=== PATIENT | male | born 1945 | race Caucasian/White ===

== ENCOUNTER 2016-08-12 08:32 | Inpatient (IN) | payer OTHER ==
[~2016-08-12] VITALS: Ht 180.3 cm; Wt 82.1 kg
[~2016-08-12 08:32] MED LIST: ACETAMINOPHEN325 M1 PO; ADULT LOW DOSE81 M1 PO; ALBUTEROL2.5 MG/3 M IH; ASPIR-LOW81 MG PO; ATIVAN1 MG PO; ATORVASTATIN CA80 MG PO; Ativan PO; BENADRYL ALLERG25 MG PO; Bactrim,Septra DS 80 PO; CARVEDILOL3.125 MG PO; CEFDINIR300 MG PO; CELEXA20 MG PO; CILOSTAZOL50 MG PO; CLEOCIN150 MG PO; COLACE CLEAR50 MG PO; CONSTULOSE10 GM/15 M PO; COREG3.125 M1 PO; CORTISPORIN EY7.5 ML OP; COSOPT EYE DROPS5 ML; CUBICIN500 MG/10 IV; DICLOFENAC SODI75 MG PO; DIGOXIN125 MCG PO; ERYTHROMYC1 APPLICAT RIGHT EYE; FENOFIBRATE160 M1 PO; FERREX 150150 MG PO; FERROUS SULFAT325 MG PO; FLOMAX0.4 MG PO; FLUOXETINE HCL60 MG PO; FOLIC ACID1 MG PO; FOLTANX RF CAP1 EACH PO; FUROSEMIDE40 MG PO; Folvite PO; GLIPIZIDE10 MG PO; GLUCOPHAGE1000 MG PO; GLUCOTROL XL10 MG PO; GLUCOTROL10 MG PO; Glucotrol PO; HUMALOG100 UNIT/1 SC; HUMALOG100 UNIT/1 SQ; HUMALOG100 UNIT/2 SC; HYDROCODON-ACE1 EAC8 PO; HYDROCODONE-AP1 EAC1 PO; HYDROGESIC 5-51 EACH PO; IBUPROFEN600 MG PO; INDERIDE 40/1 TABLET PO; LEVEMIR FL100 UNITS/ SC; LEVEMIR100 UNIT/2 SC; LISINOPRIL2.5 MG PO; LISINOPRIL5 MG PO; LO-DOSE ASPIRIN81 M1 PO; LOFIBRA,TRIGLI160 MG PO; LOPERAMIDE2 M1 PO; LYRICA50 MG PO; LYRICA75 MG PO; MAGNESIUM OXID400 MG PO; METFORMIN HCL500 MG PO; MIRALAX255 GM PO; MIRTAZAPINE45 MG PO; MOTRIN800 MG PO; MULTI-DAY VITA1 EACH PO; MULTIVITAMIN1 EAC2 PO; NIFEREX-150,FE150 MG PO; NORCO 5/3251 TABLET PO; NOVOLOG PE100 UNITS/ SC; Niferex-150,Ferrex 1 PO; OXYCODONE-APAP1 EACH PO; PERCOCET 10/1 TABLET PO; PLAVIX75 MG PO; PLETAL50 MG PO; PRAVACHOL80 MG PO; PROAIR HFA8.5 GM IH; PROVENTIL,2.5 MG/3 M IH; Pletal PO; Pravachol PO; RIMACTANE,RIFA300 MG PO; SEROQUEL12.5 MG PO; SEROquel PO; SERTRALINE HCL50 MG PO; SONATA10 MG PO; SPIRIVA1 INHALATI IH; SYMBICORT60 INHALAT IH; THERAGRAN1 TABLET PO; TRESIBA FL100 UNIT/1 SC; TRESIBA FL200 UNIT/1 SC; Theragran PO; Tricor PO; VENLAFAXINE HCL75 M3 PO; VENTOLIN HFA18 GM IH; VITAMIN C500 M1 PO; Vicodin,Norco 5/325 PO; XALATAN2.5 ML LEFT EYE; ZESTRIL,PRINIVI10 MG PO; ZOCOR40 MG PO; Zestril,Prinivil PO; celeXA PO
[2016-08-12 09:33] LABS: CREATININE 0.7 mg/dL (0.6-1.3); POTASSIUM 4.1 mEq/L (3.7-5.4)
[2016-08-12 09:50] LABS: HEMATOCRIT 27.9 % (38.0-50.0); MCH 27.3 PG (29.0-34.0); MCHC 30.8 G/DL (30.0-36.0); MCV 88.6 FL (86-99); MEAN PLAT.VOLUME 11.2 uM^3 (9.0-12.4); PLATELET COUNT 129 K/uL (156-360); RBC DIS.WIDTH-SD 50.8 % (39-53); RED BLOOD COUNT 3.15 M/uL (4.00-5.50); WHITE BLOOD COUNT 8.1 K/uL (4.1-10.2)
[2016-08-12 09:55] LABS: CREATININE 1.5 mg/dL (0.6-1.3); POTASSIUM 4.2 mEq/L (3.7-5.4)
[2016-08-12 09:58] LABS: CHLORIDE 108 mEq/L (99-109)
[2016-08-12 09:59] LABS: POTASSIUM 4.2 mEq/L (3.7-5.4); SODIUM 137 mEq/L (136-147)
[2016-08-12 10:01] LABS: D-DIMER ELISA 1.43 mg/L FEU (< 0.57); GLUCOSE 180 mg/dL (70-99)
[2016-08-12 10:02] LABS: ANION GAP 8 MEQ/L (2-14)
[2016-08-12 10:03] LABS: TOTAL BILIRUBIN 0.8 mg/dL (0.0-1.0)
[2016-08-12 10:04] LABS: ALKALINE PHOSPHATASE 58 IU/L (3-129); GFR ESTIMATE (CALCULATED) 43 mL/min/
[2016-08-12 10:06] LABS: UREA NITROGEN (BUN) 40 mg/dL (9-23)
[2016-08-12] MEDS ORDERED: LANTUS 10100 UNITS/ SC ×2 (12:35→12:46)
[2016-08-12] MEDS ORDERED: LEVOFLOXACIN500 MG PO (12:36)
[2016-08-12] MEDS ORDERED: LISINOPRIL2.5 MG PO (12:40)
[2016-08-12] MEDS ORDERED: ATROVENT 00.5 MG/2.5 IH (12:41)
[2016-08-12] MEDS ORDERED: MIRTAZAPINE45 MG PO (12:46)
[2016-08-12] MEDS ORDERED: LYRICA75 MG PO (12:47)
[2016-08-12] MEDS ORDERED: MILK OF MAGN PO (13:21)
[2016-08-12] MEDS ORDERED: DULCOLAX10 MG PR (13:22)
[2016-08-12 20:05] VITALS: BP 123/59
[2016-08-12 22:35] LABS: POINT-OF-CARE METER ID UU13113781
[2016-08-12 23:19] LABS: METH RESISTANT S AUREUS PCR NEGATIVE (NEGATIVE)
[2016-08-12 23:24] LABS: PROBE CHECK PASS; SPECIMEN PROCESSING CONTROL PASS
[2016-08-13] VITALS (7 sets, daily range): BP systolic 100–122; BP diastolic 55–70
[2016-08-13 06:50] LABS: EOSINOPHIL (%) 0 % (0-5); HEMATOCRIT 26.9 % (38.0-50.0); IMMATURE GRANULOCYTE (%) 0.2 % (0.0-0.7); LYMPHOCYTE COUNT 0.5 K/uL (1.0-2.8); MCH 27.5 PG (29.0-34.0); MCHC 31.2 G/DL (30.0-36.0); MCV 87.9 FL (86-99); MEAN PLAT.VOLUME 11.4 uM^3 (9.0-12.4); MONOCYTE (%) 0.9 % (3-12); NEUTROPHIL (%) 87.2 % (45-76); NEUTROPHIL COUNT 3.9 K/uL (1.8-6.4); PLATELET COUNT 121 K/uL (156-360); RBC DIS.WIDTH-CV 16.2 % (11.8-14.6); RBC DIS.WIDTH-SD 52.4 % (39-53); RED BLOOD COUNT 3.06 M/uL (4.00-5.50)
[2016-08-13 06:52] LABS: WHITE BLOOD COUNT 4.5 K/uL (4.1-10.2)
[2016-08-13 07:03] LABS: ANION GAP 10 MEQ/L (2-14); CHLORIDE 107 MEQ/L (99-109); GFR ESTIMATE (CALCULATED) > 59 mL/min/; GLUCOSE 230 mg/dL (70-99); POTASSIUM 4.6 MEQ/L (3.7-5.4); SAMPLE HEMOLYSIS CHECK 0; SAMPLE ICTERIC CHECK 0; SAMPLE LIPEMIA CHECK 0; SODIUM 137 MEQ/L (136-147); UREA NITROGEN (BUN) 41 mg/dL (9-23)
[2016-08-13 07:16] LABS: VANCOMYCIN, TROUGH 7.4 MCG/ML (10-20)
[2016-08-13 07:47] LABS: POINT-OF-CARE METER ID UU14174216
[2016-08-13 08:52] LABS: BASE EXCESS -5.1 mEq/L (-3 to +3); BICARBONATE 20.6 mEq/L (22-26); CARBOXY HGB 1.9 % (0-5); COMMENTS - BLOOD GASES NAC+; DEVICE HHFLNC; FI02 50 %; METHEMOGLOBIN 1.5 % (0-1.5); O2 FLOW 20 L/MIN; PCO2 40 mm Hg (35-45); PO2 66 mm Hg (80-100); SITE RR; TOTAL RESP RATE 12 resp/min; pH 7.32 (7.35-7.45)
[2016-08-13 11:31] LABS: POINT-OF-CARE METER ID UU14174216
[2016-08-14 02:12] VITALS: BP 128/75
[2016-08-14 07:13] LABS: EOSINOPHIL (%) 0 % (0-5); HEMATOCRIT 27.7 % (38.0-50.0); IMMATURE GRANULOCYTE (%) 0.1 % (0.0-0.7); LYMPHOCYTE COUNT 0.6 K/uL (1.0-2.8); MCH 27.7 PG (29.0-34.0); MCHC 31.4 G/DL (30.0-36.0); MCV 88.2 FL (86-99); MEAN PLAT.VOLUME 11.5 uM^3 (9.0-12.4); MONOCYTE (%) 2.8 % (3-12); MONOCYTE COUNT 0.2 K/uL (0-0.8); NEUTROPHIL (%) 88.4 % (45-76); NEUTROPHIL COUNT 6.6 K/uL (1.8-6.4); PLATELET COUNT 106 K/uL (156-360); RBC DIS.WIDTH-CV 16.4 % (11.8-14.6); RED BLOOD COUNT 3.14 M/uL (4.00-5.50)
[2016-08-14 07:14] LABS: WHITE BLOOD COUNT 7.5 K/uL (4.1-10.2)
[2016-08-14 07:43] LABS: ANION GAP 12 MEQ/L (2-14); CHLORIDE 109 MEQ/L (99-109); GFR ESTIMATE (CALCULATED) > 59 mL/min/; GLUCOSE 435 mg/dL (70-99); POTASSIUM 4.9 MEQ/L (3.7-5.4); SAMPLE HEMOLYSIS CHECK 0; SAMPLE ICTERIC CHECK 0; SAMPLE LIPEMIA CHECK 0; SODIUM 139 MEQ/L (136-147); UREA NITROGEN (BUN) 42 mg/dL (9-23)
[2016-08-14 08:00] VITALS: BP 139/79
[2016-08-14 11:52] VITALS: BP 122/73
[2016-08-14 13:30] LABS: POINT-OF-CARE METER ID UU14174216
[2016-08-14 13:30] LABS: POINT-OF-CARE METER ID UU14174216
[2016-08-14 15:40] VITALS: BP 116/67
[2016-08-14 16:58] LABS: POINT-OF-CARE METER ID UU14174216; POINT-OF-CARE USER ID NUTSLF44
[2016-08-14 19:52] VITALS: BP 153/86
[2016-08-14 21:20] LABS: POINT-OF-CARE USER ID ENVMNS
[2016-08-14 22:16] VITALS: BP 146/79
[2016-08-15 03:16] VITALS: BP 125/67
[2016-08-15 06:13] LABS: HEMATOCRIT 26.5 % (38.0-50.0); MCH 27.7 PG (29.0-34.0); MCHC 31.3 G/DL (30.0-36.0); MCV 88.3 FL (86-99); MEAN PLAT.VOLUME 11.9 uM^3 (9.0-12.4); PLATELET COUNT 112 K/uL (156-360); RBC DIS.WIDTH-CV 16.4 % (11.8-14.6); RBC DIS.WIDTH-SD 53.2 % (39-53); WHITE BLOOD COUNT 6.9 K/uL (4.1-10.2)
[2016-08-15 06:29] LABS: EOSINOPHIL (%) 0 % (0-5); IMMATURE GRANULOCYTE (%) 0.4 % (0.0-0.7); LYMPHOCYTE COUNT 0.8 K/uL (1.0-2.8); MONOCYTE (%) 4.4 % (3-12); MONOCYTE COUNT 0.3 K/uL (0-0.8); NEUTROPHIL COUNT 5.7 K/uL (1.8-6.4)
[2016-08-15 06:42] LABS: ANION GAP 11 MEQ/L (2-14); CHLORIDE 106 MEQ/L (99-109); GFR ESTIMATE (CALCULATED) > 59 mL/min/; GLUCOSE 319 mg/dL (70-99); POTASSIUM 4.4 MEQ/L (3.7-5.4); SAMPLE HEMOLYSIS CHECK 0; SAMPLE ICTERIC CHECK 0; SAMPLE LIPEMIA CHECK 0; SODIUM 139 MEQ/L (136-147); UREA NITROGEN (BUN) 41 mg/dL (9-23)
[2016-08-15 07:50] LABS: POINT-OF-CARE METER ID UU13113698
[2016-08-15 08:24] VITALS: BP 113/69
[2016-08-15 11:16] VITALS: BP 131/80
[2016-08-15 16:11] VITALS: BP 125/78
[2016-08-15 18:50] VITALS: BP 140/87
[2016-08-15 21:05] LABS: POINT-OF-CARE METER ID UU13113698
[2016-08-15 22:26] VITALS: BP 147/84
[2016-08-16 04:10] VITALS: BP 126/73
[2016-08-16 05:33] LABS: HEMATOCRIT 27.1 % (38.0-50.0); MCH 27.4 PG (29.0-34.0); MCHC 30.6 G/DL (30.0-36.0); MCV 89.4 FL (86-99); MEAN PLAT.VOLUME 12.1 uM^3 (9.0-12.4); NRBC (%) 0.9 /100 WBC (0-0); PLATELET COUNT 116 K/uL (156-360); RBC DIS.WIDTH-CV 16.5 % (11.8-14.6); RBC DIS.WIDTH-SD 54.2 % (39-53); RED BLOOD COUNT 3.03 M/uL (4.00-5.50); WHITE BLOOD COUNT 8.2 K/uL (4.1-10.2)
[2016-08-16 06:02] LABS: ANION GAP 7 MEQ/L (2-14); CHLORIDE 111 MEQ/L (99-109); GFR ESTIMATE (CALCULATED) > 59 mL/min/; GLUCOSE 178 mg/dL (70-99); POTASSIUM 4.8 MEQ/L (3.7-5.4); SAMPLE HEMOLYSIS CHECK 0; SAMPLE ICTERIC CHECK 0; SAMPLE LIPEMIA CHECK 0; SODIUM 143 MEQ/L (136-147); UREA NITROGEN (BUN) 40 mg/dL (9-23)
[2016-08-16 06:15] LABS: EOSINOPHIL (%) 0 % (0-5); IMMATURE GRANULOCYTE COUNT 0.1 K/uL; LYMPHOCYTE COUNT 1.2 K/uL (1.0-2.8); MONOCYTE (%) 3.9 % (3-12); MONOCYTE COUNT 0.3 K/uL (0-0.8); NEUTROPHIL (%) 80.5 % (45-76); NEUTROPHIL COUNT 6.6 K/uL (1.8-6.4)
[2016-08-16 07:28] LABS: HEMATOLOGY COMMENT 1 SMEAR COMPATIBLE; USER ID CL
[2016-08-16 07:41] VITALS: BP 125/79
[2016-08-16 11:16] LABS: POINT-OF-CARE METER ID UU13113698
[2016-08-16 11:44] VITALS: BP 117/74
[2016-08-16 16:09] LABS: POINT-OF-CARE METER ID UU13113698
[2016-08-16 16:46] VITALS: BP 149/84
[2016-08-16 19:35] VITALS: BP 176/96
[2016-08-16 20:57] LABS: POINT-OF-CARE METER ID UU13113698
[2016-08-16 22:36] VITALS: BP 157/84
[2016-08-17 03:23] VITALS: BP 146/84
[2016-08-17 06:34] LABS: NRBC (%) 1.7 /100 WBC (0-0)
[2016-08-17 06:40] LABS: EOSINOPHIL (%) 0 % (0-5); HEMATOCRIT 28.4 % (38.0-50.0); IMMATURE GRANULOCYTE COUNT 0.3 K/uL; LYMPHOCYTE COUNT 1.3 K/uL (1.0-2.8); MCH 27.3 PG (29.0-34.0); MCV 88.2 FL (86-99); MONOCYTE (%) 3.2 % (3-12); MONOCYTE COUNT 0.4 K/uL (0-0.8); NEUTROPHIL (%) 82.2 % (45-76); PLATELET COUNT 146 K/uL (156-360); RBC DIS.WIDTH-CV 16.4 % (11.8-14.6); RBC DIS.WIDTH-SD 53.2 % (39-53); RED BLOOD COUNT 3.22 M/uL (4.00-5.50)
[2016-08-17 06:58] LABS: ANION GAP 12 MEQ/L (2-14); CHLORIDE 106 MEQ/L (99-109); GFR ESTIMATE (CALCULATED) > 59 mL/min/; GLUCOSE 182 mg/dL (70-99); POTASSIUM 4.3 MEQ/L (3.7-5.4); SAMPLE HEMOLYSIS CHECK 0; SAMPLE ICTERIC CHECK 0; SAMPLE LIPEMIA CHECK 0; SODIUM 146 MEQ/L (136-147); UREA NITROGEN (BUN) 41 mg/dL (9-23)
[2016-08-17 07:08] LABS: HEMATOLOGY COMMENT 1 SMEAR COMPATIBLE; USER ID CCL
[2016-08-17 08:03] LABS: POINT-OF-CARE USER ID ENVKC36
[2016-08-17 08:30] VITALS: BP 130/80
[2016-08-17 11:06] VITALS: BP 140/72
[2016-08-17 11:21] LABS: POINT-OF-CARE USER ID ENVKC36
[2016-08-17 16:20] VITALS: BP 151/75
[2016-08-17 16:48] LABS: POINT-OF-CARE USER ID ENVKC36
[2016-08-17 19:53] VITALS: BP 156/78
[2016-08-18 00:06] VITALS: BP 150/82
[2016-08-18 03:33] VITALS: BP 140/79
[2016-08-18 04:00] VITALS: BP 140/79
[2016-08-18 06:24] LABS: MCH 27.7 PG (29.0-34.0); MCHC 31.5 G/DL (30.0-36.0); MCV 87.9 FL (86-99); MEAN PLAT.VOLUME 11.9 uM^3 (9.0-12.4); NRBC (%) 1.3 /100 WBC (0-0); PLATELET COUNT 143 K/uL (156-360); RBC DIS.WIDTH-CV 16.4 % (11.8-14.6); RBC DIS.WIDTH-SD 52.9 % (39-53); RED BLOOD COUNT 3.07 M/uL (4.00-5.50); WHITE BLOOD COUNT 9.9 K/uL (4.1-10.2)
[2016-08-18 06:34] LABS: POINT-OF-CARE METER ID UU14149397
[2016-08-18 06:46] LABS: EOSINOPHIL (%) 0 % (0-5); IMMATURE GRANULOCYTE (%) 3.6 % (0.0-0.7); IMMATURE GRANULOCYTE COUNT 0.4 K/uL; LYMPHOCYTE COUNT 1.2 K/uL (1.0-2.8); MONOCYTE COUNT 0.5 K/uL (0-0.8); NEUTROPHIL (%) 79.5 % (45-76); NEUTROPHIL COUNT 7.9 K/uL (1.8-6.4)
[2016-08-18 06:53] LABS: ANION GAP 8 MEQ/L (2-14); CHLORIDE 104 MEQ/L (99-109); GFR ESTIMATE (CALCULATED) > 59 mL/min/; GLUCOSE 198 mg/dL (70-99); POTASSIUM 4.2 MEQ/L (3.7-5.4); SAMPLE HEMOLYSIS CHECK 0; SAMPLE ICTERIC CHECK 0; SAMPLE LIPEMIA CHECK 0; SODIUM 141 MEQ/L (136-147); UREA NITROGEN (BUN) 41 mg/dL (9-23)
[2016-08-18 07:11] LABS: HEMATOLOGY COMMENT 1 SMEAR COMPATIBLE; USER ID SDF
[2016-08-18 07:46] VITALS: BP 123/74
[2016-08-18 17:24] VITALS: BP 157/81
[2016-08-18 21:30] LABS: POINT-OF-CARE METER ID UU14149397
[2016-08-18 23:47] VITALS: BP 168/88
[2016-08-19 05:42] LABS: HEMATOCRIT 27.1 % (38.0-50.0); MCH 27.1 PG (29.0-34.0); MCV 87.4 FL (86-99); MEAN PLAT.VOLUME 11.5 uM^3 (9.0-12.4); NRBC (%) 1.4 /100 WBC (0-0); PLATELET COUNT 167 K/uL (156-360); RBC DIS.WIDTH-CV 16.6 % (11.8-14.6); RBC DIS.WIDTH-SD 52.8 % (39-53); WHITE BLOOD COUNT 9.6 K/uL (4.1-10.2)
[2016-08-19 06:10] LABS: ANION GAP 6 MEQ/L (2-14); CHLORIDE 105 MEQ/L (99-109); GFR ESTIMATE (CALCULATED) > 59 mL/min/; GLUCOSE 258 mg/dL (70-99); POTASSIUM 3.9 MEQ/L (3.7-5.4); SAMPLE HEMOLYSIS CHECK 0; SAMPLE ICTERIC CHECK 0; SAMPLE LIPEMIA CHECK 0; SODIUM 141 MEQ/L (136-147); UREA NITROGEN (BUN) 36 mg/dL (9-23)
[2016-08-19 06:29] LABS: POINT-OF-CARE METER ID UU14149397
[2016-08-19 06:59] LABS: EOSINOPHIL (%) 0 % (0-5); HEMATOLOGY COMMENT 1 SMEAR COMPATIBLE; IMMATURE GRANULOCYTE COUNT 0.5 K/uL; LYMPHOCYTE COUNT 1.8 K/uL (1.0-2.8); MONOCYTE (%) 5.9 % (3-12); MONOCYTE COUNT 0.6 K/uL (0-0.8); NEUTROPHIL (%) 70.1 % (45-76); NEUTROPHIL COUNT 6.8 K/uL (1.8-6.4); PLAT.SUFFICIENCY ADEQUATE; USER ID SDF
[2016-08-19 07:00] VITALS: BP 128/77
[2016-08-19 15:30] VITALS: BP 137/72
[2016-08-19 17:00] LABS: POINT-OF-CARE METER ID UU14149397
[2016-08-19 22:37] LABS: POINT-OF-CARE METER ID UU14149397
[2016-08-20 00:09] VITALS: BP 167/92
[2016-08-20 06:54] LABS: POINT-OF-CARE METER ID UU14149397
[2016-08-20 07:07] LABS: HEMATOCRIT 28.2 % (38.0-50.0); MCH 26.8 PG (29.0-34.0); MCHC 30.5 G/DL (30.0-36.0); MCV 87.9 FL (86-99); MEAN PLAT.VOLUME 11.7 uM^3 (9.0-12.4); PLATELET COUNT 183 K/uL (156-360); RBC DIS.WIDTH-CV 16.6 % (11.8-14.6); RBC DIS.WIDTH-SD 51.3 % (39-53); RED BLOOD COUNT 3.21 M/uL (4.00-5.50); WHITE BLOOD COUNT 8.7 K/uL (4.1-10.2)
[2016-08-20 07:46] VITALS: BP 129/75
[2016-08-20 07:51] LABS: ANION GAP 7 MEQ/L (2-14); CHLORIDE 105 MEQ/L (99-109); GFR ESTIMATE (CALCULATED) > 59 mL/min/; POTASSIUM 4.1 MEQ/L (3.7-5.4); SAMPLE HEMOLYSIS CHECK 0; SAMPLE ICTERIC CHECK 0; SAMPLE LIPEMIA CHECK 0; SODIUM 143 MEQ/L (136-147); UREA NITROGEN (BUN) 32 mg/dL (9-23)
[2016-08-20 08:05] LABS: GLUCOSE 115 mg/dL (70-99)
[2016-08-20 08:34] LABS: ABS NEUTROPHIL COUNT 6.71; ANISOCYTOSIS 1+; EOSINOPHIL (%) 0.1 % (0-5); IMMATURE GRANULOCYTE (%) 6.8 % (0.0-0.7); IMMATURE GRANULOCYTE COUNT 5.9 K/uL; LYMPHOCYTE COUNT 1.9 K/uL (1.0-2.8); MICROCYTOSIS 1+; MONOCYTE (%) 4.5 % (3-12); MONOCYTE COUNT 0.4 K/uL (0-0.8); NEUTROPHIL (%) 66.9 % (45-76); NEUTROPHIL COUNT 5.8 K/uL (1.8-6.4); OVALOCYTES 1+; PLAT.SUFFICIENCY ADEQUATE; TEAR DROP CELLS OCC; USER ID BLP
[2016-08-20 16:07] VITALS: BP 157/82
[2016-08-20 20:00] VITALS: BP 163/87
[2016-08-20 22:15] LABS: POINT-OF-CARE METER ID UU14149397
[2016-08-20 23:36] VITALS: BP 168/88
[2016-08-21 04:53] VITALS: BP 170/78
[2016-08-21 06:06] LABS: HEMATOCRIT 27.8 % (38.0-50.0); MCHC 30.6 G/DL (30.0-36.0); MCV 88.3 FL (86-99); MEAN PLAT.VOLUME 11.5 uM^3 (9.0-12.4); NRBC (%) 0.9 /100 WBC (0-0); PLATELET COUNT 177 K/uL (156-360); RBC DIS.WIDTH-CV 17.1 % (11.8-14.6); RBC DIS.WIDTH-SD 54.4 % (39-53); RED BLOOD COUNT 3.15 M/uL (4.00-5.50); WHITE BLOOD COUNT 9.6 K/uL (4.1-10.2)
[2016-08-21 06:19] LABS: EOSINOPHIL (%) 0.2 % (0-5); IMMATURE GRANULOCYTE COUNT 0.3 K/uL; MONOCYTE (%) 5.2 % (3-12); MONOCYTE COUNT 0.5 K/uL (0-0.8); NEUTROPHIL (%) 70.3 % (45-76); NEUTROPHIL COUNT 6.8 K/uL (1.8-6.4)
[2016-08-21 06:28] LABS: ANION GAP 7 MEQ/L (2-14); CHLORIDE 105 MEQ/L (99-109); GFR ESTIMATE (CALCULATED) > 59 mL/min/; GLUCOSE 93 mg/dL (70-99); POTASSIUM 3.8 MEQ/L (3.7-5.4); SAMPLE HEMOLYSIS CHECK 0; SAMPLE ICTERIC CHECK 0; SAMPLE LIPEMIA CHECK 0; SODIUM 142 MEQ/L (136-147); UREA NITROGEN (BUN) 31 mg/dL (9-23)
[2016-08-21 06:58] LABS: HEMATOLOGY COMMENT 1 SMEAR COMPATIBLE; PLAT.SUFFICIENCY ADEQUATE
[2016-08-21 07:11] LABS: POINT-OF-CARE METER ID UU14149397
[2016-08-21 08:08] VITALS: BP 124/69
[2016-08-21 11:44] VITALS: BP 116/67
[2016-08-21 11:44] LABS: POINT-OF-CARE METER ID UU14149397
[2016-08-21] MEDS ORDERED: SPIRIVA RESPIMAT4 GM IH (13:54)
[2016-08-21] MEDS ORDERED: DUONEB 2.5-0.5 M3 ML AEROSOL ×2 (13:54)
[2016-08-21] MEDS ORDERED: LOVENOX40 MG/0.4 SC (13:54)
[2016-08-21] MEDS ORDERED: LISINOPRIL5 MG PO (13:55)
[2016-08-21] MEDS ORDERED: ADVAIR HFA120 INHALA IH (13:57)
[2016-08-21] MEDS ORDERED: NOVOLOG PE100 UNITS/ SC (13:58)
[2016-08-21] MEDS ORDERED: PREDNISONE20 MG PO (13:58)
[2016-08-21] MEDS ORDERED: ACETAMINOPHEN-1 EAC1 PO (13:59)
[2016-08-21] MEDS ORDERED: LYRICA75 MG PO (13:59)
[2016-08-21] MEDS ORDERED: ATIVAN1 MG PO (13:59)
[2016-08-21 15:36] VITALS: BP 145/83
[2016-08-21 16:12] LABS: POINT-OF-CARE METER ID UU14149397
== END 2016-08-21 18:24 | DRG 177 ==
LOC: EME 08:32 → 4EAST 13:52 → EDOF 13:52 → 3EAST 13:52 → 4EAST 20:02 → 3EAST 08-18 03:26
PROVIDERS: Emergency Medicine; Family Medicine
PROC: 5A09357 Assistance with Respiratory Ventilation, Less than 24 Consecutive Hours, Continuous Positive Airway Pressure (ICD-10-PCS; principal; 2016-08-16)
DX: J69.0 Pneumonitis due to inhalation of food and vomit (principal); J96.21 Acute and chronic respiratory failure with hypoxia; J44.1 Chronic obstructive pulmonary disease with (acute) exacerbation; N17.9 Acute kidney failure, unspecified; R13.10 Dysphagia, unspecified; I95.9 Hypotension, unspecified; I42.9 Cardiomyopathy, unspecified; I12.9 Hypertensive chronic kidney disease with stage 1 through stage 4 chronic kidney disease, or unspecified chronic kidney disease; N18.9 Chronic kidney disease, unspecified; D64.9 Anemia, unspecified; I44.4 Left anterior fascicular block; E11.9 Type 2 diabetes mellitus without complications; I73.9 Peripheral vascular disease, unspecified; G40.909 Epilepsy, unspecified, not intractable, without status epilepticus; G62.9 Polyneuropathy, unspecified; E78.5 Hyperlipidemia, unspecified; I25.10 Atherosclerotic heart disease of native coronary artery without angina pectoris; M19.90 Unspecified osteoarthritis, unspecified site; I25.2 Old myocardial infarction; Z95.1 Presence of aortocoronary bypass graft; Z87.891 Personal history of nicotine dependence; Z86.73 Personal history of transient ischemic attack (TIA), and cerebral infarction without residual deficits
CPT/HCPCS: 31720; 36600; 71010; 74230; 80047; 80048; 80053; 80202; 82803; 82948; 83605; 85025; 85027; 85379; 87040; 87081; 87641; 92526 GN; 92610 GN; 92611 GN; 93005; 94640; 94640 76; 94660; 94667; 94668; 94760; 94799; 97530 GO; 97530 GP; 99202; 99281; 99285; J1650; J1815; J1940; J2405; J2543; J2930; J3370; J7030; J7050; J7512

== ENCOUNTER 2016-10-11 04:03 | Observation (INO) | payer OTHER ==
[~2016-10-11] VITALS: Ht 180.3 cm; Wt 77.9 kg
[~2016-10-11 04:03] MED LIST changes: +ACETAMINOPHEN-1 EAC1 PO; +ADVAIR HFA120 INHALA IH; +ATROVENT 00.5 MG/2.5 IH; +DULCOLAX10 MG PR; +DUONEB 2.5-0.5 M3 ML AEROSOL; +LANTUS 10100 UNITS/ SC; +LEVOFLOXACIN500 MG PO; +LOVENOX40 MG/0.4 SC; +MILK OF MAGN PO; +PREDNISONE20 MG PO; +SPIRIVA RESPIMAT4 GM IH; +XALATAN2.5 ML RIGHT EYE
[2016-10-11 04:21] LABS: HEMATOCRIT 34.3 % (38.0-50.0); MCH 27.6 PG (29.0-34.0); MCHC 31.2 G/DL (30.0-36.0); MCV 88.6 FL (86-99); MEAN PLAT.VOLUME 10.3 uM^3 (9.0-12.4); PLATELET COUNT 171 K/uL (156-360); RBC DIS.WIDTH-CV 19.2 % (11.8-14.6); RBC DIS.WIDTH-SD 60.1 % (39-53); RED BLOOD COUNT 3.87 M/uL (4.00-5.50); WHITE BLOOD COUNT 10.4 K/uL (4.1-10.2)
[2016-10-11] MEDS ORDERED: PREDNISONE5 MG PO (04:25)
[2016-10-11] MEDS ORDERED: TRESIBA FL100 UNIT/1 SC (04:26)
[2016-10-11] MEDS ORDERED: VENTOLIN HFA18 GM IH (04:30)
[2016-10-11 04:31] LABS: CHLORIDE 106 mEq/L (99-109); POTASSIUM 4.3 mEq/L (3.7-5.4); SODIUM 142 mEq/L (136-147)
[2016-10-11 04:32] LABS: GLUCOSE 277 mg/dL (70-99)
[2016-10-11 04:34] LABS: ANION GAP 13 MEQ/L (2-14)
[2016-10-11 04:36] LABS: GFR ESTIMATE (CALCULATED) > 59 mL/min/
[2016-10-11 04:58] LABS: INTER. NORMALIZED RATIO 1.1; PROTHROMBIN TIME 10.7 (9.2-11.2); PTT 25.9 (25-32)
[2016-10-11 05:03] LABS: TOTAL BILIRUBIN 0.4 mg/dL (0.0-1.0)
[2016-10-11 05:05] LABS: ALKALINE PHOSPHATASE 85 IU/L (3-129)
[2016-10-11 05:06] LABS: UREA NITROGEN (BUN) 30 mg/dL (9-23)
[2016-10-11 05:07] LABS: DIRECT BILIRUBIN 0.1 mg/dL (0.0-0.3)
[2016-10-11 05:08] LABS: LIPASE 38 U/L (1.0-51.0)
[2016-10-11 05:09] LABS: TROP-I INTERPRETATION NEGATIVE; TROPONIN-I 0.14 ng/mL (0.0-0.30)
[2016-10-11 11:46] VITALS: BP 119/69
[2016-10-11 12:31] LABS: TROP-I INTERPRETATION NEGATIVE; TROPONIN-I 0.07 ng/mL (0.0-0.30)
[2016-10-11 12:46] LABS: GLUCOSE 650 mg/dL (70-99)
[2016-10-11 16:00] VITALS: BP 131/73
[2016-10-11 18:50] LABS: TROP-I INTERPRETATION NEGATIVE; TROPONIN-I 0.09 ng/mL (0.0-0.30)
[2016-10-11 19:00] VITALS: BP 121/60
[2016-10-11 19:39] LABS: CARBON DIOXIDE (BICARBONATE) 25.4 MEQ/L (20-31)
[2016-10-11 20:10] LABS: ALKALINE PHOSPHATASE 76 IU/L (3-129); ANION GAP 17 MEQ/L (2-14); CHLORIDE 95 MEQ/L (99-109); GFR ESTIMATE (CALCULATED) 49 mL/min/; MAGNESIUM 2.1 mg/dl (1.3-2.7); POTASSIUM 4.5 MEQ/L (3.7-5.4); SAMPLE HEMOLYSIS CHECK 0; SAMPLE ICTERIC CHECK 0; SAMPLE LIPEMIA CHECK 0; TOTAL BILIRUBIN 0.5 MG/DL (0.0-1.0); UREA NITROGEN (BUN) 37 mg/dL (9-23)
[2016-10-11 20:11] LABS: GLUCOSE 510 mg/dL (70-99); SODIUM 134 MEQ/L (136-147)
[2016-10-11 21:55] LABS: POINT-OF-CARE METER ID UU13113831
[2016-10-12 00:15] VITALS: BP 120/78
[2016-10-12 00:47] LABS: POINT-OF-CARE METER ID UU13113831
[2016-10-12 04:15] VITALS: BP 130/81
[2016-10-12 06:11] LABS: HEMATOCRIT 32.1 % (38.0-50.0); MCH 26.6 PG (29.0-34.0); MCHC 31.2 G/DL (30.0-36.0); MCV 85.4 FL (86-99); MEAN PLAT.VOLUME 11.1 uM^3 (9.0-12.4); PLATELET COUNT 178 K/uL (156-360); RBC DIS.WIDTH-CV 19.7 % (11.8-14.6); RBC DIS.WIDTH-SD 60.7 % (39-53); RED BLOOD COUNT 3.76 M/uL (4.00-5.50); WHITE BLOOD COUNT 12.7 K/uL (4.1-10.2)
[2016-10-12 06:32] LABS: ANION GAP 12 MEQ/L (2-14); CHLORIDE 103 MEQ/L (99-109); GFR ESTIMATE (CALCULATED) > 59 mL/min/; POTASSIUM 4.1 MEQ/L (3.7-5.4); SAMPLE HEMOLYSIS CHECK 0; SAMPLE ICTERIC CHECK 0; SAMPLE LIPEMIA CHECK 0; SODIUM 140 MEQ/L (136-147); UREA NITROGEN (BUN) 36 mg/dL (9-23)
[2016-10-12 06:36] LABS: GLUCOSE 133 mg/dL (70-99)
[2016-10-12 07:02] VITALS: BP 124/70
[2016-10-12 08:36] LABS: Estimated Average Glucose 209 mg/dL (70-123)
[2016-10-12 08:59] LABS: POINT-OF-CARE METER ID UU13113700
[2016-10-12 09:26] LABS: HEMOGLOBIN A1c (GLYCOHEMOGLOB) 8.9 % HGB (Below 5.7)
[2016-10-12] MEDS ORDERED: NOVOLOG PE100 UNITS/ SC (09:40)
[2016-10-12] MEDS ORDERED: TRESIBA FL100 UNIT/1 SC (09:40)
[2016-10-12] MEDS ORDERED: PREDNISONE10 MG PO (09:42)
[2016-10-12] MEDS ORDERED: SPIRIVA RESPIMAT4 GM IH (09:42)
[2016-10-12 12:31] LABS: POINT-OF-CARE METER ID UU13113700
[2016-10-12 12:31] LABS: POINT-OF-CARE METER ID UU13113831
[2016-10-12 12:31] LABS: POINT-OF-CARE METER ID UU13113700
[2016-10-12 12:31] LABS: POINT-OF-CARE METER ID UU13113831
[2016-10-12] MEDS ORDERED: DELTASONE20 M1 PO (22:47)
[2016-10-12] MEDS ORDERED: FUROSEMIDE20 MG PO (22:47)
[2016-10-12] MEDS ORDERED: SPIRIVA1 INHALATI IH (22:48)
[2016-10-12] MEDS ORDERED: ADVAIR HFA120 INHALA IH (22:48)
[2016-10-25] MEDS ORDERED: PREDNISONE5 MG PO (14:07)
[2016-10-29] MEDS ORDERED: FUROSEMIDE20 MG PO (11:48)
[2016-10-29] MEDS ORDERED: AUGMENTIN500 MG PO (11:53)
== END 2016-10-12 10:45 | disposition home or self-care (01) ==
LOC: EME 04:03 → 5WEST 06:25 → EDOF 06:25 → 5WEST 07:22
PROVIDERS: Hospitalist; Nurse Practitioner Adult Health; Physician Assistant Medical
DX: I13.0 Hypertensive heart and chronic kidney disease with heart failure and stage 1 through stage 4 chronic kidney disease, or unspecified chronic kidney disease (principal); I50.23 Acute on chronic systolic (congestive) heart failure; N18.9 Chronic kidney disease, unspecified; J44.1 Chronic obstructive pulmonary disease with (acute) exacerbation; D64.9 Anemia, unspecified; I25.10 Atherosclerotic heart disease of native coronary artery without angina pectoris; Z95.1 Presence of aortocoronary bypass graft; G89.29 Other chronic pain; F32.9 Major depressive disorder, single episode, unspecified; E11.65 Type 2 diabetes mellitus with hyperglycemia; Z86.73 Personal history of transient ischemic attack (TIA), and cerebral infarction without residual deficits; I25.2 Old myocardial infarction; Z87.891 Personal history of nicotine dependence; I73.9 Peripheral vascular disease, unspecified; Z79.4 Long term (current) use of insulin; M19.90 Unspecified osteoarthritis, unspecified site
CPT/HCPCS: 71020; 80048; 80053; 80076; 82010; 82803; 82947 91; 82948; 83036; 83690; 83735; 83880; 84484; 85027; 85610; 85730; 93005; 93306; 94640; 94640 76; 94760; 99202; 99281; 99285; G0378; G8978 GP CJ; G8979 GP CI; J1644; J1815; J1940; J2930; J3480; J7030; J7512

== ENCOUNTER 2016-10-12 19:17 | Inpatient (IN) | payer OTHER ==
[~2016-10-12] VITALS: Ht 180.3 cm; Wt 77.2 kg
[~2016-10-12 19:17] MED LIST changes: +PREDNISONE10 MG PO; +PREDNISONE5 MG PO
[2016-10-12 19:59] LABS: HEMATOCRIT 33.2 % (38.0-50.0); MCH 27.7 PG (29.0-34.0); MCHC 31.9 G/DL (30.0-36.0); MCV 86.9 FL (86-99); MEAN PLAT.VOLUME 10.2 uM^3 (9.0-12.4); PLATELET COUNT 173 K/uL (156-360); RBC DIS.WIDTH-CV 20.3 % (11.8-14.6); RBC DIS.WIDTH-SD 60.9 % (39-53); RED BLOOD COUNT 3.82 M/uL (4.00-5.50); WHITE BLOOD COUNT 10.3 K/uL (4.1-10.2)
[2016-10-12 20:09] LABS: CHLORIDE 108 mEq/L (99-109); POTASSIUM 4.4 mEq/L (3.7-5.4); SODIUM 142 mEq/L (136-147)
[2016-10-12 20:12] LABS: ANION GAP 13 MEQ/L (2-14)
[2016-10-12 20:15] LABS: GFR ESTIMATE (CALCULATED) > 59 mL/min/
[2016-10-12 20:16] LABS: UREA NITROGEN (BUN) 37 mg/dL (9-23)
[2016-10-12 20:17] LABS: GLUCOSE 242 mg/dL (70-99)
[2016-10-12 20:42] LABS: INFLUENZA A VIRAL ANTIGEN NEGATIVE; INFLUENZA B VIRAL ANTIGEN POSITIVE
[2016-10-12 21:00] VITALS: BP 128/66
[2016-10-12 21:30] VITALS: BP 128/60
[2016-10-12 22:00] VITALS: BP 123/65
[2016-10-12 22:29] LABS: BASE EXCESS -0.7 mEq/L (-3 to +3); BICARBONATE 23.1 mEq/L (22-26); CARBOXY HGB 1.9 % (0-5); METHEMOGLOBIN 0.9 % (0-1.5); PCO2 34 mm Hg (35-45); PO2 129 mm Hg (80-100); pH 7.44 (7.35-7.45)
[2016-10-12 22:30] VITALS: BP 120/63
[2016-10-12 22:30] LABS: COMMENTS - BLOOD GASES A+C+; DEVICE NRBM; FI02 100 %; SITE RR
[2016-10-12] MEDS ORDERED: FUROSEMIDE20 MG PO (22:47)
[2016-10-12] MEDS ORDERED: DELTASONE20 M1 PO (22:47)
[2016-10-12] MEDS ORDERED: ADVAIR HFA120 INHALA IH (22:48)
[2016-10-12] MEDS ORDERED: SPIRIVA1 INHALATI IH (22:48)
[2016-10-13 00:33] VITALS: BP 121/64
[2016-10-13 00:56] LABS: POINT-OF-CARE METER ID UU13113781
[2016-10-13 04:02] VITALS: BP 121/64
[2016-10-13 06:45] LABS: HEMATOCRIT 31.1 % (38.0-50.0); MCH 26.4 PG (29.0-34.0); MCHC 29.9 G/DL (30.0-36.0); MCV 88.4 FL (86-99); MEAN PLAT.VOLUME 11.1 uM^3 (9.0-12.4); PLATELET COUNT 150 K/uL (156-360); RBC DIS.WIDTH-CV 20.6 % (11.8-14.6); RBC DIS.WIDTH-SD 65.7 % (39-53); RED BLOOD COUNT 3.52 M/uL (4.00-5.50); WHITE BLOOD COUNT 8.3 K/uL (4.1-10.2)
[2016-10-13 07:35] LABS: EOSINOPHIL (%) 0 % (0-5); IMMATURE GRANULOCYTE (%) 0.2 % (0.0-0.7); LYMPHOCYTE COUNT 0.7 K/uL (1.0-2.8); MONOCYTE (%) 3.5 % (3-12); MONOCYTE COUNT 0.3 K/uL (0-0.8); NEUTROPHIL (%) 88.1 % (45-76); NEUTROPHIL COUNT 7.3 K/uL (1.8-6.4)
[2016-10-13 08:22] LABS: ALKALINE PHOSPHATASE 60 IU/L (3-129); ANION GAP 9 MEQ/L (2-14); CHLORIDE 109 MEQ/L (99-109); DIRECT BILIRUBIN 0.1 mg/dL (0.0-0.3); GFR ESTIMATE (CALCULATED) > 59 mL/min/; GLUCOSE 308 mg/dL (70-99); POTASSIUM 5.2 MEQ/L (3.7-5.4); SAMPLE HEMOLYSIS CHECK 0; SAMPLE ICTERIC CHECK 0; SAMPLE LIPEMIA CHECK 0; SODIUM 141 MEQ/L (136-147); TOTAL BILIRUBIN 0.4 MG/DL (0.0-1.0); UREA NITROGEN (BUN) 32 mg/dL (9-23)
[2016-10-13 08:47] VITALS: BP 110/62
[2016-10-13 11:26] VITALS: BP 112/60
[2016-10-13 12:16] LABS: POINT-OF-CARE METER ID UU14174216; POINT-OF-CARE USER ID ENVKC36
[2016-10-13 15:48] VITALS: BP 108/62
[2016-10-13 16:34] LABS: POINT-OF-CARE METER ID UU13113781; POINT-OF-CARE USER ID ENVKC36
[2016-10-13 18:58] VITALS: BP 104/59
[2016-10-13 21:44] LABS: POINT-OF-CARE METER ID UU13113781
[2016-10-14 00:13] VITALS: BP 105/54
[2016-10-14 04:50] VITALS: BP 104/52
[2016-10-14 06:23] LABS: HEMATOCRIT 29.3 % (38.0-50.0); MCHC 30.7 G/DL (30.0-36.0); MEAN PLAT.VOLUME 11.5 uM^3 (9.0-12.4); PLATELET COUNT 144 K/uL (156-360); RBC DIS.WIDTH-CV 20.2 % (11.8-14.6); RBC DIS.WIDTH-SD 64.8 % (39-53); RED BLOOD COUNT 3.33 M/uL (4.00-5.50); WHITE BLOOD COUNT 9.5 K/uL (4.1-10.2)
[2016-10-14 07:01] LABS: ANION GAP 9 MEQ/L (2-14); CHLORIDE 109 MEQ/L (99-109); GFR ESTIMATE (CALCULATED) > 59 mL/min/; GLUCOSE 239 mg/dL (70-99); SAMPLE HEMOLYSIS CHECK 0; SAMPLE ICTERIC CHECK 0; SAMPLE LIPEMIA CHECK 0; SODIUM 140 MEQ/L (136-147); UREA NITROGEN (BUN) 35 mg/dL (9-23)
[2016-10-14 07:56] LABS: INTERNAL CONTROL VALID? YES
[2016-10-14 07:56] LABS: POINT-OF-CARE METER ID UU13113698; POINT-OF-CARE USER ID ENVKC36
[2016-10-14 08:13] VITALS: BP 132/64
[2016-10-14 11:09] VITALS: BP 127/69
[2016-10-14 14:54] VITALS: BP 115/70
[2016-10-14 20:17] VITALS: BP 112/68
[2016-10-15] VITALS (7 sets, daily range): BP systolic 110–138; BP diastolic 64–81
[2016-10-15 04:29] LABS: POINT-OF-CARE METER ID UU14174225
[2016-10-15 06:06] LABS: POINT-OF-CARE METER ID UU14188625
[2016-10-15 07:19] LABS: HEMATOCRIT 28.4 % (38.0-50.0); MCH 27.8 PG (29.0-34.0); MCHC 31.7 G/DL (30.0-36.0); MCV 87.7 FL (86-99); MEAN PLAT.VOLUME 11.2 uM^3 (9.0-12.4); PLATELET COUNT 143 K/uL (156-360); RBC DIS.WIDTH-CV 20.1 % (11.8-14.6); RBC DIS.WIDTH-SD 64.7 % (39-53); RED BLOOD COUNT 3.24 M/uL (4.00-5.50); WHITE BLOOD COUNT 9.8 K/uL (4.1-10.2)
[2016-10-15 07:44] LABS: ANION GAP 10 MEQ/L (2-14); CHLORIDE 109 MEQ/L (99-109); GFR ESTIMATE (CALCULATED) > 59 mL/min/; GLUCOSE 172 mg/dL (70-99); POTASSIUM 4.1 MEQ/L (3.7-5.4); SAMPLE HEMOLYSIS CHECK 0; SAMPLE ICTERIC CHECK 0; SAMPLE LIPEMIA CHECK 0; SODIUM 142 MEQ/L (136-147); UREA NITROGEN (BUN) 38 mg/dL (9-23)
[2016-10-15 09:56] LABS: POINT-OF-CARE METER ID UU14188625
[2016-10-15 11:30] LABS: POINT-OF-CARE METER ID UU14188625
[2016-10-15 16:31] LABS: POINT-OF-CARE METER ID UU14188625
[2016-10-16 04:04] VITALS: BP 133/71
[2016-10-16 06:53] LABS: HEMATOCRIT 32.4 % (38.0-50.0); MCH 27.3 PG (29.0-34.0); MCHC 31.2 G/DL (30.0-36.0); MCV 87.6 FL (86-99); MEAN PLAT.VOLUME 11.1 uM^3 (9.0-12.4); NRBC (%) 0.9 /100 WBC (0-0); PLATELET COUNT 174 K/uL (156-360); RBC DIS.WIDTH-CV 19.9 % (11.8-14.6); RBC DIS.WIDTH-SD 63.7 % (39-53)
[2016-10-16 07:11] LABS: WHITE BLOOD COUNT 13.3 K/uL (4.1-10.2)
[2016-10-16 07:31] VITALS: BP 124/70
[2016-10-16 07:40] LABS: ANION GAP 13 MEQ/L (2-14); CHLORIDE 107 MEQ/L (99-109); GFR ESTIMATE (CALCULATED) 54 mL/min/; POTASSIUM 3.4 MEQ/L (3.7-5.4); SAMPLE HEMOLYSIS CHECK 0; SAMPLE ICTERIC CHECK 0; SAMPLE LIPEMIA CHECK 0; SODIUM 144 MEQ/L (136-147); UREA NITROGEN (BUN) 39 mg/dL (9-23)
[2016-10-16 07:46] LABS: GLUCOSE 96 mg/dL (70-99)
[2016-10-16 07:58] LABS: POINT-OF-CARE METER ID UU14188625
[2016-10-16 11:16] VITALS: BP 131/72
[2016-10-16 16:53] VITALS: BP 126/71
[2016-10-16 19:35] VITALS: BP 125/78
[2016-10-16 21:23] LABS: POINT-OF-CARE METER ID UU14188625
[2016-10-16 23:50] VITALS: BP 133/71
[2016-10-17 03:45] VITALS: BP 126/71
[2016-10-17 05:24] VITALS: BP 90/56
[2016-10-17 06:27] LABS: HEMATOCRIT 35.9 % (38.0-50.0); MCHC 30.4 G/DL (30.0-36.0); MCV 88.9 FL (86-99); MEAN PLAT.VOLUME 11.5 uM^3 (9.0-12.4); NRBC (%) 0.9 /100 WBC (0-0); PLATELET COUNT 192 K/uL (156-360); RBC DIS.WIDTH-CV 20.4 % (11.8-14.6); RBC DIS.WIDTH-SD 65.1 % (39-53); RED BLOOD COUNT 4.04 M/uL (4.00-5.50); WHITE BLOOD COUNT 10.7 K/uL (4.1-10.2)
[2016-10-17 06:52] LABS: ANION GAP 13 MEQ/L (2-14); CHLORIDE 106 MEQ/L (99-109); GFR ESTIMATE (CALCULATED) 58 mL/min/; GLUCOSE 81 mg/dL (70-99); POTASSIUM 3.9 MEQ/L (3.7-5.4); SAMPLE HEMOLYSIS CHECK 0; SAMPLE ICTERIC CHECK 0; SAMPLE LIPEMIA CHECK 0; SODIUM 144 MEQ/L (136-147); UREA NITROGEN (BUN) 37 mg/dL (9-23)
[2016-10-17 07:22] VITALS: BP 129/64
[2016-10-17 08:09] LABS: POINT-OF-CARE METER ID UU14188625
[2016-10-17 08:25] LABS: D-DIMER ELISA 1.46 mg/L FEU (< 0.57)
[2016-10-17 11:04] VITALS: BP 126/66
[2016-10-17 15:20] VITALS: BP 118/71
[2016-10-17 19:27] VITALS: BP 126/54
[2016-10-17 21:20] LABS: POINT-OF-CARE METER ID UU14174225
[2016-10-18] VITALS (7 sets, daily range): BP systolic 111–138; BP diastolic 54–77
[2016-10-18 07:12] LABS: HEMATOCRIT 33.9 % (38.0-50.0); MCH 26.9 PG (29.0-34.0); MCHC 30.7 G/DL (30.0-36.0); MCV 87.6 FL (86-99); MEAN PLAT.VOLUME 11.8 uM^3 (9.0-12.4); NRBC (%) 0.6 /100 WBC (0-0); PLATELET COUNT 192 K/uL (156-360); RBC DIS.WIDTH-CV 20.1 % (11.8-14.6); RED BLOOD COUNT 3.87 M/uL (4.00-5.50); WHITE BLOOD COUNT 10.3 K/uL (4.1-10.2)
[2016-10-18 07:21] LABS: ANION GAP 14 MEQ/L (2-14); CHLORIDE 105 MEQ/L (99-109); GFR ESTIMATE (CALCULATED) > 59 mL/min/; SAMPLE HEMOLYSIS CHECK 0; SAMPLE ICTERIC CHECK 0; SAMPLE LIPEMIA CHECK 0; SODIUM 143 MEQ/L (136-147); UREA NITROGEN (BUN) 37 mg/dL (9-23)
[2016-10-18 07:24] LABS: GLUCOSE 173 mg/dL (70-99)
[2016-10-18 11:03] LABS: POINT-OF-CARE METER ID UU14188625
[2016-10-18 16:15] LABS: POINT-OF-CARE METER ID UU14188625
[2016-10-19 03:58] VITALS: BP 105/64
[2016-10-19 07:37] LABS: POINT-OF-CARE METER ID UU14174225
[2016-10-19 07:42] VITALS: BP 120/64
[2016-10-19 11:15] VITALS: BP 105/65
[2016-10-19 15:19] VITALS: BP 119/87
[2016-10-19 22:22] VITALS: BP 130/62
[2016-10-19 22:41] LABS: POINT-OF-CARE METER ID UU14174225
[2016-10-19 23:58] VITALS: BP 131/69
[2016-10-20 06:58] LABS: HEMATOCRIT 31.4 % (38.0-50.0); MCHC 30.3 G/DL (30.0-36.0); MCV 89.2 FL (86-99); MEAN PLAT.VOLUME 11.5 uM^3 (9.0-12.4); PLATELET COUNT 172 K/uL (156-360); RBC DIS.WIDTH-CV 20.5 % (11.8-14.6); RBC DIS.WIDTH-SD 65.1 % (39-53); RED BLOOD COUNT 3.52 M/uL (4.00-5.50); WHITE BLOOD COUNT 8.5 K/uL (4.1-10.2)
[2016-10-20 07:20] LABS: ANION GAP 10 MEQ/L (2-14); CHLORIDE 106 MEQ/L (99-109); GFR ESTIMATE (CALCULATED) > 59 mL/min/; GLUCOSE 216 mg/dL (70-99); SAMPLE HEMOLYSIS CHECK 0; SAMPLE ICTERIC CHECK 0; SAMPLE LIPEMIA CHECK 0; SODIUM 140 MEQ/L (136-147); UREA NITROGEN (BUN) 36 mg/dL (9-23)
[2016-10-20 07:35] VITALS: BP 133/71
[2016-10-20 11:16] LABS: POINT-OF-CARE METER ID UU14188625
[2016-10-20 15:29] VITALS: BP 110/71
[2016-10-20 16:53] LABS: POINT-OF-CARE METER ID UU14188625
[2016-10-20 21:03] VITALS: BP 132/70
[2016-10-20 21:20] LABS: POINT-OF-CARE METER ID UU14188625
[2016-10-21] VITALS: BP 132/73
[2016-10-21 07:04] LABS: HEMATOCRIT 30.7 % (38.0-50.0); MCH 27.7 PG (29.0-34.0); MCHC 30.9 G/DL (30.0-36.0); MCV 89.5 FL (86-99); MEAN PLAT.VOLUME 11.2 uM^3 (9.0-12.4); NRBC (%) 0.5 /100 WBC (0-0); PLATELET COUNT 180 K/uL (156-360); RBC DIS.WIDTH-CV 20.3 % (11.8-14.6); RBC DIS.WIDTH-SD 66.6 % (39-53); RED BLOOD COUNT 3.43 M/uL (4.00-5.50); WHITE BLOOD COUNT 9.5 K/uL (4.1-10.2)
[2016-10-21 07:27] LABS: ANION GAP 9 MEQ/L (2-14); CHLORIDE 109 MEQ/L (99-109); GFR ESTIMATE (CALCULATED) > 59 mL/min/; GLUCOSE 312 mg/dL (70-99); POTASSIUM 4.2 MEQ/L (3.7-5.4); SAMPLE HEMOLYSIS CHECK 0; SAMPLE ICTERIC CHECK 0; SAMPLE LIPEMIA CHECK 0; SODIUM 141 MEQ/L (136-147); UREA NITROGEN (BUN) 30 mg/dL (9-23)
[2016-10-21 07:54] LABS: ANISOCYTOSIS 1+; ATYPICAL LYMPHOCYTE 3.8 %; BAND NEUTROPHILS 2.8 % (0-8.0); BURR CELLS 1+; EOSINOPHIL ABS CT 0; INSTRUMENT ABS NEUTROPHIL CT 5.6 K/uL; LYMPHOCYTES 12.4 % (15.0-45.0); METAMYELOCYTES 1.9 %; MICROCYTOSIS 1+; OVALOCYTES 1+; PLAT.SUFFICIENCY ADEQUATE; POIKILOCYTOSIS 2+; SEG.NEUTROPHILS 70.5 % (46.0-76.0); SMUDGE CELLS 29.5; TEAR DROP CELLS 1+
[2016-10-21 07:57] LABS: POINT-OF-CARE METER ID UU14174225
[2016-10-21 08:07] VITALS: BP 130/71
[2016-10-21] MEDS ORDERED: COREG3.125 M1 PO (09:56)
[2016-10-21] MEDS ORDERED: PREDNISONE10 MG PO (09:56)
[2016-10-21] MEDS ORDERED: BENZONATATE100 MG PO (09:56)
[2016-10-21 11:54] LABS: POINT-OF-CARE METER ID UU14174225
[2016-10-21] MEDS ORDERED: FUROSEMIDE20 MG PO (15:41)
[2016-10-21] MEDS ORDERED: ADVAIR HFA120 INHALA IH (15:41)
[2016-10-21] MEDS ORDERED: SPIRIVA1 INHALATI IH (15:41)
[2016-10-21] MEDS ORDERED: SYMBICORT60 INHALA1 IH (15:47)
[2016-10-25] MEDS ORDERED: PREDNISONE5 MG PO (14:07)
[2016-10-29] MEDS ORDERED: FUROSEMIDE20 MG PO (11:48)
[2016-10-29] MEDS ORDERED: AUGMENTIN500 MG PO (11:53)
== END 2016-10-21 16:36 | disposition home health service (06) | DRG 871 ==
LOC: EME 19:17 → EDOF 22:18 → 5SOUTH 22:18 → 4EAST 22:18 → 5SOUTH 10-14 07:52
PROVIDERS: Emergency Medicine; Family Medicine; Hospitalist; Internal Medicine; Nurse Practitioner Adult Health; Physician Assistant Medical
DX: A41.9 Sepsis, unspecified organism (principal); J96.01 Acute respiratory failure with hypoxia; J69.0 Pneumonitis due to inhalation of food and vomit; J15.212 Pneumonia due to Methicillin resistant Staphylococcus aureus; J44.1 Chronic obstructive pulmonary disease with (acute) exacerbation; I50.22 Chronic systolic (congestive) heart failure; R13.10 Dysphagia, unspecified; E11.42 Type 2 diabetes mellitus with diabetic polyneuropathy; E11.22 Type 2 diabetes mellitus with diabetic chronic kidney disease; E11.65 Type 2 diabetes mellitus with hyperglycemia; J10.1 Influenza due to other identified influenza virus with other respiratory manifestations; I73.9 Peripheral vascular disease, unspecified; Y95 Nosocomial condition; I25.10 Atherosclerotic heart disease of native coronary artery without angina pectoris; D63.1 Anemia in chronic kidney disease; G40.909 Epilepsy, unspecified, not intractable, without status epilepticus; E66.9 Obesity, unspecified; I12.9 Hypertensive chronic kidney disease with stage 1 through stage 4 chronic kidney disease, or unspecified chronic kidney disease; N18.2 Chronic kidney disease, stage 2 (mild); H54.40 Blindness, one eye, unspecified eye; Z89.411 Acquired absence of right great toe; I25.2 Old myocardial infarction; Z95.1 Presence of aortocoronary bypass graft; Z86.73 Personal history of transient ischemic attack (TIA), and cerebral infarction without residual deficits
CPT/HCPCS: 36600; 71010; 71020; 71275; 74230; 80048; 80048 91; 80076; 80202; 82803; 82948; 83605; 85025; 85027; 85379; 87040; 87070; 87106; 87205; 87449; 87502; 92526 GN; 92610 GN; 92611 GN; 93005; 94640; 94640 76; 94644; 94760; 94799; 97530 GO; 97530 GP; 99202; 99281; 99285; J0456; J0696; J1644; J1815; J2543; J2920; J2930; J3370; J7030; J7050; J7512; J7608

== ENCOUNTER 2017-01-05 19:29 | Inpatient (IN) | payer OTHER ==
[~2017-01-05] VITALS: Ht 180.3 cm; Wt 75.0 kg
[~2017-01-05 19:29] MED LIST changes: +AUGMENTIN500 MG PO; +BENZONATATE100 MG PO; +DELTASONE20 M1 PO; +FUROSEMIDE20 MG PO; +SYMBICORT60 INHALA1 IH
[2017-01-05 19:59] LABS: MCH 29.1 PG (29.0-34.0); MCHC 31.1 G/DL (30.0-36.0); MCV 93.3 FL (86-99); MEAN PLAT.VOLUME 10.7 uM^3 (9.0-12.4); PLATELET COUNT 157 K/uL (156-360); RBC DIS.WIDTH-CV 18.3 % (11.8-14.6); RBC DIS.WIDTH-SD 62.6 % (39-53); RED BLOOD COUNT 3.75 M/uL (4.00-5.50); WHITE BLOOD COUNT 7.2 K/uL (4.1-10.2)
[2017-01-05 20:11] LABS: CHLORIDE 106 mEq/L (99-109); POTASSIUM 4.1 mEq/L (3.7-5.4); SODIUM 139 mEq/L (136-147)
[2017-01-05 20:12] LABS: GLUCOSE 179 mg/dL (70-99)
[2017-01-05 20:14] LABS: ANION GAP 10 MEQ/L (2-14)
[2017-01-05 20:16] LABS: GFR ESTIMATE (CALCULATED) > 59 mL/min/
[2017-01-05 20:17] LABS: UREA NITROGEN (BUN) 19 mg/dL (9-23)
[2017-01-05 20:24] LABS: TROP-I INTERPRETATION NEGATIVE
[2017-01-05 22:53] LABS: ADD MIUA? NO; BILIRUBIN NEGATIVE; BLOOD NEGATIVE; COLOR YELLOW ((YELLOW)); GLUCOSE (STRIP) NEGATIVE; KETONES NEGATIVE; LEUKOCYTES NEGATIVE; NITRITE NEGATIVE; PROTEIN (STRIP) 30; SPECIFIC GRAVITY 1.017 (1.000-1.030); UROBILINOGEN 0.2 MG/DL (0.2-1.0)
[2017-01-06] MEDS ORDERED: NOVOLOG PE100 UNITS/ SC (00:28)
[2017-01-06 00:52] LABS: EOSINOPHIL (%) 1.9 % (0-5); EOSINOPHIL COUNT 0.1 K/uL (0-0.3); HEMATOCRIT 35.5 % (38.0-50.0); IMMATURE GRANULOCYTE (%) 0.5 % (0.0-0.7); LYMPHOCYTE COUNT 2.4 K/uL (1.0-2.8); MCHC 31.3 G/DL (30.0-36.0); MCV 92.7 FL (86-99); MONOCYTE (%) 10.7 % (3-12); MONOCYTE COUNT 0.8 K/uL (0-0.8); PLATELET COUNT 154 K/uL (156-360); RBC DIS.WIDTH-CV 18.5 % (11.8-14.6); RBC DIS.WIDTH-SD 62.4 % (39-53); RED BLOOD COUNT 3.83 M/uL (4.00-5.50); WHITE BLOOD COUNT 7.5 K/uL (4.1-10.2)
[2017-01-06 08:10] LABS: POINT-OF-CARE METER ID UU13113702
[2017-01-06 11:19] LABS: POINT-OF-CARE METER ID UU13113702
[2017-01-06 15:00] VITALS: BP 140/82
[2017-01-06 17:30] LABS: POINT-OF-CARE METER ID UU13113725
[2017-01-06 23:12] LABS: POINT-OF-CARE METER ID UU13113725
[2017-01-06 23:17] VITALS: BP 121/72
[2017-01-07 06:28] LABS: POINT-OF-CARE METER ID UU13113725
[2017-01-07 06:58] VITALS: BP 152/85
[2017-01-07 11:02] LABS: POINT-OF-CARE METER ID UU13113725
[2017-01-07 15:34] VITALS: BP 135/70
[2017-01-07 16:27] LABS: POINT-OF-CARE METER ID UU13113725
[2017-01-07 21:13] VITALS: BP 116/60
[2017-01-07 21:16] LABS: POINT-OF-CARE METER ID UU13113725
[2017-01-07 23:33] VITALS: BP 116/64
[2017-01-08 05:58] LABS: POINT-OF-CARE METER ID UU13113725
[2017-01-08 06:29] LABS: HEMATOCRIT 34.3 % (38.0-50.0); MCH 29.8 PG (29.0-34.0); MCHC 31.5 G/DL (30.0-36.0); MCV 94.5 FL (86-99); PLATELET COUNT 164 K/uL (156-360); RBC DIS.WIDTH-CV 18.5 % (11.8-14.6); RBC DIS.WIDTH-SD 63.9 % (39-53); RED BLOOD COUNT 3.63 M/uL (4.00-5.50); WHITE BLOOD COUNT 6.4 K/uL (4.1-10.2)
[2017-01-08 06:59] LABS: ANION GAP 9 MEQ/L (2-14); CHLORIDE 107 MEQ/L (99-109); GFR ESTIMATE (CALCULATED) > 59 mL/min/; POTASSIUM 4.1 MEQ/L (3.7-5.4); SAMPLE HEMOLYSIS CHECK 0; SAMPLE ICTERIC CHECK 0; SAMPLE LIPEMIA CHECK 0; SODIUM 139 MEQ/L (136-147); UREA NITROGEN (BUN) 25 mg/dL (9-23)
[2017-01-08 07:06] VITALS: BP 103/66
[2017-01-08 07:12] LABS: GLUCOSE 118 mg/dL (70-99)
[2017-01-08 11:25] LABS: POINT-OF-CARE METER ID UU13113725
[2017-01-08 15:24] VITALS: BP 103/52
== END 2017-01-08 16:13 | disposition home health service (06) | DRG 190 ==
LOC: EXP 19:29 → EME 19:29 → EDOF 23:55 → 5EAST 23:55
PROVIDERS: Hospitalist; Internal Medicine; Physician Assistant; Physician Assistant Medical
DX: J44.1 Chronic obstructive pulmonary disease with (acute) exacerbation (principal); I50.21 Acute systolic (congestive) heart failure; L02.612 Cutaneous abscess of left foot; F33.9 Major depressive disorder, recurrent, unspecified; I25.10 Atherosclerotic heart disease of native coronary artery without angina pectoris; L89.620 Pressure ulcer of left heel, unstageable; L89.610 Pressure ulcer of right heel, unstageable; I13.0 Hypertensive heart and chronic kidney disease with heart failure and stage 1 through stage 4 chronic kidney disease, or unspecified chronic kidney disease; I45.2 Bifascicular block; I25.2 Old myocardial infarction; Z79.4 Long term (current) use of insulin; E11.42 Type 2 diabetes mellitus with diabetic polyneuropathy; E11.65 Type 2 diabetes mellitus with hyperglycemia; I48.2 Chronic atrial fibrillation; E78.5 Hyperlipidemia, unspecified; I12.9 Hypertensive chronic kidney disease with stage 1 through stage 4 chronic kidney disease, or unspecified chronic kidney disease; I73.9 Peripheral vascular disease, unspecified; H54.41 Blindness, right eye, normal vision left eye; Z87.891 Personal history of nicotine dependence; M72.0 Palmar fascial fibromatosis [Dupuytren]; G89.29 Other chronic pain; Z95.5 Presence of coronary angioplasty implant and graft; Z89.412 Acquired absence of left great toe; Z90.01 Acquired absence of eye; Z82.3 Family history of stroke; Z80.42 Family history of malignant neoplasm of prostate; Z79.82 Long term (current) use of aspirin; N18.3 Chronic kidney disease, stage 3 (moderate); E11.22 Type 2 diabetes mellitus with diabetic chronic kidney disease; D63.1 Anemia in chronic kidney disease; R09.02 Hypoxemia; I69.391 Dysphagia following cerebral infarction
CPT/HCPCS: 71020; 80048; 81003; 82948; 84484; 85025; 85027; 93005; 94640; 94640 76; 94799; 99202; J0696; J1644; J1815; J2543; J7050; J7512; S0030

== ENCOUNTER 2017-01-17 11:55 | Inpatient (IN) | payer OTHER ==
[~2017-01-17] VITALS: Ht 180.3 cm; Wt 79.6 kg
[~2017-01-17 11:55] MED LIST changes: -XALATAN2.5 ML RIGHT EYE
[2017-01-17 13:48] LABS: HEMATOCRIT 34.5 % (38.0-50.0); MCH 28.8 PG (29.0-34.0); PLATELET COUNT 180 K/uL (156-360); RBC DIS.WIDTH-CV 17.4 % (11.8-14.6); RBC DIS.WIDTH-SD 59.7 % (39-53); RED BLOOD COUNT 3.71 M/uL (4.00-5.50); WHITE BLOOD COUNT 12.6 K/uL (4.1-10.2)
[2017-01-17 13:55] LABS: CHLORIDE 108 mEq/L (99-109); POTASSIUM 4.3 mEq/L (3.7-5.4); SODIUM 141 mEq/L (136-147)
[2017-01-17 13:56] LABS: GLUCOSE 135 mg/dL (70-99)
[2017-01-17 13:58] LABS: ANION GAP 10 MEQ/L (2-14)
[2017-01-17 14:00] LABS: GFR ESTIMATE (CALCULATED) > 59 mL/min/
[2017-01-17 14:01] LABS: UREA NITROGEN (BUN) 20 mg/dL (9-23)
[2017-01-17 14:08] LABS: TROP-I INTERPRETATION NEGATIVE
[2017-01-17 15:43] LABS: ADD MIUA? YES; BILIRUBIN NEGATIVE; BLOOD NEGATIVE; COLOR YELLOW ((YELLOW)); GLUCOSE (STRIP) 50; KETONES NEGATIVE; LEUKOCYTES TRACE; NITRITE NEGATIVE; PROTEIN (STRIP) 100; UROBILINOGEN 0.2 MG/DL (0.2-1.0)
[2017-01-17 15:50] LABS: BACTERIA NONE SEEN /HPF; EPITHELIAL CELLS RARE /HPF; MUCUS TRACE /LPF; RED BLOOD CELLS 0-5 /HPF (0-5); UCUL ADDED? NO; WHITE BLOOD CELLS 0-5 /HPF (0-5)
[2017-01-17] MEDS ORDERED: ATIVAN1 MG PO (16:35)
[2017-01-17] MEDS ORDERED: STIOLTO RESPIMAT4 GM IH (16:35)
[2017-01-17] MEDS ORDERED: FOLIC ACID0.8 M1 PO (16:36)
[2017-01-17] MEDS ORDERED: ERYTHROMYC1 APPLICAT RIGHT EYE (16:38)
[2017-01-17] MEDS ORDERED: SYMBICORT60 INHALA1 IH (16:46)
[2017-01-17] MEDS ORDERED: NOVOLOG PE100 UNITS/ SC ×4 (16:49→16:52)
[2017-01-17 17:10] VITALS: BP 107/69
[2017-01-17 20:16] VITALS: BP 102/65
[2017-01-17 23:34] VITALS: BP 123/67
[2017-01-18] VITALS (7 sets, daily range): BP systolic 109–135; BP diastolic 60–78
[2017-01-18 06:39] LABS: EOSINOPHIL (%) 0.8 % (0-5); EOSINOPHIL COUNT 0.1 K/uL (0-0.3); HEMATOCRIT 30.7 % (38.0-50.0); IMMATURE GRANULOCYTE (%) 0.4 % (0.0-0.7); INSTRUMENT ABS NEUTROPHIL CT 5.2 K/uL; LYMPHOCYTE COUNT 1.7 K/uL (1.0-2.8); MCH 29.4 PG (29.0-34.0); MCHC 30.9 G/DL (30.0-36.0); MONOCYTE (%) 8.2 % (3-12); MONOCYTE COUNT 0.6 K/uL (0-0.8); NEUTROPHIL (%) 68.3 % (45-76); NEUTROPHIL COUNT 5.2 K/uL (1.8-6.4); PLATELET COUNT 159 K/uL (156-360); RBC DIS.WIDTH-CV 17.3 % (11.8-14.6); RBC DIS.WIDTH-SD 61.1 % (39-53); RED BLOOD COUNT 3.23 M/uL (4.00-5.50); WHITE BLOOD COUNT 7.6 K/uL (4.1-10.2)
[2017-01-18 07:10] LABS: ANION GAP 9 MEQ/L (2-14); CHLORIDE 108 MEQ/L (99-109); GFR ESTIMATE (CALCULATED) > 59 mL/min/; POTASSIUM 4.1 MEQ/L (3.7-5.4); SAMPLE HEMOLYSIS CHECK 0; SAMPLE ICTERIC CHECK 0; SAMPLE LIPEMIA CHECK 0; SODIUM 144 MEQ/L (136-147); UREA NITROGEN (BUN) 22 mg/dL (9-23)
[2017-01-18 07:12] LABS: GLUCOSE 68 mg/dL (70-99)
[2017-01-18 12:22] LABS: POINT-OF-CARE METER ID UU14188625
[2017-01-18 17:15] LABS: POINT-OF-CARE METER ID UU14188625
[2017-01-18 21:03] LABS: POINT-OF-CARE METER ID UU14188625
[2017-01-19] VITALS (7 sets, daily range): BP systolic 114–131; BP diastolic 64–79
[2017-01-19 04:31] LABS: EOSINOPHIL (%) 1.9 % (0-5); EOSINOPHIL COUNT 0.2 K/uL (0-0.3); HEMATOCRIT 32.9 % (38.0-50.0); IMMATURE GRANULOCYTE (%) 0.4 % (0.0-0.7); INSTRUMENT ABS NEUTROPHIL CT 5.4 K/uL; LYMPHOCYTE COUNT 1.8 K/uL (1.0-2.8); MCH 28.9 PG (29.0-34.0); MCHC 31.3 G/DL (30.0-36.0); MCV 92.4 FL (86-99); MEAN PLAT.VOLUME 11.4 uM^3 (9.0-12.4); MONOCYTE COUNT 0.6 K/uL (0-0.8); NEUTROPHIL (%) 68.1 % (45-76); NEUTROPHIL COUNT 5.4 K/uL (1.8-6.4); PLATELET COUNT 175 K/uL (156-360); RBC DIS.WIDTH-CV 17.2 % (11.8-14.6); RBC DIS.WIDTH-SD 58.2 % (39-53); RED BLOOD COUNT 3.56 M/uL (4.00-5.50); WHITE BLOOD COUNT 7.9 K/uL (4.1-10.2)
[2017-01-19 04:45] LABS: CHLORIDE 107 mEq/L (99-109); POTASSIUM 3.7 mEq/L (3.7-5.4); SODIUM 143 mEq/L (136-147)
[2017-01-19 04:47] LABS: GLUCOSE 81 mg/dL (70-99)
[2017-01-19 04:48] LABS: ANION GAP 13 MEQ/L (2-14)
[2017-01-19 04:51] LABS: GFR ESTIMATE (CALCULATED) > 59 mL/min/; UREA NITROGEN (BUN) 22 mg/dL (9-23)
[2017-01-19 11:55] LABS: POINT-OF-CARE METER ID UU14174225
[2017-01-20 04:11] VITALS: BP 136/81
[2017-01-20 08:03] LABS: POINT-OF-CARE METER ID UU14174225
[2017-01-20 08:15] VITALS: BP 115/66
[2017-01-20 09:01] LABS: ANION GAP 9 MEQ/L (2-14); CHLORIDE 105 MEQ/L (99-109); GFR ESTIMATE (CALCULATED) > 59 mL/min/; GLUCOSE 89 mg/dL (70-99); POTASSIUM 3.9 MEQ/L (3.7-5.4); SAMPLE HEMOLYSIS CHECK 0; SAMPLE ICTERIC CHECK 0; SAMPLE LIPEMIA CHECK 0; SODIUM 142 MEQ/L (136-147); UREA NITROGEN (BUN) 26 mg/dL (9-23)
[2017-01-20] MEDS ORDERED: AUGMENTIN875 MG PO (09:54)
[2017-01-20] MEDS ORDERED: FUROSEMIDE40 MG PO ×2 (09:55→11:24)
[2017-01-20 10:50] VITALS: BP 111/66
[2017-01-20] MEDS ORDERED: NOVOLOG PE100 UNITS/ SC (11:23)
[2017-01-20] MEDS ORDERED: TRESIBA FL100 UNIT/1 SC (11:23)
== END 2017-01-20 15:46 | disposition home health service (06) | DRG 871 ==
LOC: EME 11:55 → 5SOUTH 15:39 → EDOF 15:39 → 5SOUTH 16:57
PROVIDERS: Emergency Medicine; Internal Medicine; Physician Assistant Medical
DX: A41.9 Sepsis, unspecified organism (principal); I50.23 Acute on chronic systolic (congestive) heart failure; J69.0 Pneumonitis due to inhalation of food and vomit; J96.20 Acute and chronic respiratory failure, unspecified whether with hypoxia or hypercapnia; E11.42 Type 2 diabetes mellitus with diabetic polyneuropathy; E11.22 Type 2 diabetes mellitus with diabetic chronic kidney disease; I25.10 Atherosclerotic heart disease of native coronary artery without angina pectoris; I48.2 Chronic atrial fibrillation; Z89.412 Acquired absence of left great toe; Z95.1 Presence of aortocoronary bypass graft; I69.351 Hemiplegia and hemiparesis following cerebral infarction affecting right dominant side; Z87.01 Personal history of pneumonia (recurrent); E78.5 Hyperlipidemia, unspecified; I25.2 Old myocardial infarction; I13.0 Hypertensive heart and chronic kidney disease with heart failure and stage 1 through stage 4 chronic kidney disease, or unspecified chronic kidney disease; I25.5 Ischemic cardiomyopathy; D63.8 Anemia in other chronic diseases classified elsewhere; I34.0 Nonrheumatic mitral (valve) insufficiency; Z87.891 Personal history of nicotine dependence; Z99.81 Dependence on supplemental oxygen; H54.41 Blindness, right eye, normal vision left eye; R13.10 Dysphagia, unspecified; I69.391 Dysphagia following cerebral infarction; N18.9 Chronic kidney disease, unspecified; J44.9 Chronic obstructive pulmonary disease, unspecified
CPT/HCPCS: 71020; 71250; 80048; 80202; 81003; 82948; 83605; 83880; 84484; 85025; 85027; 87040; 87070; 87205; 93005; 94640; 94640 76; 94799; 99202; 99281; 99285; J0692; J1650; J1815; J1940; J3370; J7030; J7050; J7512

== ENCOUNTER 2017-02-26 18:13 | Observation (INO) | payer OTHER ==
[~2017-02-26] VITALS: Ht 180.3 cm; Wt 77.7 kg
[~2017-02-26 18:13] MED LIST changes: +AUGMENTIN875 MG PO; +FOLIC ACID0.8 M1 PO; +STIOLTO RESPIMAT4 GM IH
[2017-02-26 18:45] LABS: HEMATOCRIT 37.4 % (38.0-50.0); MCH 28.7 PG (29.0-34.0); MCHC 32.1 G/DL (30.0-36.0); MCV 89.5 FL (86-99); MEAN PLAT.VOLUME 11.6 uM^3 (9.0-12.4); PLATELET COUNT 152 K/uL (156-360); RBC DIS.WIDTH-CV 15.9 % (11.8-14.6); RBC DIS.WIDTH-SD 52.5 % (39-53); RED BLOOD COUNT 4.18 M/uL (4.00-5.50); WHITE BLOOD COUNT 14.1 K/uL (4.1-10.2)
[2017-02-26 18:54] LABS: CHLORIDE 104 mEq/L (99-109); POTASSIUM 4.4 mEq/L (3.7-5.4); SODIUM 142 mEq/L (136-147)
[2017-02-26 18:56] LABS: GLUCOSE 235 mg/dL (70-99)
[2017-02-26 18:57] LABS: ANION GAP 15 MEQ/L (2-14)
[2017-02-26 18:59] LABS: GFR ESTIMATE (CALCULATED) > 59 mL/min/
[2017-02-26 19:00] LABS: UREA NITROGEN (BUN) 26 mg/dL (9-23)
[2017-02-26 19:06] LABS: TROP-I INTERPRETATION NEGATIVE; TROPONIN-I 0.13 ng/mL (0.0-0.30)
[2017-02-26] MEDS ORDERED: LISINOPRIL5 MG PO (20:04)
[2017-02-26 21:12] LABS: DIGOXIN 0.6 ng/mL (0.8-2.0)
[2017-02-26] MEDS ORDERED: TRESIBA FL100 UNIT/1 SC (22:54)
[2017-02-26] MEDS ORDERED: NOVOLOG PE100 UNITS/ SC ×4 (22:56→23:08)
[2017-02-26] MEDS ORDERED: ERYTHROMYC1 APPLICAT RIGHT EYE (23:02)
[2017-02-26] MEDS ORDERED: COREG3.125 M1 PO (23:04)
[2017-02-26 23:57] LABS: POINT-OF-CARE METER ID UU13113702
[2017-02-27 00:54] VITALS: BP 121/95
[2017-02-27 02:31] LABS: METH RESISTANT S AUREUS PCR NEGATIVE (NEGATIVE)
[2017-02-27 02:36] LABS: PROBE CHECK PASS; SPECIMEN PROCESSING CONTROL PASS
[2017-02-27 04:12] VITALS: BP 121/66
[2017-02-27 05:45] LABS: EOSINOPHIL (%) 0.7 % (0-5); EOSINOPHIL COUNT 0.1 K/uL (0-0.3); IMMATURE GRANULOCYTE (%) 0.5 % (0.0-0.7); IMMATURE GRANULOCYTE COUNT 0.1 K/uL; INSTRUMENT ABS NEUTROPHIL CT 11.2 K/uL; LYMPHOCYTE COUNT 2.5 K/uL (1.0-2.8); MCH 29.7 PG (29.0-34.0); MCHC 32.6 G/DL (30.0-36.0); MCV 90.9 FL (86-99); MEAN PLAT.VOLUME 12.1 uM^3 (9.0-12.4); MONOCYTE (%) 6.2 % (3-12); MONOCYTE COUNT 0.9 K/uL (0-0.8); NEUTROPHIL (%) 75.5 % (45-76); NEUTROPHIL COUNT 11.2 K/uL (1.8-6.4); PLATELET COUNT 131 K/uL (156-360); RBC DIS.WIDTH-CV 16.3 % (11.8-14.6); RBC DIS.WIDTH-SD 54.6 % (39-53); RED BLOOD COUNT 3.74 M/uL (4.00-5.50); WHITE BLOOD COUNT 14.9 K/uL (4.1-10.2)
[2017-02-27 06:42] LABS: POINT-OF-CARE METER ID UU13113831
[2017-02-27 06:56] LABS: ALKALINE PHOSPHATASE 68 IU/L (3-129); ANION GAP 9 MEQ/L (2-14); CHLORIDE 101 MEQ/L (99-109); GFR ESTIMATE (CALCULATED) > 59 mL/min/; POTASSIUM 3.9 MEQ/L (3.7-5.4); SAMPLE HEMOLYSIS CHECK 0; SAMPLE ICTERIC CHECK 0; SAMPLE LIPEMIA CHECK 0; SODIUM 140 MEQ/L (136-147); TOTAL BILIRUBIN 0.5 MG/DL (0.0-1.0); UREA NITROGEN (BUN) 21 mg/dL (9-23)
[2017-02-27 06:58] VITALS: BP 112/64
[2017-02-27 07:02] LABS: GLUCOSE 120 mg/dL (70-99)
[2017-02-27] MEDS ORDERED: AUGMENTIN500 MG PO (11:35)
[2017-02-27 12:54] LABS: TROP-I INTERPRETATION NEGATIVE
== END 2017-02-27 12:55 | disposition home or self-care (01) ==
LOC: EME 18:13 → EDOF 22:49 → 5WEST 02-27 00:41
PROVIDERS: Hospitalist; Physician Assistant Medical
DX: J44.0 Chronic obstructive pulmonary disease with (acute) lower respiratory infection (principal); J18.9 Pneumonia, unspecified organism; F32.9 Major depressive disorder, single episode, unspecified; I25.2 Old myocardial infarction; Z95.1 Presence of aortocoronary bypass graft; Z86.73 Personal history of transient ischemic attack (TIA), and cerebral infarction without residual deficits; Z79.82 Long term (current) use of aspirin; Z87.891 Personal history of nicotine dependence; I25.10 Atherosclerotic heart disease of native coronary artery without angina pectoris; I48.91 Unspecified atrial fibrillation; I13.0 Hypertensive heart and chronic kidney disease with heart failure and stage 1 through stage 4 chronic kidney disease, or unspecified chronic kidney disease; I50.22 Chronic systolic (congestive) heart failure; N18.2 Chronic kidney disease, stage 2 (mild); E11.22 Type 2 diabetes mellitus with diabetic chronic kidney disease; Z79.4 Long term (current) use of insulin; I25.5 Ischemic cardiomyopathy; E78.5 Hyperlipidemia, unspecified; E11.42 Type 2 diabetes mellitus with diabetic polyneuropathy; I73.9 Peripheral vascular disease, unspecified
CPT/HCPCS: 71020; 71250; 80048; 80053; 80162; 80162 GA; 80306 90; 81003; 82948; 84484; 85025; 85027; 87040; 87070; 87205; 87449; 87641; 93005; 94640; 94760; 94799; 99202; 99281; 99285; G0378; G0480; J0295; J1650; J7030; J7050; J7512

== ENCOUNTER 2017-03-30 09:24 | Inpatient (IN) | payer OTHER ==
[~2017-03-30] VITALS: Ht 180.3 cm; Wt 82.5 kg
[2017-03-30 10:58] LABS: EOSINOPHIL (%) 1.2 % (0-5); EOSINOPHIL COUNT 0.2 K/uL (0-0.3); HEMATOCRIT 43.6 % (38.0-50.0); IMMATURE GRANULOCYTE (%) 0.3 % (0.0-0.7); IMMATURE GRANULOCYTE COUNT 0.1 K/uL; LYMPHOCYTE COUNT 2.2 K/uL (1.0-2.8); MCH 28.8 PG (29.0-34.0); MCHC 31.7 G/DL (30.0-36.0); MCV 90.8 FL (86-99); MONOCYTE (%) 6.3 % (3-12); MONOCYTE COUNT 0.9 K/uL (0-0.8); NEUTROPHIL (%) 76.8 % (45-76); PLATELET COUNT 167 K/uL (156-360); RBC DIS.WIDTH-CV 17.1 % (11.8-14.6); RBC DIS.WIDTH-SD 55.8 % (39-53); WHITE BLOOD COUNT 14.3 K/uL (4.1-10.2)
[2017-03-30 11:07] LABS: CHLORIDE 101 mEq/L (99-109); POTASSIUM 4.2 mEq/L (3.7-5.4); SODIUM 140 mEq/L (136-147)
[2017-03-30 11:09] LABS: GLUCOSE 123 mg/dL (70-99)
[2017-03-30 11:10] LABS: ANION GAP 15 MEQ/L (2-14)
[2017-03-30 11:13] LABS: GFR ESTIMATE (CALCULATED) > 59 mL/min/
[2017-03-30 11:14] LABS: UREA NITROGEN (BUN) 23 mg/dL (9-23)
[2017-03-30 11:19] LABS: TROP-I INTERPRETATION NEGATIVE
[2017-03-30 11:24] LABS: INTER. NORMALIZED RATIO 1.1; PROTHROMBIN TIME 11.8 SEC (10.2-12.9)
[2017-03-30 11:27] LABS: PTT 29.2 SEC (25-37)
[2017-03-30] MEDS ORDERED: FUROSEMIDE40 MG PO (13:06)
[2017-03-30] MEDS ORDERED: FENOFIBRATE54 M1 PO (13:06)
[2017-03-30 14:37] LABS: C-REACTIVE PROTEIN 23.7 MG/L (0-10)
[2017-03-30 16:57] LABS: TROP-I INTERPRETATION NEGATIVE; TROPONIN-I 0.12 ng/mL (0.0-0.30)
[2017-03-30 16:58] VITALS: BP 116/63
[2017-03-30 17:35] VITALS: BP 116/63
[2017-03-30 20:01] VITALS: BP 102/53
[2017-03-30 22:20] LABS: POINT-OF-CARE METER ID UU13113717; POINT-OF-CARE USER ID BHSKTD
[2017-03-30 23:38] VITALS: BP 130/67
[2017-03-31 00:18] LABS: TROP-I INTERPRETATION NEGATIVE; TROPONIN-I 0.06 ng/mL (0.0-0.30)
[2017-03-31 03:35] VITALS: BP 125/67
[2017-03-31 06:35] LABS: EOSINOPHIL (%) 0 % (0-5); HEMATOCRIT 33.5 % (38.0-50.0); IMMATURE GRANULOCYTE (%) 0.4 % (0.0-0.7); INSTRUMENT ABS NEUTROPHIL CT 6.6 K/uL; MCH 28.4 PG (29.0-34.0); MCHC 31.3 G/DL (30.0-36.0); MCV 90.5 FL (86-99); MEAN PLAT.VOLUME 11.5 uM^3 (9.0-12.4); MONOCYTE (%) 5.2 % (3-12); MONOCYTE COUNT 0.4 K/uL (0-0.8); NEUTROPHIL (%) 81.5 % (45-76); NEUTROPHIL COUNT 6.6 K/uL (1.8-6.4); PLATELET COUNT 136 K/uL (156-360); RBC DIS.WIDTH-CV 16.9 % (11.8-14.6); RBC DIS.WIDTH-SD 56.2 % (39-53); WHITE BLOOD COUNT 8.1 K/uL (4.1-10.2)
[2017-03-31 06:47] LABS: ANION GAP 12 MEQ/L (2-14); CHLORIDE 104 MEQ/L (99-109); GFR ESTIMATE (CALCULATED) 53 mL/min/; POTASSIUM 4.3 MEQ/L (3.7-5.4); SAMPLE HEMOLYSIS CHECK 0; SAMPLE ICTERIC CHECK 0; SAMPLE LIPEMIA CHECK 0; SODIUM 139 MEQ/L (136-147); UREA NITROGEN (BUN) 31 mg/dL (9-23)
[2017-03-31 06:49] LABS: GLUCOSE 240 mg/dL (70-99)
[2017-03-31 08:05] VITALS: BP 111/67
[2017-03-31 10:39] LABS: POINT-OF-CARE METER ID UU14188625
[2017-03-31 10:39] LABS: POINT-OF-CARE METER ID UU13113717; POINT-OF-CARE USER ID BHSKTD
[2017-03-31 11:30] VITALS: BP 96/60
[2017-03-31 15:43] VITALS: BP 120/67
[2017-03-31 17:33] LABS: POINT-OF-CARE METER ID UU14174225
[2017-03-31 20:00] VITALS: BP 110/68
[2017-03-31 21:23] LABS: POINT-OF-CARE METER ID UU14188625
[2017-04-01] VITALS (7 sets, daily range): BP systolic 95–148; BP diastolic 55–79
[2017-04-01 03:23] LABS: EOSINOPHIL (%) 0.1 % (0-5); HEMATOCRIT 32.5 % (38.0-50.0); IMMATURE GRANULOCYTE (%) 0.3 % (0.0-0.7); LYMPHOCYTE COUNT 1.5 K/uL (1.0-2.8); MCH 28.5 PG (29.0-34.0); MEAN PLAT.VOLUME 11.1 uM^3 (9.0-12.4); MONOCYTE (%) 8.2 % (3-12); MONOCYTE COUNT 0.8 K/uL (0-0.8); NEUTROPHIL (%) 75.3 % (45-76); PLATELET COUNT 136 K/uL (156-360); RBC DIS.WIDTH-CV 16.9 % (11.8-14.6); RBC DIS.WIDTH-SD 54.7 % (39-53); RED BLOOD COUNT 3.65 M/uL (4.00-5.50); WHITE BLOOD COUNT 9.3 K/uL (4.1-10.2)
[2017-04-01 03:34] LABS: CHLORIDE 108 mEq/L (99-109); POTASSIUM 3.9 mEq/L (3.7-5.4); SODIUM 142 mEq/L (136-147)
[2017-04-01 03:37] LABS: ANION GAP 11 MEQ/L (2-14)
[2017-04-01 03:39] LABS: GFR ESTIMATE (CALCULATED) 58 mL/min/
[2017-04-01 03:40] LABS: UREA NITROGEN (BUN) 32 mg/dL (9-23)
[2017-04-01 03:41] LABS: GLUCOSE 99 mg/dL (70-99)
[2017-04-01 08:01] LABS: POINT-OF-CARE METER ID UU14188625
[2017-04-01 21:38] LABS: POINT-OF-CARE METER ID UU14188625
[2017-04-01 23:56] LABS: HEMATOCRIT 30.7 % (38.0-50.0); MCH 28.8 PG (29.0-34.0); MCHC 32.2 G/DL (30.0-36.0); MCV 89.2 FL (86-99); MEAN PLAT.VOLUME 11.4 uM^3 (9.0-12.4); PLATELET COUNT 117 K/uL (156-360); RBC DIS.WIDTH-CV 17.2 % (11.8-14.6); RBC DIS.WIDTH-SD 56.1 % (39-53); RED BLOOD COUNT 3.44 M/uL (4.00-5.50)
[2017-04-02] VITALS (23 sets, daily range): BP systolic 93–142; BP diastolic 55–81
[2017-04-02 00:06] LABS: CHLORIDE 108 mEq/L (99-109); POTASSIUM 4.5 mEq/L (3.7-5.4); SODIUM 138 mEq/L (136-147)
[2017-04-02 00:09] LABS: ANION GAP 9 MEQ/L (2-14)
[2017-04-02 00:10] LABS: TOTAL BILIRUBIN 0.5 mg/dL (0.0-1.0)
[2017-04-02 00:12] LABS: ALKALINE PHOSPHATASE 55 IU/L (3-129); GFR ESTIMATE (CALCULATED) 58 mL/min/
[2017-04-02 00:13] LABS: UREA NITROGEN (BUN) 23 mg/dL (9-23)
[2017-04-02 00:15] LABS: CREATINE KINASE 70 IU/L (1-294)
[2017-04-02 00:18] LABS: TROP-I INTERPRETATION NEGATIVE; TROPONIN-I 0.16 ng/mL (0.0-0.30)
[2017-04-02 00:19] LABS: GLUCOSE 204 mg/dL (70-99)
[2017-04-02 00:21] LABS: DIGOXIN 0.7 ng/mL (0.8-2.0)
[2017-04-02 01:47] LABS: METH RESISTANT S AUREUS PCR NEGATIVE (NEGATIVE)
[2017-04-02 01:51] LABS: PROBE CHECK PASS; SPECIMEN PROCESSING CONTROL PASS
[2017-04-02 02:27] LABS: D-DIMER LATEX NEGATIVE
[2017-04-02 06:50] LABS: TROP-I INTERPRETATION NEGATIVE; TROPONIN-I 0.23 ng/mL (0.0-0.30)
[2017-04-02 06:59] LABS: ANION GAP 7 MEQ/L (2-14); CHLORIDE 107 MEQ/L (99-109); GFR ESTIMATE (CALCULATED) > 59 mL/min/; SAMPLE HEMOLYSIS CHECK 0; SAMPLE ICTERIC CHECK 0; SAMPLE LIPEMIA CHECK 0; SODIUM 139 MEQ/L (136-147); UREA NITROGEN (BUN) 24 mg/dL (9-23)
[2017-04-02 07:08] LABS: GLUCOSE 85 mg/dL (70-99)
[2017-04-02 09:13] LABS: POINT-OF-CARE METER ID UU14162636
[2017-04-02 12:20] LABS: POINT-OF-CARE METER ID UU14162636
[2017-04-02 16:08] LABS: POINT-OF-CARE METER ID UU14162636
[2017-04-02 17:39] LABS: POINT-OF-CARE METER ID UU14174217
[2017-04-03] VITALS (19 sets, daily range): BP systolic 92–121; BP diastolic 50–89
[2017-04-03 07:25] LABS: POINT-OF-CARE METER ID UU14174217
[2017-04-03 08:18] LABS: EOSINOPHIL (%) 1.3 % (0-5); EOSINOPHIL COUNT 0.1 K/uL (0-0.3); IMMATURE GRANULOCYTE (%) 0.4 % (0.0-0.7); INSTRUMENT ABS NEUTROPHIL CT 7.3 K/uL; LYMPHOCYTE COUNT 1.7 K/uL (1.0-2.8); MCH 28.7 PG (29.0-34.0); MCHC 31.7 G/DL (30.0-36.0); MCV 90.6 FL (86-99); MEAN PLAT.VOLUME 12.1 uM^3 (9.0-12.4); MONOCYTE (%) 7.1 % (3-12); MONOCYTE COUNT 0.7 K/uL (0-0.8); NEUTROPHIL (%) 73.9 % (45-76); NEUTROPHIL COUNT 7.3 K/uL (1.8-6.4); PLATELET COUNT 125 K/uL (156-360); RBC DIS.WIDTH-CV 17.4 % (11.8-14.6); RBC DIS.WIDTH-SD 58.8 % (39-53); RED BLOOD COUNT 3.31 M/uL (4.00-5.50); WHITE BLOOD COUNT 9.9 K/uL (4.1-10.2)
[2017-04-03 08:48] LABS: ANION GAP 8 MEQ/L (2-14); CHLORIDE 108 MEQ/L (99-109); GFR ESTIMATE (CALCULATED) > 59 mL/min/; GLUCOSE 124 mg/dL (70-99); MAGNESIUM 1.8 mg/dl (1.3-2.7); POTASSIUM 4.4 MEQ/L (3.7-5.4); SAMPLE HEMOLYSIS CHECK 0; SAMPLE ICTERIC CHECK 0; SAMPLE LIPEMIA CHECK 0; SODIUM 141 MEQ/L (136-147); UREA NITROGEN (BUN) 22 mg/dL (9-23)
[2017-04-03 12:10] LABS: POINT-OF-CARE METER ID UU14174217
[2017-04-03 17:06] LABS: POINT-OF-CARE METER ID UU14174217; POINT-OF-CARE USER ID 606021424
[2017-04-04] VITALS (12 sets, daily range): BP systolic 111–138; BP diastolic 61–82
[2017-04-04 00:27] LABS: POINT-OF-CARE METER ID UU14174217; POINT-OF-CARE USER ID PHATLC
[2017-04-04 07:51] LABS: POINT-OF-CARE METER ID UU14162636
[2017-04-04 12:29] LABS: POINT-OF-CARE METER ID UU14162636
[2017-04-04 16:44] LABS: POINT-OF-CARE METER ID UU14162636
[2017-04-04 21:40] LABS: POINT-OF-CARE METER ID UU13113731; POINT-OF-CARE USER ID PHATLC
[2017-04-05] VITALS (20 sets, daily range): BP systolic 99–147; BP diastolic 50–78
[2017-04-05 07:27] LABS: HEMATOCRIT 28.1 % (38.0-50.0); MCH 28.2 PG (29.0-34.0); MCHC 31.3 G/DL (30.0-36.0); MCV 90.1 FL (86-99); MEAN PLAT.VOLUME 10.6 uM^3 (9.0-12.4); PLATELET COUNT 117 K/uL (156-360); RBC DIS.WIDTH-CV 17.3 % (11.8-14.6); RBC DIS.WIDTH-SD 57.8 % (39-53); RED BLOOD COUNT 3.12 M/uL (4.00-5.50); WHITE BLOOD COUNT 9.1 K/uL (4.1-10.2)
[2017-04-05 07:56] LABS: ANION GAP 6 MEQ/L (2-14); CHLORIDE 107 MEQ/L (99-109); GFR ESTIMATE (CALCULATED) 58 mL/min/; GLUCOSE 161 mg/dL (70-99); POTASSIUM 4.3 MEQ/L (3.7-5.4); SAMPLE HEMOLYSIS CHECK 0; SAMPLE ICTERIC CHECK 0; SAMPLE LIPEMIA CHECK 0; SODIUM 138 MEQ/L (136-147); UREA NITROGEN (BUN) 21 mg/dL (9-23)
[2017-04-05 12:02] LABS: POINT-OF-CARE METER ID UU14162636
[2017-04-05 16:50] LABS: POINT-OF-CARE METER ID UU13113748
[2017-04-05 20:27] LABS: BASE EXCESS -0.5 mEq/L (-3 to +3); BICARBONATE 24.2 mEq/L (22-26); CARBOXY HGB 1.9 % (0-5); COMMENTS - BLOOD GASES C+A+; DEVICE NC; METHEMOGLOBIN 1.7 % (0-1.5); O2 FLOW 2 L/MIN; PCO2 39 mm Hg (35-45); PO2 81 mm Hg (80-100); SITE RR
[2017-04-05 20:49] LABS: HEMATOCRIT 25.7 % (38.0-50.0); MCH 28.4 PG (29.0-34.0); MCHC 31.5 G/DL (30.0-36.0); MCV 90.2 FL (86-99); MEAN PLAT.VOLUME 10.8 uM^3 (9.0-12.4); PLATELET COUNT 126 K/uL (156-360); RBC DIS.WIDTH-CV 17.2 % (11.8-14.6); RBC DIS.WIDTH-SD 57.7 % (39-53); RED BLOOD COUNT 2.85 M/uL (4.00-5.50); WHITE BLOOD COUNT 10.3 K/uL (4.1-10.2)
[2017-04-05 21:09] LABS: ANION GAP 6 MEQ/L (2-14); CHLORIDE 107 MEQ/L (99-109); GFR ESTIMATE (CALCULATED) > 59 mL/min/; GLUCOSE 188 mg/dL (70-99); POTASSIUM 4.2 MEQ/L (3.7-5.4); SAMPLE HEMOLYSIS CHECK 0; SAMPLE ICTERIC CHECK 0; SAMPLE LIPEMIA CHECK 0; SODIUM 137 MEQ/L (136-147); UREA NITROGEN (BUN) 26 mg/dL (9-23)
[2017-04-06] VITALS (8 sets, daily range): BP systolic 98–118; BP diastolic 58–92
[2017-04-06 02:20] LABS: POINT-OF-CARE METER ID UU13113781
[2017-04-06 03:12] LABS: POINT-OF-CARE METER ID UU13113781
[2017-04-06 08:20] LABS: POINT-OF-CARE METER ID UU13113781
[2017-04-06 11:15] LABS: POINT-OF-CARE METER ID UU13113781
[2017-04-06 15:58] LABS: POINT-OF-CARE METER ID UU13113781
[2017-04-07] VITALS (7 sets, daily range): BP systolic 109–132; BP diastolic 62–70
[2017-04-07 05:26] LABS: EOSINOPHIL (%) 1.9 % (0-5); EOSINOPHIL COUNT 0.1 K/uL (0-0.3); HEMATOCRIT 25.4 % (38.0-50.0); IMMATURE GRANULOCYTE (%) 0.8 % (0.0-0.7); IMMATURE GRANULOCYTE COUNT 0.1 K/uL; LYMPHOCYTE COUNT 1.6 K/uL (1.0-2.8); MCH 28.7 PG (29.0-34.0); MCHC 31.9 G/DL (30.0-36.0); MCV 90.1 FL (86-99); MEAN PLAT.VOLUME 11.6 uM^3 (9.0-12.4); MONOCYTE (%) 9.1 % (3-12); MONOCYTE COUNT 0.7 K/uL (0-0.8); NEUTROPHIL (%) 66.8 % (45-76); PLATELET COUNT 142 K/uL (156-360); RBC DIS.WIDTH-CV 17.5 % (11.8-14.6); RBC DIS.WIDTH-SD 58.4 % (39-53); RED BLOOD COUNT 2.82 M/uL (4.00-5.50); WHITE BLOOD COUNT 7.5 K/uL (4.1-10.2)
[2017-04-07 06:02] LABS: ANION GAP 10 MEQ/L (2-14); CHLORIDE 109 MEQ/L (99-109); GFR ESTIMATE (CALCULATED) > 59 mL/min/; GLUCOSE 142 mg/dL (70-99); POTASSIUM 4.3 MEQ/L (3.7-5.4); SAMPLE HEMOLYSIS CHECK 0; SAMPLE ICTERIC CHECK 0; SAMPLE LIPEMIA CHECK 0; SODIUM 141 MEQ/L (136-147); UREA NITROGEN (BUN) 23 mg/dL (9-23)
[2017-04-08 00:40] VITALS: BP 115/71
[2017-04-08 04:00] VITALS: BP 113/67
[2017-04-08 06:25] LABS: POINT-OF-CARE METER ID UU13113717; POINT-OF-CARE USER ID BHSKTD
[2017-04-08 08:13] LABS: POINT-OF-CARE METER ID UU13113717
[2017-04-08 08:35] VITALS: BP 117/72
[2017-04-08 11:53] LABS: POINT-OF-CARE METER ID UU13113717
[2017-04-08 12:07] LABS: BASE EXCESS 0.7 mEq/L (-3 to +3); BICARBONATE 25.4 mEq/L (22-26); CARBOXY HGB 1.8 % (0-5); COMMENTS - BLOOD GASES C+; METHEMOGLOBIN 1.6 % (0-1.5); PCO2 40 mm Hg (35-45); PO2 91 mm Hg (80-100); SITE RR; pH 7.41 (7.35-7.45)
[2017-04-08 12:08] LABS: DEVICE NC; O2 FLOW 2 L/MIN; TOTAL RESP RATE 20 resp/min
[2017-04-08 12:34] VITALS: BP 118/71
[2017-04-08 16:24] VITALS: BP 108/65
[2017-04-08 16:49] LABS: POINT-OF-CARE METER ID UU13113717
[2017-04-08 20:05] VITALS: BP 118/66
[2017-04-09 00:58] VITALS: BP 120/70
[2017-04-09 04:58] VITALS: BP 113/62
[2017-04-09 07:07] LABS: EOSINOPHIL (%) 1.3 % (0-5); EOSINOPHIL COUNT 0.1 K/uL (0-0.3); HEMATOCRIT 27.9 % (38.0-50.0); IMMATURE GRANULOCYTE (%) 1.1 % (0.0-0.7); IMMATURE GRANULOCYTE COUNT 0.1 K/uL; INSTRUMENT ABS NEUTROPHIL CT 6.2 K/uL; LYMPHOCYTE COUNT 1.5 K/uL (1.0-2.8); MCH 29.1 PG (29.0-34.0); MCHC 31.9 G/DL (30.0-36.0); MCV 91.2 FL (86-99); MEAN PLAT.VOLUME 11.1 uM^3 (9.0-12.4); MONOCYTE (%) 5.9 % (3-12); MONOCYTE COUNT 0.5 K/uL (0-0.8); NEUTROPHIL (%) 73.9 % (45-76); NEUTROPHIL COUNT 6.2 K/uL (1.8-6.4); NRBC (%) 0.2 /100 WBC (0-0); RBC DIS.WIDTH-CV 17.6 % (11.8-14.6); RBC DIS.WIDTH-SD 59.3 % (39-53); RED BLOOD COUNT 3.06 M/uL (4.00-5.50); WHITE BLOOD COUNT 8.4 K/uL (4.1-10.2)
[2017-04-09 07:08] LABS: PLATELET COUNT 192 K/uL (156-360)
[2017-04-09 07:23] VITALS: BP 102/53
[2017-04-09 07:23] LABS: ANION GAP 8 MEQ/L (2-14); CHLORIDE 109 MEQ/L (99-109); GFR ESTIMATE (CALCULATED) > 59 mL/min/; GLUCOSE 227 mg/dL (70-99); POTASSIUM 4.2 MEQ/L (3.7-5.4); SAMPLE HEMOLYSIS CHECK 0; SAMPLE ICTERIC CHECK 0; SAMPLE LIPEMIA CHECK 0; SODIUM 144 MEQ/L (136-147); UREA NITROGEN (BUN) 21 mg/dL (9-23)
[2017-04-09 15:38] VITALS: BP 118/71
[2017-04-09 15:41] LABS: POINT-OF-CARE METER ID UU13113717
== END 2017-04-09 17:38 | disposition home health service (06) | DRG 177 ==
LOC: EME 09:24 → EDOF 12:33 → 5SOUTH 12:33 → ENRESERV 12:37 → 5SOUTH 17:02 → ENRESERV 04-01 23:37 → 5SOUTH 04-01 23:49 → 4WEST 04-01 23:51 → ENRESERV 04-05 17:07 → 4EAST 04-05 18:20 → ENRESERV 04-07 10:13 → CANRESERV 04-07 10:13 → ENRESERV 04-07 16:13 → 5SOUTH 04-07 20:53
PROVIDERS: Emergency Medicine; Hospitalist; Internal Medicine; Specialist
DX: J69.0 Pneumonitis due to inhalation of food and vomit (principal); J44.0 Chronic obstructive pulmonary disease with (acute) lower respiratory infection; I25.5 Ischemic cardiomyopathy; I50.22 Chronic systolic (congestive) heart failure; I13.0 Hypertensive heart and chronic kidney disease with heart failure and stage 1 through stage 4 chronic kidney disease, or unspecified chronic kidney disease; L89.613 Pressure ulcer of right heel, stage 3; H54.41 Blindness, right eye, normal vision left eye; J44.1 Chronic obstructive pulmonary disease with (acute) exacerbation; E11.649 Type 2 diabetes mellitus with hypoglycemia without coma; E11.22 Type 2 diabetes mellitus with diabetic chronic kidney disease; I25.810 Atherosclerosis of coronary artery bypass graft(s) without angina pectoris; I63.9 Cerebral infarction, unspecified; G40.909 Epilepsy, unspecified, not intractable, without status epilepticus; I44.2 Atrioventricular block, complete; N18.9 Chronic kidney disease, unspecified; J96.11 Chronic respiratory failure with hypoxia; E78.5 Hyperlipidemia, unspecified; I69.351 Hemiplegia and hemiparesis following cerebral infarction affecting right dominant side; G47.30 Sleep apnea, unspecified; I42.0 Dilated cardiomyopathy; R47.02 Dysphasia; R13.10 Dysphagia, unspecified; I73.9 Peripheral vascular disease, unspecified; I46.9 Cardiac arrest, cause unspecified; F39 Unspecified mood [affective] disorder; Z95.1 Presence of aortocoronary bypass graft; Z99.81 Dependence on supplemental oxygen; Z87.891 Personal history of nicotine dependence; Z87.01 Personal history of pneumonia (recurrent); Z89.411 Acquired absence of right great toe; Z79.4 Long term (current) use of insulin; I25.2 Old myocardial infarction; Z82.3 Family history of stroke
CPT/HCPCS: 36600; 70450; 71010; 71250; 74230; 80048; 80048 91; 80053; 80162; 80202; 82550 91; 82803; 82948; 83605; 83735; 83880; 84100; 84484; 85025; 85027; 85378; 85610; 85730; 86140; 87040; 87070; 87205; 87449; 87641; 92526 GN; 92610 GN; 92611 GN; 93005; 93306; 94640; 94640 76; 94760; 94799; 97530 GO; 97530 GP; 99202; 99281; 99285; J1650; J1815; J1956; J2543; J2930; J3370; J7030; J7040; J7050; J7512

== ENCOUNTER 2017-05-13 08:31 | Inpatient (IN) | payer OTHER ==
[~2017-05-13] VITALS: Ht 180.3 cm; Wt 75.8 kg
[2017-05-13] VITALS (7 sets, daily range): BP systolic 84–111; BP diastolic 50–71
[~2017-05-13 08:31] MED LIST changes: +FENOFIBRATE54 M1 PO
[2017-05-13 09:25] LABS: EOSINOPHIL (%) 2.1 % (0-5); EOSINOPHIL COUNT 0.2 K/uL (0-0.3); HEMATOCRIT 34.2 % (38.0-50.0); IMMATURE GRANULOCYTE (%) 0.5 % (0.0-0.7); IMMATURE GRANULOCYTE COUNT 0.1 K/uL; INSTRUMENT ABS NEUTROPHIL CT 7.6 K/uL; LYMPHOCYTE COUNT 2.3 K/uL (1.0-2.8); MCH 28.2 PG (29.0-34.0); MCHC 31.6 G/DL (30.0-36.0); MCV 89.3 FL (86-99); MEAN PLAT.VOLUME 11.7 uM^3 (9.0-12.4); MONOCYTE (%) 8.3 % (3-12); MONOCYTE COUNT 0.9 K/uL (0-0.8); NEUTROPHIL COUNT 7.6 K/uL (1.8-6.4); PLATELET COUNT 143 K/uL (156-360); RBC DIS.WIDTH-CV 18.5 % (11.8-14.6); RBC DIS.WIDTH-SD 59.7 % (39-53); RED BLOOD COUNT 3.83 M/uL (4.00-5.50); WHITE BLOOD COUNT 11.1 K/uL (4.1-10.2)
[2017-05-13 09:31] LABS: INTER. NORMALIZED RATIO 1.1; PROTHROMBIN TIME 12.4 SEC (10.2-12.9)
[2017-05-13 09:33] LABS: PTT 29.9 SEC (25-37)
[2017-05-13 09:36] LABS: CHLORIDE 106 mEq/L (99-109); POTASSIUM 4.3 mEq/L (3.7-5.4); SODIUM 139 mEq/L (136-147)
[2017-05-13 09:37] LABS: GLUCOSE 175 mg/dL (70-99)
[2017-05-13 09:39] LABS: ANION GAP 7 MEQ/L (2-14)
[2017-05-13 09:41] LABS: GFR ESTIMATE (CALCULATED) 46 mL/min/
[2017-05-13 09:42] LABS: UREA NITROGEN (BUN) 35 mg/dL (9-23)
[2017-05-13 09:47] LABS: TROP-I INTERPRETATION NEGATIVE; TROPONIN-I 0.08 ng/mL (0.0-0.30)
[2017-05-13] MEDS ORDERED: NOVOLOG PE100 UNITS/ SC ×3 (11:27→11:29)
[2017-05-13 12:51] LABS: POINT-OF-CARE METER ID UU13113702
[2017-05-13 17:58] LABS: METH RESISTANT S AUREUS PCR POSITIVE (NEGATIVE)
[2017-05-13 18:05] LABS: PROBE CHECK PASS; SPECIMEN PROCESSING CONTROL PASS
[2017-05-13 19:58] LABS: ADD MIUA? NO; BILIRUBIN NEGATIVE; BLOOD NEGATIVE; COLOR YELLOW ((YELLOW)); GLUCOSE (STRIP) 50; KETONES NEGATIVE; LEUKOCYTES NEGATIVE; NITRITE NEGATIVE; PROTEIN (STRIP) NEGATIVE; SPECIFIC GRAVITY 1.013 (1.000-1.030); UCUL ADDED? NO; UROBILINOGEN 0.2 MG/DL (0.2-1.0)
[2017-05-13 23:55] LABS: POINT-OF-CARE METER ID UU13113803; POINT-OF-CARE USER ID 609231305
[2017-05-14] VITALS (22 sets, daily range): BP systolic 93–132; BP diastolic 56–81
[2017-05-14 05:23] LABS: HEMATOCRIT 29.8 % (38.0-50.0); MCH 29.4 PG (29.0-34.0); MCHC 32.9 G/DL (30.0-36.0); MCV 89.5 FL (86-99); MEAN PLAT.VOLUME 11.6 uM^3 (9.0-12.4); PLATELET COUNT 124 K/uL (156-360); RBC DIS.WIDTH-CV 18.1 % (11.8-14.6); RBC DIS.WIDTH-SD 59.1 % (39-53); RED BLOOD COUNT 3.33 M/uL (4.00-5.50); WHITE BLOOD COUNT 9.5 K/uL (4.1-10.2)
[2017-05-14 05:52] LABS: ANION GAP 11 MEQ/L (2-14); CHLORIDE 106 MEQ/L (99-109); GFR ESTIMATE (CALCULATED) 53 mL/min/; GLUCOSE 259 mg/dL (70-99); POTASSIUM 4.5 MEQ/L (3.7-5.4); SAMPLE HEMOLYSIS CHECK 0; SAMPLE ICTERIC CHECK 0; SAMPLE LIPEMIA CHECK 0; SODIUM 139 MEQ/L (136-147); UREA NITROGEN (BUN) 37 mg/dL (9-23)
[2017-05-14 08:38] LABS: POINT-OF-CARE METER ID UU14208751
[2017-05-14 12:51] LABS: POINT-OF-CARE METER ID UU14208751; POINT-OF-CARE USER ID 606021424
[2017-05-14 17:39] LABS: POINT-OF-CARE METER ID UU14208751
[2017-05-15] VITALS (8 sets, daily range): BP systolic 89–124; BP diastolic 57–78
[2017-05-15 00:44] LABS: POINT-OF-CARE METER ID UU14208751
[2017-05-15 03:31] LABS: POINT-OF-CARE METER ID UU13113748; POINT-OF-CARE USER ID 609231305
[2017-05-15 06:37] LABS: POINT-OF-CARE METER ID UU13113748
[2017-05-15 09:13] LABS: POINT-OF-CARE METER ID UU13113748
[2017-05-15 09:37] LABS: HEMATOCRIT 32.1 % (38.0-50.0); MCH 28.3 PG (29.0-34.0); MCHC 31.8 G/DL (30.0-36.0); MCV 88.9 FL (86-99); MEAN PLAT.VOLUME 11.8 uM^3 (9.0-12.4); PLATELET COUNT 154 K/uL (156-360); RBC DIS.WIDTH-CV 18.5 % (11.8-14.6); RBC DIS.WIDTH-SD 59.9 % (39-53); RED BLOOD COUNT 3.61 M/uL (4.00-5.50); WHITE BLOOD COUNT 8.8 K/uL (4.1-10.2)
[2017-05-15 10:11] LABS: ANION GAP 11 MEQ/L (2-14); CHLORIDE 108 MEQ/L (99-109); GFR ESTIMATE (CALCULATED) 49 mL/min/; POTASSIUM 4.4 MEQ/L (3.7-5.4); SAMPLE HEMOLYSIS CHECK 0; SAMPLE ICTERIC CHECK 0; SAMPLE LIPEMIA CHECK 0; SODIUM 143 MEQ/L (136-147); UREA NITROGEN (BUN) 37 mg/dL (9-23)
[2017-05-15 10:12] LABS: GLUCOSE 74 mg/dL (70-99)
[2017-05-15 11:47] LABS: POINT-OF-CARE METER ID UU13113748
[2017-05-15 18:04] LABS: POINT-OF-CARE METER ID UU13113725
[2017-05-15 20:54] LABS: POINT-OF-CARE METER ID UU13113774
[2017-05-16 03:55] VITALS: BP 103/63
[2017-05-16 05:56] LABS: POINT-OF-CARE METER ID UU13113774
[2017-05-16 06:30] LABS: HEMATOCRIT 32.1 % (38.0-50.0); MCH 29.1 PG (29.0-34.0); MCHC 32.4 G/DL (30.0-36.0); MCV 89.7 FL (86-99); MEAN PLAT.VOLUME 12.3 uM^3 (9.0-12.4); PLATELET COUNT 160 K/uL (156-360); RBC DIS.WIDTH-CV 18.4 % (11.8-14.6); RBC DIS.WIDTH-SD 60.8 % (39-53); RED BLOOD COUNT 3.58 M/uL (4.00-5.50)
[2017-05-16 06:55] LABS: ANION GAP 10 MEQ/L (2-14); CHLORIDE 105 MEQ/L (99-109); GFR ESTIMATE (CALCULATED) 46 mL/min/; POTASSIUM 4.1 MEQ/L (3.7-5.4); SAMPLE HEMOLYSIS CHECK 0; SAMPLE ICTERIC CHECK 0; SAMPLE LIPEMIA CHECK 0; SODIUM 139 MEQ/L (136-147); UREA NITROGEN (BUN) 42 mg/dL (9-23)
[2017-05-16 06:57] LABS: GLUCOSE 160 mg/dL (70-99)
[2017-05-16 07:21] VITALS: BP 116/68
[2017-05-16 11:35] LABS: POINT-OF-CARE METER ID UU13113774
[2017-05-16 12:00] VITALS: BP 129/70
[2017-05-16 16:12] LABS: POINT-OF-CARE METER ID UU13113774
[2017-05-16 16:20] VITALS: BP 110/71
[2017-05-16 20:39] VITALS: BP 96/62
[2017-05-16 22:11] LABS: POINT-OF-CARE METER ID UU13113774
[2017-05-17] VITALS (7 sets, daily range): BP systolic 94–114; BP diastolic 59–77
[2017-05-17 06:16] LABS: POINT-OF-CARE METER ID UU13113725; POINT-OF-CARE USER ID 611181321
[2017-05-17 06:32] LABS: HEMATOCRIT 33.7 % (38.0-50.0); MCHC 32.3 G/DL (30.0-36.0); MCV 89.6 FL (86-99); MEAN PLAT.VOLUME 11.5 uM^3 (9.0-12.4); NRBC (%) 0.4 /100 WBC (0-0); PLATELET COUNT 170 K/uL (156-360); RBC DIS.WIDTH-CV 18.3 % (11.8-14.6); RED BLOOD COUNT 3.76 M/uL (4.00-5.50); WHITE BLOOD COUNT 7.3 K/uL (4.1-10.2)
[2017-05-17 07:00] LABS: ANION GAP 11 MEQ/L (2-14); CHLORIDE 106 MEQ/L (99-109); GFR ESTIMATE (CALCULATED) 46 mL/min/; POTASSIUM 3.8 MEQ/L (3.7-5.4); SAMPLE HEMOLYSIS CHECK 0; SAMPLE ICTERIC CHECK 0; SAMPLE LIPEMIA CHECK 0; SODIUM 143 MEQ/L (136-147); UREA NITROGEN (BUN) 45 mg/dL (9-23)
[2017-05-17 07:08] LABS: GLUCOSE 102 mg/dL (70-99)
[2017-05-17 11:32] LABS: POINT-OF-CARE METER ID UU13113725
[2017-05-17 16:15] LABS: POINT-OF-CARE METER ID UU13113774
[2017-05-17 22:11] LABS: POINT-OF-CARE METER ID UU13113774
[2017-05-18 05:38] LABS: POINT-OF-CARE METER ID UU13113774
[2017-05-18 06:50] VITALS: BP 118/77
[2017-05-18 07:26] LABS: ANION GAP 13 MEQ/L (2-14); CHLORIDE 101 MEQ/L (99-109); GFR ESTIMATE (CALCULATED) 38 mL/min/; GLUCOSE 147 mg/dL (70-99); POTASSIUM 4.1 MEQ/L (3.7-5.4); SAMPLE HEMOLYSIS CHECK 0; SAMPLE ICTERIC CHECK 0; SAMPLE LIPEMIA CHECK 0; SODIUM 141 MEQ/L (136-147); UREA NITROGEN (BUN) 40 mg/dL (9-23)
[2017-05-18 11:02] VITALS: BP 99/58
[2017-05-18 11:24] LABS: POINT-OF-CARE METER ID UU13113774
[2017-05-18 15:10] VITALS: BP 118/74
[2017-05-18 16:32] LABS: POINT-OF-CARE METER ID UU13113774
[2017-05-18 20:58] VITALS: BP 121/75
[2017-05-18 22:11] LABS: POINT-OF-CARE METER ID UU13113774
[2017-05-19 00:23] VITALS: BP 112/70
[2017-05-19 04:54] VITALS: BP 106/57
[2017-05-19 06:44] VITALS: BP 126/76
[2017-05-19 06:49] LABS: ANION GAP 8 MEQ/L (2-14); CHLORIDE 105 MEQ/L (99-109); GFR ESTIMATE (CALCULATED) 49 mL/min/; GLUCOSE 219 mg/dL (70-99); POTASSIUM 4.4 MEQ/L (3.7-5.4); SAMPLE HEMOLYSIS CHECK 0; SAMPLE ICTERIC CHECK 0; SAMPLE LIPEMIA CHECK 0; SODIUM 137 MEQ/L (136-147); UREA NITROGEN (BUN) 34 mg/dL (9-23)
[2017-05-19 07:19] LABS: POINT-OF-CARE METER ID UU13113725
[2017-05-19] MEDS ORDERED: AUGMENTIN875 MG PO (07:37)
[2017-05-19] MEDS ORDERED: METOPROLOL SUCC25 MG PO (07:37)
[2017-05-19] MEDS ORDERED: NOVOLOG PE100 UNITS/ SC (07:37)
[2017-05-19] MEDS ORDERED: SEROQUEL12.5 MG PO (07:37)
[2017-05-19 11:14] VITALS: BP 100/64
[2017-05-19 11:25] LABS: POINT-OF-CARE METER ID UU13113774
== END 2017-05-19 15:47 | disposition home health service (06) | DRG 871 ==
LOC: EME 08:31 → EDOF 11:21 → 4WEST 11:21 → CANRESERV 11:30 → ENRESERV 11:30 → CANRESERV 12:35 → ENRESERV 12:35 → EDOF 12:41 → ENRESERV 13:55 → 4WEST 16:26 → ENRESERV 05-15 02:07 → 5EAST 05-15 17:13 → ENPENDDIS 05-19 → 5EAST 05-19 15:47
PROVIDERS: Emergency Medicine; Hospitalist; Internal Medicine; Internal Medicine Critical Care Medicine; Specialist
DX: A41.9 Sepsis, unspecified organism (principal); J69.0 Pneumonitis due to inhalation of food and vomit; L89.613 Pressure ulcer of right heel, stage 3; N17.9 Acute kidney failure, unspecified; I13.0 Hypertensive heart and chronic kidney disease with heart failure and stage 1 through stage 4 chronic kidney disease, or unspecified chronic kidney disease; I50.22 Chronic systolic (congestive) heart failure; I69.351 Hemiplegia and hemiparesis following cerebral infarction affecting right dominant side; J44.1 Chronic obstructive pulmonary disease with (acute) exacerbation; D63.1 Anemia in chronic kidney disease; E11.22 Type 2 diabetes mellitus with diabetic chronic kidney disease; N18.3 Chronic kidney disease, stage 3 (moderate); I95.9 Hypotension, unspecified; R09.02 Hypoxemia; E11.40 Type 2 diabetes mellitus with diabetic neuropathy, unspecified; E11.649 Type 2 diabetes mellitus with hypoglycemia without coma; G40.909 Epilepsy, unspecified, not intractable, without status epilepticus; H54.61 Unqualified visual loss, right eye, normal vision left eye; I25.10 Atherosclerotic heart disease of native coronary artery without angina pectoris; I25.5 Ischemic cardiomyopathy; I73.9 Peripheral vascular disease, unspecified; Z99.81 Dependence on supplemental oxygen; Z87.01 Personal history of pneumonia (recurrent); Z87.891 Personal history of nicotine dependence; Z95.1 Presence of aortocoronary bypass graft; I25.2 Old myocardial infarction; Z79.4 Long term (current) use of insulin; Z89.411 Acquired absence of right great toe
CPT/HCPCS: 71010; 74230; 80048; 80069; 81003; 82948; 83605; 83880; 84484; 85025; 85027; 85610; 85730; 87040; 87641; 90686; 92507 GN; 92526 GN; 92611 GN; 93005; 94640; 94640 76; 94799; 99202; 99281; 99285; J0295; J0456; J0696; J1644; J1815; J2930; J7030; J7040; J7050; J7512

== ENCOUNTER 2017-07-05 11:58 | Inpatient (IN) | payer OTHER ==
[~2017-07-05] VITALS: Ht 181.6 cm; Wt 80.6 kg
[~2017-07-05 11:58] MED LIST changes: +METOPROLOL SUCC25 MG PO
[2017-07-05 13:12] LABS: HEMATOCRIT 35.6 % (38.0-50.0); MCH 29.1 PG (29.0-34.0); MCHC 31.2 G/DL (30.0-36.0); MCV 93.4 FL (86-99); MEAN PLAT.VOLUME 12.4 uM^3 (9.0-12.4); PLATELET COUNT 173 K/uL (156-360); RBC DIS.WIDTH-CV 18.5 % (11.8-14.6); RBC DIS.WIDTH-SD 63.5 % (39-53); RED BLOOD COUNT 3.81 M/uL (4.00-5.50); WHITE BLOOD COUNT 7.7 K/uL (4.1-10.2)
[2017-07-05 13:21] LABS: CHLORIDE 110 mEq/L (99-109); SODIUM 144 mEq/L (136-147)
[2017-07-05 13:22] LABS: GLUCOSE 75 mg/dL (70-99)
[2017-07-05 13:24] LABS: ANION GAP 13 MEQ/L (2-14)
[2017-07-05 13:26] LABS: GFR ESTIMATE (CALCULATED) 49 mL/min/
[2017-07-05 13:27] LABS: UREA NITROGEN (BUN) 36 mg/dL (9-23)
[2017-07-05 13:35] LABS: TROP-I INTERPRETATION NEGATIVE; TROPONIN-I 0.07 ng/mL (0.0-0.30)
[2017-07-05] MEDS ORDERED: LORAZEPAM1 MG PO (15:03)
[2017-07-05] MEDS ORDERED: LISINOPRIL5 MG PO (15:03)
[2017-07-05] MEDS ORDERED: DIGOXIN125 MCG PO (15:03)
[2017-07-05] MEDS ORDERED: QUETIAPINE FUMA25 MG PO (15:03)
[2017-07-05] MEDS ORDERED: CARVEDILOL3.125 MG PO (15:04)
[2017-07-05] MEDS ORDERED: FLONASE SENSIM9.9 ML BOTH NARES (15:07)
[2017-07-05] MEDS ORDERED: NOVOLOG PE100 UNITS/ SC ×3 (15:08→15:20)
[2017-07-05 17:39] VITALS: BP 128/78
[2017-07-05 17:56] LABS: POINT-OF-CARE METER ID UU13113831
[2017-07-05 19:11] LABS: TROP-I INTERPRETATION NEGATIVE; TROPONIN-I 0.06 ng/mL (0.0-0.30)
[2017-07-05 21:00] VITALS: BP 113/69
[2017-07-05 21:40] LABS: POINT-OF-CARE METER ID UU13113700
[2017-07-06] VITALS (8 sets, daily range): BP systolic 102–122; BP diastolic 58–85
[2017-07-06 01:02] LABS: TROP-I INTERPRETATION NEGATIVE; TROPONIN-I 0.06 ng/mL (0.0-0.30)
[2017-07-06 06:01] LABS: ANION GAP 9 MEQ/L (2-14); CHLORIDE 108 MEQ/L (99-109); GFR ESTIMATE (CALCULATED) 46 mL/min/; GLUCOSE 77 mg/dL (70-99); POTASSIUM 3.7 MEQ/L (3.7-5.4); SAMPLE HEMOLYSIS CHECK 0; SAMPLE ICTERIC CHECK 0; SAMPLE LIPEMIA CHECK 0; SODIUM 145 MEQ/L (136-147); UREA NITROGEN (BUN) 36 mg/dL (9-23)
[2017-07-06 08:47] LABS: POINT-OF-CARE METER ID UU13113831
[2017-07-06 10:40] LABS: POINT-OF-CARE METER ID UU13113831
[2017-07-06 12:57] LABS: POINT-OF-CARE METER ID UU13113831
[2017-07-06 16:22] LABS: POINT-OF-CARE METER ID UU14174216
[2017-07-06 20:52] LABS: POINT-OF-CARE METER ID UU14174216
[2017-07-07 03:00] VITALS: BP 136/75
[2017-07-07 07:39] VITALS: BP 122/67
[2017-07-07 07:44] LABS: POINT-OF-CARE METER ID UU14174216
[2017-07-07 10:56] LABS: METH RESISTANT S AUREUS PCR POSITIVE (NEGATIVE)
[2017-07-07 10:57] LABS: PROBE CHECK PASS
[2017-07-07 11:16] LABS: POINT-OF-CARE METER ID UU14174216
[2017-07-07 11:17] VITALS: BP 119/62
[2017-07-07 15:03] VITALS: BP 118/73
[2017-07-07 16:35] LABS: POINT-OF-CARE METER ID UU14174216
[2017-07-07 20:00] VITALS: BP 90/54
[2017-07-07 22:33] LABS: POINT-OF-CARE METER ID UU14314088
[2017-07-07 23:30] VITALS: BP 90/51
[2017-07-08] VITALS (17 sets, daily range): BP systolic 75–115; BP diastolic 46–67
[2017-07-08 04:33] LABS: HEMATOCRIT 30.5 % (38.0-50.0); MCH 29.2 PG (29.0-34.0); MCHC 31.8 G/DL (30.0-36.0); MCV 91.9 FL (86-99); MEAN PLAT.VOLUME 11.2 uM^3 (9.0-12.4); PLATELET COUNT 150 K/uL (156-360); RBC DIS.WIDTH-CV 18.4 % (11.8-14.6); RED BLOOD COUNT 3.32 M/uL (4.00-5.50)
[2017-07-08 04:39] LABS: POINT-OF-CARE METER ID UU13113698
[2017-07-08 04:39] LABS: BICARBONATE 26.5 mEq/L (22-26); CARBOXY HGB 2.3 % (0-5); COMMENTS - BLOOD GASES C+; DEVICE NC; METHEMOGLOBIN 1.6 % (0-1.5); O2 FLOW 2 L/MIN; PCO2 40 mm Hg (35-45); PO2 74 mm Hg (80-100); SITE LR; TOTAL RESP RATE 20 resp/min; pH 7.43 (7.35-7.45)
[2017-07-08 04:50] LABS: CHLORIDE 106 mEq/L (99-109); POTASSIUM 3.6 mEq/L (3.7-5.4); SODIUM 141 mEq/L (136-147)
[2017-07-08 04:54] LABS: ANION GAP 13 MEQ/L (2-14); TOTAL BILIRUBIN 0.9 mg/dL (0.0-1.0)
[2017-07-08 04:56] LABS: ALKALINE PHOSPHATASE 36 IU/L (3-129)
[2017-07-08 04:57] LABS: UREA NITROGEN (BUN) 42 mg/dL (9-23)
[2017-07-08 05:00] LABS: GFR ESTIMATE (CALCULATED) 27 mL/min/; GLUCOSE 125 mg/dL (70-99)
[2017-07-08 05:16] LABS: TROP-I INTERPRETATION NEGATIVE; TROPONIN-I 0.23 ng/mL (0.0-0.30)
[2017-07-08 07:57] LABS: POINT-OF-CARE METER ID UU13113698
[2017-07-08 11:15] LABS: TROP-I INTERPRETATION NEGATIVE; TROPONIN-I 0.21 ng/mL (0.0-0.30)
[2017-07-08 11:27] LABS: ANION GAP 11 MEQ/L (2-14); CHLORIDE 106 MEQ/L (99-109); GFR ESTIMATE (CALCULATED) 23 mL/min/; GLUCOSE 117 mg/dL (70-99); POTASSIUM 3.7 MEQ/L (3.7-5.4); SAMPLE HEMOLYSIS CHECK 0; SAMPLE ICTERIC CHECK 0; SAMPLE LIPEMIA CHECK 0; SODIUM 142 MEQ/L (136-147); UREA NITROGEN (BUN) 48 mg/dL (9-23)
[2017-07-08 16:42] LABS: ADD MIUA? NO; BILIRUBIN NEGATIVE; BLOOD NEGATIVE; COLOR YELLOW ((YELLOW)); GLUCOSE (STRIP) NEGATIVE; KETONES NEGATIVE; LEUKOCYTES NEGATIVE; NITRITE NEGATIVE; PROTEIN (STRIP) 30; SPECIFIC GRAVITY 1.017 (1.000-1.030); UROBILINOGEN 0.2 MG/DL (0.2-1.0)
[2017-07-08 17:35] LABS: TROP-I INTERPRETATION NEGATIVE; TROPONIN-I 0.12 ng/mL (0.0-0.30)
[2017-07-08 18:55] LABS: POINT-OF-CARE METER ID UU14162636
[2017-07-08 23:47] LABS: POINT-OF-CARE METER ID UU14314083
[2017-07-09] VITALS (13 sets, daily range): BP systolic 101–130; BP diastolic 55–79
[2017-07-09 05:17] LABS: EOSINOPHIL (%) 2.2 % (0-5); EOSINOPHIL COUNT 0.2 K/uL (0-0.3); HEMATOCRIT 29.7 % (38.0-50.0); IMMATURE GRANULOCYTE (%) 0.3 % (0.0-0.7); INSTRUMENT ABS NEUTROPHIL CT 5.5 K/uL; LYMPHOCYTE COUNT 1.5 K/uL (1.0-2.8); MCH 29.7 PG (29.0-34.0); MCV 92.8 FL (86-99); MEAN PLAT.VOLUME 12.1 uM^3 (9.0-12.4); MONOCYTE (%) 6.4 % (3-12); MONOCYTE COUNT 0.5 K/uL (0-0.8); NEUTROPHIL (%) 71.7 % (45-76); NEUTROPHIL COUNT 5.5 K/uL (1.8-6.4); PLATELET COUNT 147 K/uL (156-360); RBC DIS.WIDTH-CV 18.2 % (11.8-14.6); RBC DIS.WIDTH-SD 62.4 % (39-53); WHITE BLOOD COUNT 7.7 K/uL (4.1-10.2)
[2017-07-09 05:40] LABS: ALKALINE PHOSPHATASE 34 IU/L (3-129); ANION GAP 11 MEQ/L (2-14); CHLORIDE 109 MEQ/L (99-109); GFR ESTIMATE (CALCULATED) 38 mL/min/; GLUCOSE 108 mg/dL (70-99); MAGNESIUM 2.4 mg/dl (1.3-2.7); POTASSIUM 3.9 MEQ/L (3.7-5.4); SAMPLE HEMOLYSIS CHECK 0; SAMPLE ICTERIC CHECK 0; SAMPLE LIPEMIA CHECK 0; SODIUM 144 MEQ/L (136-147); TOTAL BILIRUBIN 0.7 MG/DL (0.0-1.0); UREA NITROGEN (BUN) 42 mg/dL (9-23)
[2017-07-09 13:27] LABS: POINT-OF-CARE METER ID UU14314082
[2017-07-10 07:40] VITALS: BP 128/72
[2017-07-10 07:53] LABS: POINT-OF-CARE METER ID UU13113717
[2017-07-10 11:42] VITALS: BP 122/76
[2017-07-10 12:11] LABS: POINT-OF-CARE METER ID UU13113717
[2017-07-10 16:46] VITALS: BP 136/72
[2017-07-10 17:31] LABS: POINT-OF-CARE METER ID UU13113717
[2017-07-10 17:50] LABS: POINT-OF-CARE METER ID UU13113717
[2017-07-10 18:04] LABS: POINT-OF-CARE METER ID UU13113717
[2017-07-10 19:22] VITALS: BP 122/83
[2017-07-10 21:28] LABS: POINT-OF-CARE METER ID UU13113717
[2017-07-10 23:28] VITALS: BP 141/85
[2017-07-11 03:41] VITALS: BP 132/83
[2017-07-11 08:19] VITALS: BP 132/78
[2017-07-11 08:21] LABS: POINT-OF-CARE METER ID UU13113717
[2017-07-11 10:31] LABS: ANION GAP 7 MEQ/L (2-14); CHLORIDE 110 MEQ/L (99-109); GFR ESTIMATE (CALCULATED) 53 mL/min/; GLUCOSE 176 mg/dL (70-99); POTASSIUM 3.7 MEQ/L (3.7-5.4); SAMPLE HEMOLYSIS CHECK 0; SAMPLE ICTERIC CHECK 0; SAMPLE LIPEMIA CHECK 0; SODIUM 143 MEQ/L (136-147); UREA NITROGEN (BUN) 32 mg/dL (9-23)
[2017-07-11 12:17] VITALS: BP 130/78
[2017-07-11 12:39] LABS: POINT-OF-CARE METER ID UU13113717
[2017-07-11 15:47] VITALS: BP 110/74
[2017-07-11 17:25] LABS: POINT-OF-CARE METER ID UU13113717
[2017-07-11 19:17] VITALS: BP 107/60
[2017-07-11 21:20] LABS: POINT-OF-CARE METER ID UU14174225
[2017-07-11 23:57] VITALS: BP 108/65
[2017-07-12 00:22] LABS: POINT-OF-CARE METER ID UU13113717
[2017-07-12 01:28] LABS: POINT-OF-CARE METER ID UU14174225
[2017-07-12 03:52] VITALS: BP 102/58
[2017-07-12 05:37] LABS: POINT-OF-CARE METER ID UU13113717
[2017-07-12 06:54] LABS: ANION GAP 9 MEQ/L (2-14); CHLORIDE 111 MEQ/L (99-109); GFR ESTIMATE (CALCULATED) 49 mL/min/; GLUCOSE 146 mg/dL (70-99); POTASSIUM 4.1 MEQ/L (3.7-5.4); SAMPLE HEMOLYSIS CHECK 0; SAMPLE ICTERIC CHECK 0; SAMPLE LIPEMIA CHECK 0; SODIUM 145 MEQ/L (136-147); UREA NITROGEN (BUN) 27 mg/dL (9-23)
[2017-07-12 07:22] VITALS: BP 102/59
[2017-07-12 08:22] LABS: POINT-OF-CARE METER ID UU14174225
[2017-07-12] MEDS ORDERED: LISINOPRIL10 MG PO (10:22)
[2017-07-12] MEDS ORDERED: AUGMENTIN875 MG PO (10:59)
[2017-07-12 11:08] VITALS: BP 104/62
[2017-07-12 12:17] LABS: POINT-OF-CARE METER ID UU14174225
== END 2017-07-12 14:35 | DRG 291 ==
LOC: EME 11:58 → EDOF 14:42 → 5WEST 14:42 → EDOF 14:42 → ENRESERV 14:45 → CANRESERV 15:01 → ENRESERV 15:01 → EDOF 15:58 → ENRESERV 16:02 → 5WEST 16:28 → EDOF 16:29 → ENRESERV 16:30 → 5WEST 17:21 → 4EAST 07-06 13:40 → ENRESERV 07-06 13:44 → 5WEST 07-06 14:04 → ENRESERV 07-06 14:06 → 4EAST 07-06 15:30 → ENRESERV 07-08 08:22 → 4WEST 07-08 08:49 → ENRESERV 07-09 10:18 → 4WEST 07-09 13:24 → ENRESERV 07-09 15:00 → 5SOUTH 07-09 16:27 → ENPENDDIS 07-12 10:39 → 5SOUTH 07-12 14:35
PROVIDERS: Family Medicine; Hospitalist; Internal Medicine; Internal Medicine Cardiovascular Disease; Obstetrics & Gynecology; Physician Assistant Medical
PROC: 0HBMXZZ Excision of Right Foot Skin, External Approach (ICD-10-PCS; principal; 2017-07-06)
PROC: 02HV33Z Insertion of Infusion Device into Superior Vena Cava, Percutaneous Approach (ICD-10-PCS; 2017-07-08)
DX: I13.0 Hypertensive heart and chronic kidney disease with heart failure and stage 1 through stage 4 chronic kidney disease, or unspecified chronic kidney disease (principal); I50.23 Acute on chronic systolic (congestive) heart failure; N18.3 Chronic kidney disease, stage 3 (moderate); J96.21 Acute and chronic respiratory failure with hypoxia; J69.0 Pneumonitis due to inhalation of food and vomit; N17.9 Acute kidney failure, unspecified; G93.41 Metabolic encephalopathy; I44.2 Atrioventricular block, complete; I48.91 Unspecified atrial fibrillation; R33.9 Retention of urine, unspecified; E86.1 Hypovolemia; L89.613 Pressure ulcer of right heel, stage 3; E11.42 Type 2 diabetes mellitus with diabetic polyneuropathy; E11.22 Type 2 diabetes mellitus with diabetic chronic kidney disease; E11.51 Type 2 diabetes mellitus with diabetic peripheral angiopathy without gangrene; E78.5 Hyperlipidemia, unspecified; I45.2 Bifascicular block; I25.5 Ischemic cardiomyopathy; I42.0 Dilated cardiomyopathy; I95.9 Hypotension, unspecified; J43.9 Emphysema, unspecified; D64.9 Anemia, unspecified; F03.90 Unspecified dementia, unspecified severity, without behavioral disturbance, psychotic disturbance, mood disturbance, and anxiety; R00.1 Bradycardia, unspecified; G40.909 Epilepsy, unspecified, not intractable, without status epilepticus; H54.61 Unqualified visual loss, right eye, normal vision left eye; I25.10 Atherosclerotic heart disease of native coronary artery without angina pectoris; I25.2 Old myocardial infarction; M72.0 Palmar fascial fibromatosis [Dupuytren]; F32.9 Major depressive disorder, single episode, unspecified; Z99.81 Dependence on supplemental oxygen; Z87.891 Personal history of nicotine dependence; Z79.4 Long term (current) use of insulin; Z79.82 Long term (current) use of aspirin; Z80.42 Family history of malignant neoplasm of prostate; Z82.3 Family history of stroke; I69.351 Hemiplegia and hemiparesis following cerebral infarction affecting right dominant side; Z89.412 Acquired absence of left great toe; Z95.1 Presence of aortocoronary bypass graft
CPT/HCPCS: 36600; 71010; 71020; 71250; 80048; 80048 91; 80053; 81003; 82140; 82803; 82948; 83605; 83735; 83880; 84100; 84484; 85025; 85027; 87040; 87070; 87106; 87205; 87641; 93005; 93306; 94640; 94640 76; 94760; 94799; 99202; 99281; 99285; C1751; G0378; G8978 GP CI; G8979 GP CH; G8987 GO CI; G8988 GO CH; J1644; J1815; J1940; J2543; J3370; J7040; J7050; J7120; J7512; S0028

== ENCOUNTER 2017-08-13 17:40 | Emergency (ER) | payer OTHER ==
[~2017-08-13] VITALS: Ht 180.3 cm; Wt 78.6 kg
[~2017-08-13 17:40] MED LIST changes: +FLONASE SENSIM9.9 ML BOTH NARES; +LISINOPRIL10 MG PO; +LORAZEPAM1 MG PO; +QUETIAPINE FUMA25 MG PO
[2017-08-13 19:05] LABS: HEMOGLOBIN 10.9 G/DL (12.5-16.6); MCH 28.7 PG (29.0-34.0); MCHC 31.1 G/DL (30.0-36.0); MCV 92.1 FL (86-99); PLATELET COUNT 130 K/uL (156-360); RBC DIS.WIDTH-CV 16.8 % (11.8-14.6); RBC DIS.WIDTH-SD 57.3 % (39-53); WHITE BLOOD COUNT 7.3 K/uL (4.1-10.2)
[2017-08-13 19:13] LABS: CHLORIDE 114 mEq/L (99-109); POTASSIUM 4.1 mEq/L (3.7-5.4); SODIUM 146 mEq/L (136-147)
[2017-08-13 19:15] LABS: GLUCOSE 58 mg/dL (70-99)
[2017-08-13 19:19] LABS: CREATININE 1.3 mg/dL (0.6-1.3); GFR ESTIMATE (CALCULATED) 58 mL/min/ (58.99-99999); UREA NITROGEN (BUN) 27 mg/dL (9-23)
[2017-08-13] MEDS ORDERED: AUGMENTIN875 MG PO (20:11)
[2017-08-13] MEDS ORDERED: ZITHROMAX Z-PA250 MG PO (20:11)
[2017-08-13 20:19] VITALS: BP 100/54
== END 2017-08-13 20:32 | disposition home or self-care (01) ==
LOC: EME 17:40
DX: J18.9 Pneumonia, unspecified organism (principal); J44.0 Chronic obstructive pulmonary disease with (acute) lower respiratory infection; I69.991 Dysphagia following unspecified cerebrovascular disease; R13.19 Other dysphagia; Z99.81 Dependence on supplemental oxygen; F03.90 Unspecified dementia, unspecified severity, without behavioral disturbance, psychotic disturbance, mood disturbance, and anxiety; I12.9 Hypertensive chronic kidney disease with stage 1 through stage 4 chronic kidney disease, or unspecified chronic kidney disease; E11.22 Type 2 diabetes mellitus with diabetic chronic kidney disease; N18.9 Chronic kidney disease, unspecified; Z79.4 Long term (current) use of insulin; I25.2 Old myocardial infarction; Z95.1 Presence of aortocoronary bypass graft; Z79.52 Long term (current) use of systemic steroids; Z79.82 Long term (current) use of aspirin; Z87.01 Personal history of pneumonia (recurrent); Z87.891 Personal history of nicotine dependence
CPT/HCPCS: 71046; 80048; 85027

== ENCOUNTER 2017-08-30 11:06 | Inpatient (IN) | payer OTHER ==
[~2017-08-30] VITALS: Ht 180.3 cm; Wt 81.9 kg
[~2017-08-30 11:06] MED LIST changes: +ZITHROMAX Z-PA250 MG PO
[2017-08-30 12:07] LABS: BASOPHIL (%) 0.4 % (0-1); EOSINOPHIL (%) 0.4 % (0-5); EOSINOPHIL COUNT 0.1 K/uL (0-0.3); HEMATOCRIT 37.4 % (38.0-50.0); IMMATURE GRANULOCYTE (%) 0.3 % (0.0-0.7); LYMPHOCYTE (%) 16.3 % (15-42); LYMPHOCYTE COUNT 1.8 K/uL (1.0-2.8); MCH 28.5 PG (29.0-34.0); MCHC 32.1 G/DL (30.0-36.0); MCV 88.8 FL (86-99); MONOCYTE (%) 6.9 % (3-12); MONOCYTE COUNT 0.8 K/uL (0-0.8); NEUTROPHIL (%) 75.7 % (45-76); NEUTROPHIL COUNT 8.5 K/uL (1.8-6.4); PLATELET COUNT 152 K/uL (156-360); RBC DIS.WIDTH-CV 16.2 % (11.8-14.6); RBC DIS.WIDTH-SD 52.8 % (39-53); RED BLOOD COUNT 4.21 M/uL (4.00-5.50); WHITE BLOOD COUNT 11.2 K/uL (4.1-10.2)
[2017-08-30 12:12] LABS: INTER. NORMALIZED RATIO 1.2
[2017-08-30 12:15] LABS: CHLORIDE 110 mEq/L (99-109); POTASSIUM 3.9 mEq/L (3.7-5.4); PTT 32.2 SEC (25-37); SODIUM 146 mEq/L (136-147)
[2017-08-30 12:17] LABS: GLUCOSE 185 mg/dL (70-99); TOTAL PROTEIN 7.2 g/dL (6.4-8.3)
[2017-08-30 12:19] LABS: TOTAL BILIRUBIN 0.6 mg/dL (0.0-1.0)
[2017-08-30 12:21] LABS: ALKALINE PHOSPHATASE 37 IU/L (3-129); CREATININE 3.4 mg/dL (0.6-1.3); GFR ESTIMATE (CALCULATED) 19 mL/min/ (58.99-99999)
[2017-08-30 12:22] LABS: UREA NITROGEN (BUN) 67 mg/dL (9-23)
[2017-08-30 12:23] LABS: AST (GOT) 23 IU/L (2-34)
[2017-08-30 12:24] LABS: ALT (GPT) 15 IU/L (3-49)
[2017-08-30 12:26] LABS: TROP-I INTERPRETATION NEGATIVE; TROPONIN-I 0.13 ng/mL (0.0-0.30)
[2017-08-30] MEDS ORDERED: LASIX40 MG PO (14:59)
[2017-08-30] MEDS ORDERED: NOVOLOG PE100 UNITS/ SC ×2 (15:03→15:04)
[2017-08-30] MEDS ORDERED: FLONASE16 G1 BOTH NARES (15:05)
[2017-08-30] MEDS ORDERED: LISINOPRIL10 MG PO (15:06)
[2017-08-30 15:43] LABS: TROP-I INTERPRETATION NEGATIVE; TROPONIN-I 0.11 ng/mL (0.0-0.30)
[2017-08-30 16:22] LABS: APPEARANCE CLEAR ((CLEAR)); BILIRUBIN NEGATIVE; BLOOD NEGATIVE; COLOR YELLOW ((YELLOW)); GLUCOSE (STRIP) NEGATIVE; KETONES NEGATIVE; LEUKOCYTES NEGATIVE; NITRITE NEGATIVE; PROTEIN (STRIP) NEGATIVE; SPECIFIC GRAVITY 1.014 (1.000-1.030); UCUL ADDED? NO; UROBILINOGEN 0.2 MG/DL (0.2-1.0)
[2017-08-30 17:54] LABS: UR CREATININE CONCENTRATION 86.1 MG/DL
[2017-08-30 23:20] VITALS: BP 109/71
[2017-08-31] VITALS (11 sets, daily range): BP systolic 82–118; BP diastolic 45–77
[2017-08-31 01:46] LABS: TROP-I INTERPRETATION NEGATIVE; TROPONIN-I 0.09 ng/mL (0.0-0.30)
[2017-08-31 06:45] LABS: CHLORIDE 109 MEQ/L (99-109); GFR ESTIMATE (CALCULATED) 33 mL/min/ (58.99-99999); POTASSIUM 3.2 MEQ/L (3.7-5.4); SODIUM 143 MEQ/L (136-147); UREA NITROGEN (BUN) 56 mg/dL (9-23)
[2017-08-31 06:46] LABS: CREATININE 2.1 MG/DL (0.6-1.3); GLUCOSE 49 mg/dL (70-99)
[2017-08-31 07:37] LABS: BASOPHIL (%) 0.3 % (0-1); EOSINOPHIL COUNT 0.1 K/uL (0-0.3); HEMATOCRIT 33.8 % (38.0-50.0); HEMOGLOBIN 10.4 G/DL (12.5-16.6); IMMATURE GRANULOCYTE (%) 0.3 % (0.0-0.7); LYMPHOCYTE COUNT 1.7 K/uL (1.0-2.8); MCH 27.7 PG (29.0-34.0); MCHC 30.8 G/DL (30.0-36.0); MCV 89.9 FL (86-99); MONOCYTE (%) 7.4 % (3-12); MONOCYTE COUNT 0.7 K/uL (0-0.8); NEUTROPHIL COUNT 7.4 K/uL (1.8-6.4); PLATELET COUNT 140 K/uL (156-360); RBC DIS.WIDTH-CV 15.9 % (11.8-14.6); RBC DIS.WIDTH-SD 52.6 % (39-53); RED BLOOD COUNT 3.76 M/uL (4.00-5.50)
[2017-08-31 12:06] LABS: HIGH-SENS C-REACTIVE PROTEIN 6.69 MG/DL (0.02-0.20)
[2017-09-01] VITALS (19 sets, daily range): BP systolic 95–124; BP diastolic 55–78
[2017-09-01 10:34] LABS: SCL-70 (SCLERODERMA) ANTIBODY 13 U/mL (0-99)
[2017-09-01 10:45] LABS: HEMATOCRIT 33.1 % (38.0-50.0); HEMOGLOBIN 10.3 G/DL (12.5-16.6); MCH 27.8 PG (29.0-34.0); MCHC 31.1 G/DL (30.0-36.0); MCV 89.5 FL (86-99); PLATELET COUNT 120 K/uL (156-360); RBC DIS.WIDTH-CV 15.7 % (11.8-14.6); RBC DIS.WIDTH-SD 51.1 % (39-53); WHITE BLOOD COUNT 6.3 K/uL (4.1-10.2)
[2017-09-01 11:06] LABS: ALBUMIN 3.7 G/DL (3.2-4.8); ALKALINE PHOSPHATASE 33 IU/L (3-129); ALT (GPT) 14 IU/L (3-49); AST (GOT) 18 IU/L (2-34); CHLORIDE 110 MEQ/L (99-109); CREATININE 1.8 MG/DL (0.6-1.3); GFR ESTIMATE (CALCULATED) 40 mL/min/ (58.99-99999); SODIUM 143 MEQ/L (136-147); TOTAL BILIRUBIN 0.4 MG/DL (0.0-1.0); TOTAL PROTEIN 6.4 G/DL (6.4-8.3); UREA NITROGEN (BUN) 45 mg/dL (9-23)
[2017-09-01 11:07] LABS: GLUCOSE 250 mg/dL (70-99); POTASSIUM 3.9 MEQ/L (3.7-5.4)
[2017-09-02 03:49] VITALS: BP 109/68
[2017-09-02 08:02] VITALS: BP 116/62
[2017-09-02 09:28] LABS: BASOPHIL (%) 0.3 % (0-1); EOSINOPHIL (%) 0 % (0-5); HEMATOCRIT 34.4 % (38.0-50.0); HEMOGLOBIN 10.5 G/DL (12.5-16.6); IMMATURE GRANULOCYTE (%) 1.7 % (0.0-0.7); LYMPHOCYTE (%) 26.2 % (15-42); LYMPHOCYTE COUNT 1.6 K/uL (1.0-2.8); MCH 27.6 PG (29.0-34.0); MCHC 30.5 G/DL (30.0-36.0); MCV 90.5 FL (86-99); MONOCYTE (%) 3.5 % (3-12); MONOCYTE COUNT 0.2 K/uL (0-0.8); NEUTROPHIL (%) 68.3 % (45-76); NEUTROPHIL COUNT 4.1 K/uL (1.8-6.4); PLATELET COUNT 121 K/uL (156-360); RBC DIS.WIDTH-CV 15.7 % (11.8-14.6); RBC DIS.WIDTH-SD 52.2 % (39-53)
[2017-09-02 09:54] LABS: CHLORIDE 111 MEQ/L (99-109); CREATININE 1.5 MG/DL (0.6-1.3); GFR ESTIMATE (CALCULATED) 49 mL/min/ (58.99-99999); GLUCOSE 292 mg/dL (70-99); POTASSIUM 3.7 MEQ/L (3.7-5.4); SODIUM 146 MEQ/L (136-147); UREA NITROGEN (BUN) 42 mg/dL (9-23)
[2017-09-02 15:40] VITALS: BP 112/62
[2017-09-02 23:33] VITALS: BP 119/76
[2017-09-03 05:58] LABS: CHLORIDE 112 MEQ/L (99-109); CREATININE 1.4 MG/DL (0.6-1.3); GFR ESTIMATE (CALCULATED) 53 mL/min/ (58.99-99999); GLUCOSE 229 mg/dL (70-99); POTASSIUM 4.2 MEQ/L (3.7-5.4); SODIUM 141 MEQ/L (136-147); UREA NITROGEN (BUN) 38 mg/dL (9-23)
[2017-09-03 07:25] LABS: ALBUMIN 3.4 G/DL (3.2-4.8); PHOSPHORUS 2.2 mg/dL (2.5-4.9)
[2017-09-03 08:05] VITALS: BP 120/72
[2017-09-03 12:23] VITALS: BP 112/58
[2017-09-03 17:35] VITALS: BP 108/64
[2017-09-03 19:27] VITALS: BP 113/74
[2017-09-03 23:27] VITALS: BP 122/69
[2017-09-04 03:08] VITALS: BP 126/78
[2017-09-04 07:05] LABS: ALBUMIN 3.5 G/DL (3.2-4.8); CHLORIDE 109 MEQ/L (99-109); CREATININE 1.4 MG/DL (0.6-1.3); GFR ESTIMATE (CALCULATED) 53 mL/min/ (58.99-99999); GLUCOSE 331 mg/dL (70-99); PHOSPHORUS 2.8 mg/dL (2.5-4.9); SODIUM 142 MEQ/L (136-147); UREA NITROGEN (BUN) 40 mg/dL (9-23)
[2017-09-04 07:42] VITALS: BP 130/80
[2017-09-04 11:54] VITALS: BP 132/72
[2017-09-04] MEDS ORDERED: FUROSEMIDE20 MG PO (14:57)
[2017-09-04] MEDS ORDERED: CARVEDILOL3.125 MG PO (14:57)
[2017-09-04] MEDS ORDERED: PREDNISONE10 MG PO (14:58)
== END 2017-09-04 16:38 | disposition home or self-care (01) | DRG 291 ==
LOC: EME 11:06 → 4WEST 13:34 → EDOF 13:34 → 2EAST 13:34 → ENRESERV 13:35 → 2EAST 23:29 → ENRESERV 08-31 08:31 → 4WEST 08-31 08:47 → ENRESERV 09-01 18:50 → 3EAST 09-01 21:32
PROVIDERS: Emergency Medicine; Hospitalist; Internal Medicine; Internal Medicine Cardiovascular Disease; Internal Medicine Critical Care Medicine; Internal Medicine Nephrology; Student in an Organized Health Care Education/Training Program
DX: R57.9 Shock, unspecified (principal); L89.613 Pressure ulcer of right heel, stage 3; N17.9 Acute kidney failure, unspecified; I13.0 Hypertensive heart and chronic kidney disease with heart failure and stage 1 through stage 4 chronic kidney disease, or unspecified chronic kidney disease; I50.23 Acute on chronic systolic (congestive) heart failure; E11.22 Type 2 diabetes mellitus with diabetic chronic kidney disease; E11.649 Type 2 diabetes mellitus with hypoglycemia without coma; R13.10 Dysphagia, unspecified; I27.20 Pulmonary hypertension, unspecified; N18.3 Chronic kidney disease, stage 3 (moderate); E11.51 Type 2 diabetes mellitus with diabetic peripheral angiopathy without gangrene; I25.5 Ischemic cardiomyopathy; I08.3 Combined rheumatic disorders of mitral, aortic and tricuspid valves; I69.351 Hemiplegia and hemiparesis following cerebral infarction affecting right dominant side; E78.5 Hyperlipidemia, unspecified; I25.2 Old myocardial infarction; I48.91 Unspecified atrial fibrillation; I25.10 Atherosclerotic heart disease of native coronary artery without angina pectoris; Z95.1 Presence of aortocoronary bypass graft; Z79.4 Long term (current) use of insulin; Z89.411 Acquired absence of right great toe; E87.6 Hypokalemia; J44.9 Chronic obstructive pulmonary disease, unspecified; T50.2X5A Adverse effect of carbonic-anhydrase inhibitors, benzothiadiazides and other diuretics, initial encounter
CPT/HCPCS: 71045; 76770; 80048; 80048 91; 80053; 80069; 81003; 82436; 82533 91; 82570; 82948; 83605; 83880; 84145 90; 84156; 84300; 84484; 85025; 85025 91; 85027; 85610; 85730; 86141; 86235; 87040; 87641; 92610 GN; 93005; 94640; 94640 76; 94799; 97530 GO; 97530 GP; 99202; 99281; 99285; J1644; J1720; J1815; J3480; J7030; J7512; P9045

== ENCOUNTER 2017-09-21 19:03 | Inpatient (IN) | payer OTHER ==
[~2017-09-21] VITALS: Ht 180.3 cm; Wt 78.7 kg
[~2017-09-21 19:03] MED LIST changes: +FLONASE16 G1 BOTH NARES; +LASIX40 MG PO
[2017-09-21 20:22] LABS: BASOPHIL (%) 0.3 % (0-1); EOSINOPHIL (%) 0.8 % (0-5); EOSINOPHIL COUNT 0.1 K/uL (0-0.3); HEMATOCRIT 36.1 % (38.0-50.0); HEMOGLOBIN 11.6 G/DL (12.5-16.6); IMMATURE GRANULOCYTE (%) 0.4 % (0.0-0.7); LYMPHOCYTE (%) 21.3 % (15-42); LYMPHOCYTE COUNT 2.3 K/uL (1.0-2.8); MCHC 32.1 G/DL (30.0-36.0); MCV 87.2 FL (86-99); MONOCYTE (%) 4.9 % (3-12); MONOCYTE COUNT 0.5 K/uL (0-0.8); NEUTROPHIL (%) 72.3 % (45-76); NEUTROPHIL COUNT 7.8 K/uL (1.8-6.4); RBC DIS.WIDTH-CV 16.4 % (11.8-14.6); RBC DIS.WIDTH-SD 51.4 % (39-53); RED BLOOD COUNT 4.14 M/uL (4.00-5.50); WHITE BLOOD COUNT 10.8 K/uL (4.1-10.2)
[2017-09-21 20:23] LABS: PLATELET COUNT 212 K/uL (156-360)
[2017-09-21 20:29] LABS: ALBUMIN 3.9 g/dL (3.2-4.8); CHLORIDE 101 mEq/L (99-109); POTASSIUM 4.7 mEq/L (3.7-5.4); SODIUM 139 mEq/L (136-147)
[2017-09-21 20:30] LABS: MAGNESIUM 2.1 mg/dL (1.3-2.7)
[2017-09-21 20:32] LABS: GLUCOSE 240 mg/dL (70-99); TOTAL PROTEIN 7.4 g/dL (6.4-8.3)
[2017-09-21 20:33] LABS: TOTAL BILIRUBIN 0.7 mg/dL (0.0-1.0)
[2017-09-21 20:35] LABS: ALKALINE PHOSPHATASE 47 IU/L (3-129); CREATININE 2.4 mg/dL (0.6-1.3); GFR ESTIMATE (CALCULATED) 29 mL/min/ (58.99-99999)
[2017-09-21 20:36] LABS: UREA NITROGEN (BUN) 49 mg/dL (9-23)
[2017-09-21 20:37] LABS: AST (GOT) 20 IU/L (2-34)
[2017-09-21 20:38] LABS: ALT (GPT) 17 IU/L (3-49)
[2017-09-21 20:41] LABS: TROP-I INTERPRETATION NEGATIVE; TROPONIN-I 0.08 ng/mL (0.0-0.30)
[2017-09-21 21:30] VITALS: BP 114/65
[2017-09-21 21:51] VITALS: BP 117/72
[2017-09-21 22:00] VITALS: BP 111/62
[2017-09-21 23:00] VITALS: BP 114/64
[2017-09-22] VITALS (19 sets, daily range): BP systolic 81–137; BP diastolic 58–77
[2017-09-22 06:03] LABS: CHLORIDE 107 MEQ/L (99-109); MAGNESIUM 2.1 mg/dl (1.3-2.7); SODIUM 143 MEQ/L (136-147); UREA NITROGEN (BUN) 52 mg/dL (9-23)
[2017-09-22 06:06] LABS: CREATININE 1.9 MG/DL (0.6-1.3); GFR ESTIMATE (CALCULATED) 38 mL/min/ (58.99-99999); GLUCOSE 67 mg/dL (70-99); PHOSPHORUS 4.2 mg/dL (2.5-4.9); POTASSIUM 3.6 MEQ/L (3.7-5.4)
[2017-09-22 06:18] LABS: BASOPHIL (%) 0.2 % (0-1); EOSINOPHIL (%) 1.5 % (0-5); EOSINOPHIL COUNT 0.2 K/uL (0-0.3); HEMATOCRIT 33.4 % (38.0-50.0); HEMOGLOBIN 10.7 G/DL (12.5-16.6); IMMATURE GRANULOCYTE (%) 0.5 % (0.0-0.7); LYMPHOCYTE (%) 25.8 % (15-42); LYMPHOCYTE COUNT 2.9 K/uL (1.0-2.8); MCH 28.1 PG (29.0-34.0); MCV 87.7 FL (86-99); MONOCYTE (%) 6.4 % (3-12); MONOCYTE COUNT 0.7 K/uL (0-0.8); NEUTROPHIL (%) 65.6 % (45-76); NEUTROPHIL COUNT 7.4 K/uL (1.8-6.4); PLATELET COUNT 214 K/uL (156-360); RBC DIS.WIDTH-CV 16.4 % (11.8-14.6); RED BLOOD COUNT 3.81 M/uL (4.00-5.50); WHITE BLOOD COUNT 11.3 K/uL (4.1-10.2)
[2017-09-22 12:15] LABS: HEMOGLOBIN A1c (GLYCOHEMOGLOB) 7.8 % (Below 5.7)
[2017-09-23] VITALS (18 sets, daily range): BP systolic 112–140; BP diastolic 64–93
[2017-09-24] VITALS (7 sets, daily range): BP systolic 101–126; BP diastolic 58–69
[2017-09-25 04:50] VITALS: BP 113/63
[2017-09-25 05:40] LABS: BASOPHIL (%) 0.4 % (0-1); EOSINOPHIL COUNT 0.3 K/uL (0-0.3); HEMATOCRIT 30.4 % (38.0-50.0); HEMOGLOBIN 9.5 G/DL (12.5-16.6); IMMATURE GRANULOCYTE (%) 0.9 % (0.0-0.7); LYMPHOCYTE (%) 33.9 % (15-42); LYMPHOCYTE COUNT 2.3 K/uL (1.0-2.8); MCH 26.9 PG (29.0-34.0); MCHC 31.3 G/DL (30.0-36.0); MCV 86.1 FL (86-99); MONOCYTE (%) 8.7 % (3-12); MONOCYTE COUNT 0.6 K/uL (0-0.8); NEUTROPHIL (%) 52.1 % (45-76); NEUTROPHIL COUNT 3.5 K/uL (1.8-6.4); PLATELET COUNT 214 K/uL (156-360); RBC DIS.WIDTH-CV 15.9 % (11.8-14.6); RBC DIS.WIDTH-SD 50.2 % (39-53); RED BLOOD COUNT 3.53 M/uL (4.00-5.50); WHITE BLOOD COUNT 6.8 K/uL (4.1-10.2)
[2017-09-25 06:12] LABS: CHLORIDE 103 MEQ/L (99-109); CREATININE 1.5 MG/DL (0.6-1.3); GFR ESTIMATE (CALCULATED) 49 mL/min/ (58.99-99999); GLUCOSE 167 mg/dL (70-99); POTASSIUM 4.3 MEQ/L (3.7-5.4); SODIUM 138 MEQ/L (136-147); UREA NITROGEN (BUN) 31 mg/dL (9-23)
[2017-09-25 07:30] VITALS: BP 136/76
[2017-09-25 13:24] VITALS: BP 140/84
[2017-09-25 15:45] VITALS: BP 116/69
[2017-09-25 19:36] VITALS: BP 126/70
[2017-09-25 23:15] VITALS: BP 128/76
[2017-09-26] VITALS (7 sets, daily range): BP systolic 85–149; BP diastolic 52–79
[2017-09-26 05:22] LABS: BASOPHIL (%) 0.4 % (0-1); BASOPHIL COUNT 0.1 K/uL (0-0.1); EOSINOPHIL (%) 1.1 % (0-5); EOSINOPHIL COUNT 0.1 K/uL (0-0.3); HEMATOCRIT 34.4 % (38.0-50.0); HEMOGLOBIN 11.3 G/DL (12.5-16.6); LYMPHOCYTE (%) 11.8 % (15-42); LYMPHOCYTE COUNT 1.4 K/uL (1.0-2.8); MCHC 32.8 G/DL (30.0-36.0); MCV 85.1 FL (86-99); MONOCYTE (%) 6.8 % (3-12); MONOCYTE COUNT 0.8 K/uL (0-0.8); NEUTROPHIL (%) 78.9 % (45-76); NEUTROPHIL COUNT 9.3 K/uL (1.8-6.4); NRBC (%) 0.2 /100 WBC (0-0); PLATELET COUNT 217 K/uL (156-360); RBC DIS.WIDTH-CV 16.2 % (11.8-14.6); RBC DIS.WIDTH-SD 49.7 % (39-53); RED BLOOD COUNT 4.04 M/uL (4.00-5.50); WHITE BLOOD COUNT 11.8 K/uL (4.1-10.2)
[2017-09-26 06:02] LABS: CHLORIDE 99 MEQ/L (99-109); CREATININE 1.8 MG/DL (0.6-1.3); GFR ESTIMATE (CALCULATED) 40 mL/min/ (58.99-99999); GLUCOSE 267 mg/dL (70-99); POTASSIUM 4.3 MEQ/L (3.7-5.4); SODIUM 138 MEQ/L (136-147); UREA NITROGEN (BUN) 41 mg/dL (9-23)
[2017-09-26 11:03] LABS: APPEARANCE SL.HAZY ((CLEAR)); BILIRUBIN NEGATIVE; BLOOD NEGATIVE; COLOR YELLOW ((YELLOW)); GLUCOSE (STRIP) NEGATIVE; KETONES NEGATIVE; LEUKOCYTES MODERATE; NITRITE NEGATIVE; PROTEIN (STRIP) NEGATIVE; SPECIFIC GRAVITY 1.013 (1.000-1.030); UROBILINOGEN 0.2 MG/DL (0.2-1.0)
[2017-09-26 11:08] LABS: BACTERIA NONE SEEN /HPF; EPITHELIAL CELLS RARE /HPF; HYALINE CASTS 0-5 /LPF; MUCUS NONE SEEN /LPF; RED BLOOD CELLS 0-5 /HPF (0-5); UCUL ADDED? YES
[2017-09-27 04:00] VITALS: BP 97/56
[2017-09-27 06:18] LABS: BASOPHIL (%) 0.3 % (0-1); EOSINOPHIL (%) 1.8 % (0-5); EOSINOPHIL COUNT 0.1 K/uL (0-0.3); IMMATURE GRANULOCYTE (%) 1.4 % (0.0-0.7); LYMPHOCYTE (%) 23.5 % (15-42); LYMPHOCYTE COUNT 1.8 K/uL (1.0-2.8); MCH 26.9 PG (29.0-34.0); MCV 86.7 FL (86-99); MONOCYTE (%) 7.2 % (3-12); MONOCYTE COUNT 0.6 K/uL (0-0.8); NEUTROPHIL (%) 65.8 % (45-76); NEUTROPHIL COUNT 5.1 K/uL (1.8-6.4); PLATELET COUNT 206 K/uL (156-360); RBC DIS.WIDTH-CV 16.4 % (11.8-14.6); RBC DIS.WIDTH-SD 51.6 % (39-53); RED BLOOD COUNT 3.46 M/uL (4.00-5.50); WHITE BLOOD COUNT 7.8 K/uL (4.1-10.2)
[2017-09-27 06:19] LABS: HEMOGLOBIN 9.3 G/DL (12.5-16.6)
[2017-09-27 06:38] LABS: CHLORIDE 105 MEQ/L (99-109); CREATININE 2.2 MG/DL (0.6-1.3); GFR ESTIMATE (CALCULATED) 32 mL/min/ (58.99-99999); GLUCOSE 168 mg/dL (70-99); POTASSIUM 4.1 MEQ/L (3.7-5.4); SODIUM 140 MEQ/L (136-147); UREA NITROGEN (BUN) 45 mg/dL (9-23)
[2017-09-27 07:30] VITALS: BP 103/57
[2017-09-27 11:42] VITALS: BP 108/59
[2017-09-27 16:14] VITALS: BP 90/51
[2017-09-27 19:45] VITALS: BP 107/58
[2017-09-27 23:21] VITALS: BP 110/69
[2017-09-28 05:37] VITALS: BP 105/60
[2017-09-28 05:53] LABS: BASOPHIL (%) 0.3 % (0-1); EOSINOPHIL (%) 2.7 % (0-5); EOSINOPHIL COUNT 0.2 K/uL (0-0.3); HEMATOCRIT 27.3 % (38.0-50.0); HEMOGLOBIN 8.7 G/DL (12.5-16.6); IMMATURE GRANULOCYTE (%) 2.2 % (0.0-0.7); LYMPHOCYTE (%) 22.9 % (15-42); LYMPHOCYTE COUNT 1.8 K/uL (1.0-2.8); MCH 27.7 PG (29.0-34.0); MCHC 31.9 G/DL (30.0-36.0); MCV 86.9 FL (86-99); MONOCYTE (%) 6.9 % (3-12); MONOCYTE COUNT 0.5 K/uL (0-0.8); NEUTROPHIL COUNT 5.1 K/uL (1.8-6.4); PLATELET COUNT 190 K/uL (156-360); RBC DIS.WIDTH-CV 16.6 % (11.8-14.6); RBC DIS.WIDTH-SD 51.6 % (39-53); RED BLOOD COUNT 3.14 M/uL (4.00-5.50); WHITE BLOOD COUNT 7.8 K/uL (4.1-10.2)
[2017-09-28 06:20] LABS: CHLORIDE 107 MEQ/L (99-109); CREATININE 1.7 MG/DL (0.6-1.3); GFR ESTIMATE (CALCULATED) 43 mL/min/ (58.99-99999); GLUCOSE 196 mg/dL (70-99); SODIUM 136 MEQ/L (136-147); UREA NITROGEN (BUN) 32 mg/dL (9-23); VANCOMYCIN, TROUGH 23.5 MCG/ML (10-20)
[2017-09-28 07:14] VITALS: BP 101/57
[2017-09-28 11:57] VITALS: BP 109/58
[2017-09-28 15:39] VITALS: BP 120/64
[2017-09-28 19:24] VITALS: BP 115/58
[2017-09-28 23:00] VITALS: BP 101/69
[2017-09-29 03:30] VITALS: BP 117/55
[2017-09-29 06:15] LABS: CHLORIDE 107 MEQ/L (99-109); CREATININE 1.5 MG/DL (0.6-1.3); GFR ESTIMATE (CALCULATED) 49 mL/min/ (58.99-99999); GLUCOSE 140 mg/dL (70-99); POTASSIUM 3.7 MEQ/L (3.7-5.4); SODIUM 140 MEQ/L (136-147); UREA NITROGEN (BUN) 29 mg/dL (9-23)
[2017-09-29 06:31] LABS: HEMATOCRIT 27.9 % (38.0-50.0); HEMOGLOBIN 8.8 G/DL (12.5-16.6); MCH 27.2 PG (29.0-34.0); MCHC 31.5 G/DL (30.0-36.0); MCV 86.4 FL (86-99); PLATELET COUNT 201 K/uL (156-360); RBC DIS.WIDTH-CV 16.6 % (11.8-14.6); RED BLOOD COUNT 3.23 M/uL (4.00-5.50)
[2017-09-29 08:25] VITALS: BP 113/60
[2017-09-29 12:30] VITALS: BP 106/59
[2017-09-29 16:49] VITALS: BP 127/70
[2017-09-29 19:15] VITALS: BP 130/68
[2017-09-29 23:00] VITALS: BP 127/68
[2017-09-30 04:00] VITALS: BP 130/66
[2017-09-30 05:48] LABS: HEMATOCRIT 29.2 % (38.0-50.0); HEMOGLOBIN 9.2 G/DL (12.5-16.6); MCH 27.4 PG (29.0-34.0); MCHC 31.5 G/DL (30.0-36.0); MCV 86.9 FL (86-99); NRBC (%) 0.2 /100 WBC (0-0); PLATELET COUNT 205 K/uL (156-360); RBC DIS.WIDTH-CV 16.8 % (11.8-14.6); RBC DIS.WIDTH-SD 52.4 % (39-53); RED BLOOD COUNT 3.36 M/uL (4.00-5.50)
[2017-09-30 06:10] LABS: CHLORIDE 108 MEQ/L (99-109); CREATININE 1.4 MG/DL (0.6-1.3); GFR ESTIMATE (CALCULATED) 53 mL/min/ (58.99-99999); GLUCOSE 108 mg/dL (70-99); POTASSIUM 3.9 MEQ/L (3.7-5.4); SODIUM 142 MEQ/L (136-147); UREA NITROGEN (BUN) 26 mg/dL (9-23)
[2017-09-30 08:00] VITALS: BP 128/64
[2017-09-30 12:00] VITALS: BP 122/61
[2017-09-30 17:03] VITALS: BP 118/59
[2017-09-30 19:30] VITALS: BP 143/74
[2017-09-30 22:30] VITALS: BP 114/65
[2017-10-01 03:30] VITALS: BP 134/66
[2017-10-01 06:23] LABS: HEMOGLOBIN 9.3 G/DL (12.5-16.6); MCH 26.9 PG (29.0-34.0); MCV 86.7 FL (86-99); NRBC (%) 0.1 /100 WBC (0-0); PLATELET COUNT 219 K/uL (156-360); RBC DIS.WIDTH-CV 16.8 % (11.8-14.6); RBC DIS.WIDTH-SD 51.8 % (39-53); RED BLOOD COUNT 3.46 M/uL (4.00-5.50); WHITE BLOOD COUNT 15.3 K/uL (4.1-10.2)
[2017-10-01 06:59] LABS: CHLORIDE 105 MEQ/L (99-109); CREATININE 1.4 MG/DL (0.6-1.3); GFR ESTIMATE (CALCULATED) 53 mL/min/ (58.99-99999); GLUCOSE 97 mg/dL (70-99); POTASSIUM 4.1 MEQ/L (3.7-5.4); SODIUM 140 MEQ/L (136-147); UREA NITROGEN (BUN) 23 mg/dL (9-23)
[2017-10-01 09:00] VITALS: BP 115/76
[2017-10-01 12:07] VITALS: BP 102/55
[2017-10-01 16:09] VITALS: BP 108/62
[2017-10-01 19:45] VITALS: BP 111/66; BP 116/56
[2017-10-01 22:30] VITALS: BP 125/69
[2017-10-02 03:30] VITALS: BP 125/68
[2017-10-02 06:14] LABS: HEMATOCRIT 26.2 % (38.0-50.0); HEMOGLOBIN 8.2 G/DL (12.5-16.6); MCHC 31.3 G/DL (30.0-36.0); MCV 86.2 FL (86-99); PLATELET COUNT 194 K/uL (156-360); RBC DIS.WIDTH-CV 17.1 % (11.8-14.6); RBC DIS.WIDTH-SD 53.3 % (39-53); RED BLOOD COUNT 3.04 M/uL (4.00-5.50); WHITE BLOOD COUNT 12.4 K/uL (4.1-10.2)
[2017-10-02 06:57] LABS: CHLORIDE 104 MEQ/L (99-109); CREATININE 1.5 MG/DL (0.6-1.3); GFR ESTIMATE (CALCULATED) 49 mL/min/ (58.99-99999); POTASSIUM 4.4 MEQ/L (3.7-5.4); SODIUM 137 MEQ/L (136-147); UREA NITROGEN (BUN) 26 mg/dL (9-23)
[2017-10-02 07:00] LABS: GLUCOSE 176 mg/dL (70-99)
[2017-10-02 09:21] VITALS: BP 102/58
[2017-10-02] MEDS ORDERED: LISINOPRIL2.5 MG PO (11:06)
[2017-10-02] MEDS ORDERED: LYRICA75 MG PO (11:08)
[2017-10-02 11:46] VITALS: BP 99/54
[2017-10-02 15:21] VITALS: BP 111/56
== END 2017-10-02 15:39 | DRG 226 ==
LOC: EME 19:03 → ENRESERV 20:08 → CATH 20:46 → EME 20:46 → 4WEST 21:13 → ENRESERV 09-23 14:08 → 4EAST 09-23 21:07 → ENPENDDIS 10-02 → 4EAST 10-02 15:39
PROVIDERS: Emergency Medicine; Family Medicine; Internal Medicine; Internal Medicine Cardiovascular Disease; Surgery
DX: I44.2 Atrioventricular block, complete (principal); J43.9 Emphysema, unspecified; I82.B12 Acute embolism and thrombosis of left subclavian vein; N18.4 Chronic kidney disease, stage 4 (severe); L89.613 Pressure ulcer of right heel, stage 3; I13.0 Hypertensive heart and chronic kidney disease with heart failure and stage 1 through stage 4 chronic kidney disease, or unspecified chronic kidney disease; I25.10 Atherosclerotic heart disease of native coronary artery without angina pectoris; I50.9 Heart failure, unspecified; R09.02 Hypoxemia; I49.5 Sick sinus syndrome; N18.9 Chronic kidney disease, unspecified; I25.5 Ischemic cardiomyopathy; F32.9 Major depressive disorder, single episode, unspecified; D63.8 Anemia in other chronic diseases classified elsewhere; H40.9 Unspecified glaucoma; K59.00 Constipation, unspecified; A41.9 Sepsis, unspecified organism; R13.10 Dysphagia, unspecified; E78.5 Hyperlipidemia, unspecified; F03.90 Unspecified dementia, unspecified severity, without behavioral disturbance, psychotic disturbance, mood disturbance, and anxiety; I45.2 Bifascicular block; E11.51 Type 2 diabetes mellitus with diabetic peripheral angiopathy without gangrene; I48.91 Unspecified atrial fibrillation; E11.22 Type 2 diabetes mellitus with diabetic chronic kidney disease; J69.0 Pneumonitis due to inhalation of food and vomit; H54.40 Blindness, one eye, unspecified eye; Z90.49 Acquired absence of other specified parts of digestive tract; Z87.01 Personal history of pneumonia (recurrent); Z95.1 Presence of aortocoronary bypass graft; Z79.4 Long term (current) use of insulin; Z91.19 Patient's noncompliance with other medical treatment and regimen; Z89.411 Acquired absence of right great toe; I25.2 Old myocardial infarction; Z82.3 Family history of stroke; Z99.81 Dependence on supplemental oxygen; M86.9 Osteomyelitis, unspecified; I27.20 Pulmonary hypertension, unspecified; I69.30 Unspecified sequelae of cerebral infarction; I44.7 Left bundle-branch block, unspecified; Z87.891 Personal history of nicotine dependence
CPT/HCPCS: 71045; 71250; 73700; 74176; 80047; 80048; 80053; 80202; 81003; 82330; 82948; 83036; 83605; 83735; 84100; 84484; 85025; 85027; 87040; 87086; 87502; 87641; 92526 GN; 92610 GN; 93005; 94640; 94640 76; 94760; 94799; 97530 GP; 99202; 99281; 99285; C1750; C1766; C1769; C1882; C1887; C1892; C1894; C1898; C1899; C1900; J1200; J1265; J1644; J1815; J2250; J2543; J3010; J3370; J7030; J7050; J7512; S0020

== ENCOUNTER 2017-11-26 17:39 | Emergency (ER) | payer OTHER ==
[~2017-11-26] VITALS: Ht 180.3 cm; Wt 77.1 kg
[2017-11-26 18:43] LABS: HEMATOCRIT 35.6 % (38.0-50.0); HEMOGLOBIN 11.6 G/DL (12.5-16.6); MCH 28.9 PG (29.0-34.0); MCHC 32.6 G/DL (30.0-36.0); MCV 88.6 FL (86-99); PLATELET COUNT 155 K/uL (156-360); RBC DIS.WIDTH-CV 19.6 % (11.8-14.6); RBC DIS.WIDTH-SD 63.3 % (39-53); RED BLOOD COUNT 4.02 M/uL (4.00-5.50); WHITE BLOOD COUNT 11.3 K/uL (4.1-10.2)
[2017-11-26 18:55] LABS: CHLORIDE 111 mEq/L (99-109); POTASSIUM 4.1 mEq/L (3.7-5.4); SODIUM 140 mEq/L (136-147)
[2017-11-26 18:56] LABS: GLUCOSE 134 mg/dL (70-99)
[2017-11-26 18:59] LABS: CREATININE 1.1 mg/dL (0.6-1.3); GFR ESTIMATE (CALCULATED) > 59 mL/min/ (58.99-99999)
[2017-11-26 19:00] LABS: UREA NITROGEN (BUN) 26 mg/dL (9-23)
[2017-11-26 19:19] LABS: TROP-I INTERPRETATION NEGATIVE; TROPONIN-I 0.04 ng/mL (0.0-0.30)
[2017-11-26] MEDS ORDERED: PREDNISONE50 MG PO (19:43)
[2017-11-26] MEDS ORDERED: LEVAQUIN750 MG PO (19:43)
[2017-11-26 19:52] VITALS: BP 120/72
== END 2017-11-26 19:54 | disposition home or self-care (01) ==
LOC: EME 17:39
DX: J69.0 Pneumonitis due to inhalation of food and vomit (principal); I44.0 Atrioventricular block, first degree; I49.1 Atrial premature depolarization; I45.10 Unspecified right bundle-branch block; I44.5 Left posterior fascicular block; R94.31 Abnormal electrocardiogram [ECG] [EKG]; E11.22 Type 2 diabetes mellitus with diabetic chronic kidney disease; I12.9 Hypertensive chronic kidney disease with stage 1 through stage 4 chronic kidney disease, or unspecified chronic kidney disease; N18.9 Chronic kidney disease, unspecified; J44.9 Chronic obstructive pulmonary disease, unspecified; I50.9 Heart failure, unspecified; I25.2 Old myocardial infarction; F03.90 Unspecified dementia, unspecified severity, without behavioral disturbance, psychotic disturbance, mood disturbance, and anxiety; F32.9 Major depressive disorder, single episode, unspecified; Z79.82 Long term (current) use of aspirin; Z79.4 Long term (current) use of insulin; Z79.51 Long term (current) use of inhaled steroids; Z86.73 Personal history of transient ischemic attack (TIA), and cerebral infarction without residual deficits; Z87.891 Personal history of nicotine dependence; Z95.810 Presence of automatic (implantable) cardiac defibrillator; Z95.1 Presence of aortocoronary bypass graft; Z85.9 Personal history of malignant neoplasm, unspecified; Z87.19 Personal history of other diseases of the digestive system
CPT/HCPCS: 71046; 80048; 84484; 85027; 93005; 94640; 99281; 99284; J7512

== ENCOUNTER 2017-11-30 08:59 | Inpatient (IN) | payer OTHER ==
[~2017-11-30] VITALS: Ht 180.3 cm; Wt 79.4 kg
[~2017-11-30 08:59] MED LIST changes: +LEVAQUIN750 MG PO; +PREDNISONE50 MG PO
[2017-11-30 09:34] LABS: BASOPHIL (%) 0.3 % (0-1); EOSINOPHIL (%) 0.5 % (0-5); HEMATOCRIT 36.9 % (38.0-50.0); IMMATURE GRANULOCYTE (%) 0.3 % (0.0-0.7); LYMPHOCYTE (%) 24.6 % (15-42); LYMPHOCYTE COUNT 1.9 K/uL (1.0-2.8); MCH 28.8 PG (29.0-34.0); MCHC 32.5 G/DL (30.0-36.0); MCV 88.7 FL (86-99); MONOCYTE (%) 7.1 % (3-12); MONOCYTE COUNT 0.6 K/uL (0-0.8); NEUTROPHIL (%) 67.2 % (45-76); NEUTROPHIL COUNT 5.3 K/uL (1.8-6.4); PLATELET COUNT 160 K/uL (156-360); RBC DIS.WIDTH-CV 19.6 % (11.8-14.6); RBC DIS.WIDTH-SD 63.6 % (39-53); RED BLOOD COUNT 4.16 M/uL (4.00-5.50); WHITE BLOOD COUNT 7.9 K/uL (4.1-10.2)
[2017-11-30 09:40] LABS: INTER. NORMALIZED RATIO 1.2
[2017-11-30 09:42] LABS: PTT 28.9 SEC (25-37)
[2017-11-30 09:44] LABS: CHLORIDE 111 mEq/L (99-109); POTASSIUM 3.9 mEq/L (3.7-5.4); SODIUM 143 mEq/L (136-147)
[2017-11-30 09:45] LABS: GLUCOSE 153 mg/dL (70-99)
[2017-11-30 09:49] LABS: CREATININE 1.2 mg/dL (0.6-1.3); GFR ESTIMATE (CALCULATED) > 59 mL/min/ (58.99-99999)
[2017-11-30 09:50] LABS: UREA NITROGEN (BUN) 35 mg/dL (9-23)
[2017-11-30 09:56] LABS: TROP-I INTERPRETATION NEGATIVE; TROPONIN-I 0.05 ng/mL (0.0-0.30)
[2017-11-30] MEDS ORDERED: LEVAQUIN750 MG PO (11:31)
[2017-11-30] MEDS ORDERED: PREDNISONE50 MG PO (11:33)
[2017-11-30] MEDS ORDERED: IRON325 M1 PO (11:34)
[2017-11-30 20:00] VITALS: BP 122/69
[2017-12-01] VITALS (7 sets, daily range): BP systolic 111–130; BP diastolic 59–87
[2017-12-02 06:00] LABS: BASOPHIL (%) 0 % (0-1); EOSINOPHIL (%) 0 % (0-5); HEMATOCRIT 30.4 % (38.0-50.0); IMMATURE GRANULOCYTE (%) 0.9 % (0.0-0.7); LYMPHOCYTE (%) 24.4 % (15-42); LYMPHOCYTE COUNT 2.1 K/uL (1.0-2.8); MCH 27.5 PG (29.0-34.0); MCHC 31.3 G/DL (30.0-36.0); MCV 88.1 FL (86-99); MONOCYTE (%) 5.6 % (3-12); MONOCYTE COUNT 0.5 K/uL (0-0.8); NEUTROPHIL (%) 69.1 % (45-76); PLATELET COUNT 146 K/uL (156-360); RBC DIS.WIDTH-CV 19.1 % (11.8-14.6); RBC DIS.WIDTH-SD 61.9 % (39-53); RED BLOOD COUNT 3.45 M/uL (4.00-5.50); WHITE BLOOD COUNT 8.7 K/uL (4.1-10.2)
[2017-12-02 06:01] LABS: HEMOGLOBIN 9.5 G/DL (12.5-16.6)
[2017-12-02 06:32] LABS: CHLORIDE 113 MEQ/L (99-109); GFR ESTIMATE (CALCULATED) > 59 mL/min/ (58.99-99999); POTASSIUM 4.4 MEQ/L (3.7-5.4); SODIUM 142 MEQ/L (136-147); UREA NITROGEN (BUN) 31 mg/dL (9-23)
[2017-12-02 06:35] LABS: GLUCOSE 99 mg/dL (70-99)
[2017-12-02 08:05] VITALS: BP 109/59
[2017-12-02 12:52] VITALS: BP 116/69
[2017-12-02 12:55] VITALS: BP 95/44
[2017-12-02 16:06] VITALS: BP 138/81
[2017-12-02 20:17] VITALS: BP 142/78
[2017-12-03] VITALS: BP 142/83
[2017-12-03 04:26] VITALS: BP 138/76
[2017-12-03 05:38] LABS: BASOPHIL (%) 0.3 % (0-1); EOSINOPHIL (%) 0.2 % (0-5); HEMOGLOBIN 10.5 G/DL (12.5-16.6); LYMPHOCYTE (%) 22.4 % (15-42); LYMPHOCYTE COUNT 2.6 K/uL (1.0-2.8); MCH 28.3 PG (29.0-34.0); MCHC 31.8 G/DL (30.0-36.0); MCV 88.9 FL (86-99); MONOCYTE (%) 6.1 % (3-12); MONOCYTE COUNT 0.7 K/uL (0-0.8); NEUTROPHIL COUNT 7.9 K/uL (1.8-6.4); NRBC (%) 0.4 /100 WBC (0-0); PLATELET COUNT 159 K/uL (156-360); RBC DIS.WIDTH-CV 19.5 % (11.8-14.6); RED BLOOD COUNT 3.71 M/uL (4.00-5.50); WHITE BLOOD COUNT 11.4 K/uL (4.1-10.2)
[2017-12-03 06:01] LABS: CHLORIDE 110 MEQ/L (99-109); CREATININE 1.1 MG/DL (0.6-1.3); GFR ESTIMATE (CALCULATED) > 59 mL/min/ (58.99-99999); GLUCOSE 75 mg/dL (70-99); SODIUM 144 MEQ/L (136-147); UREA NITROGEN (BUN) 29 mg/dL (9-23)
[2017-12-03 06:04] LABS: POTASSIUM 3.4 MEQ/L (3.7-5.4)
[2017-12-03 07:15] VITALS: BP 133/80
[2017-12-03 11:10] VITALS: BP 120/67
[2017-12-03 15:15] VITALS: BP 116/74
[2017-12-03] MEDS ORDERED: AMOX TR-K CLV1 EAC4 PO (17:36)
[2017-12-03] MEDS ORDERED: PREDNISONE50 MG PO (17:38)
== END 2017-12-03 18:28 | disposition home health service (06) | DRG 177 ==
LOC: EME 08:59 → EDOF 12:13 → 4SOUTH 12:13 → CANRESERV 12:14 → ENRESERV 12:14 → CANRESERV 13:17 → ENRESERV 13:17 → EDOF 13:20 → ENRESERV 13:29 → 4SOUTH 15:44
PROVIDERS: Emergency Medicine; Internal Medicine
DX: J69.0 Pneumonitis due to inhalation of food and vomit (principal); L89.613 Pressure ulcer of right heel, stage 3; J44.1 Chronic obstructive pulmonary disease with (acute) exacerbation; I13.0 Hypertensive heart and chronic kidney disease with heart failure and stage 1 through stage 4 chronic kidney disease, or unspecified chronic kidney disease; I44.2 Atrioventricular block, complete; E78.5 Hyperlipidemia, unspecified; G30.9 Alzheimer's disease, unspecified; F02.80 Dementia in other diseases classified elsewhere, unspecified severity, without behavioral disturbance, psychotic disturbance, mood disturbance, and anxiety; I25.5 Ischemic cardiomyopathy; I25.10 Atherosclerotic heart disease of native coronary artery without angina pectoris; N18.2 Chronic kidney disease, stage 2 (mild); E11.22 Type 2 diabetes mellitus with diabetic chronic kidney disease; E11.42 Type 2 diabetes mellitus with diabetic polyneuropathy; E11.51 Type 2 diabetes mellitus with diabetic peripheral angiopathy without gangrene; E11.621 Type 2 diabetes mellitus with foot ulcer; L89.620 Pressure ulcer of left heel, unstageable; I48.91 Unspecified atrial fibrillation; I50.9 Heart failure, unspecified; R13.10 Dysphagia, unspecified; L97.509 Non-pressure chronic ulcer of other part of unspecified foot with unspecified severity; M72.0 Palmar fascial fibromatosis [Dupuytren]; R09.02 Hypoxemia; H54.61 Unqualified visual loss, right eye, normal vision left eye; Z86.73 Personal history of transient ischemic attack (TIA), and cerebral infarction without residual deficits; Z87.01 Personal history of pneumonia (recurrent); Z87.891 Personal history of nicotine dependence; I25.2 Old myocardial infarction; Z79.4 Long term (current) use of insulin; Z89.411 Acquired absence of right great toe; Z79.51 Long term (current) use of inhaled steroids; Z89.421 Acquired absence of other right toe(s); Z91.19 Patient's noncompliance with other medical treatment and regimen; Z95.0 Presence of cardiac pacemaker; Z95.1 Presence of aortocoronary bypass graft; Z90.01 Acquired absence of eye; Z79.82 Long term (current) use of aspirin; Z83.3 Family history of diabetes mellitus; Z82.49 Family history of ischemic heart disease and other diseases of the circulatory system
CPT/HCPCS: 71045; 74230; 80048; 82272; 82948; 83880; 84484; 85025; 85610; 85730; 87040; 92526 GN; 92610 GN; 92611 GN; 93005; 94640; 94640 76; 94760; 94799; 99202; 99281; 99285; G8996 GN CL; G8997 GN CL; G8998 GN CL; J0295; J0456; J0696; J1644; J1815; J7030; J7050; J7512

== ENCOUNTER 2017-12-09 17:53 | Inpatient (IN) | payer OTHER ==
[~2017-12-09] VITALS: Ht 180.3 cm; Wt 78.4 kg
[~2017-12-09 17:53] MED LIST changes: +AMOX TR-K CLV1 EAC4 PO; +IRON325 M1 PO
[2017-12-09] MEDS ORDERED: AUGMENTIN875 MG PO (18:47)
[2017-12-09] MEDS ORDERED: TYLENOL EXTRA500 MG PO (18:49)
[2017-12-09] MEDS ORDERED: COREG3.125 M1 PO (18:49)
[2017-12-09] MEDS ORDERED: NOVOLOG PE100 UNITS/ SC (18:51)
[2017-12-09 19:20] LABS: BASOPHIL (%) 0.1 % (0-1); EOSINOPHIL (%) 0.4 % (0-5); EOSINOPHIL COUNT 0.1 K/uL (0-0.3); HEMATOCRIT 34.5 % (38.0-50.0); HEMOGLOBIN 11.1 G/DL (12.5-16.6); IMMATURE GRANULOCYTE (%) 2.5 % (0.0-0.7); LYMPHOCYTE (%) 24.9 % (15-42); MCHC 32.2 G/DL (30.0-36.0); MCV 90.1 FL (86-99); MONOCYTE (%) 4.8 % (3-12); MONOCYTE COUNT 0.6 K/uL (0-0.8); NEUTROPHIL (%) 67.3 % (45-76); NEUTROPHIL COUNT 8.2 K/uL (1.8-6.4); NRBC (%) 0.7 /100 WBC (0-0); PLATELET COUNT 163 K/uL (156-360); RBC DIS.WIDTH-CV 20.4 % (11.8-14.6); RBC DIS.WIDTH-SD 64.5 % (39-53); RED BLOOD COUNT 3.83 M/uL (4.00-5.50); WHITE BLOOD COUNT 12.2 K/uL (4.1-10.2)
[2017-12-09 19:26] LABS: CHLORIDE 110 mEq/L (99-109); SODIUM 144 mEq/L (136-147)
[2017-12-09 19:27] LABS: MAGNESIUM 2.1 mg/dL (1.3-2.7)
[2017-12-09 19:28] LABS: GLUCOSE 186 mg/dL (70-99)
[2017-12-09 19:32] LABS: CREATININE 1.2 mg/dL (0.6-1.3); GFR ESTIMATE (CALCULATED) > 59 mL/min/ (58.99-99999)
[2017-12-09 19:33] LABS: UREA NITROGEN (BUN) 36 mg/dL (9-23)
[2017-12-09 19:41] LABS: TROP-I INTERPRETATION NEGATIVE; TROPONIN-I 0.05 ng/mL (0.0-0.30)
[2017-12-09 20:33] VITALS: BP 133/76
[2017-12-10 00:05] VITALS: BP 136/72
[2017-12-10 04:02] VITALS: BP 148/78
[2017-12-10 06:11] LABS: HEMATOCRIT 37.7 % (38.0-50.0); HEMOGLOBIN 11.6 G/DL (12.5-16.6); MCHC 30.8 G/DL (30.0-36.0); MCV 91.1 FL (86-99); NRBC (%) 0.6 /100 WBC (0-0); RBC DIS.WIDTH-CV 20.9 % (11.8-14.6); RBC DIS.WIDTH-SD 66.9 % (39-53); RED BLOOD COUNT 4.14 M/uL (4.00-5.50)
[2017-12-10 06:12] LABS: PLATELET COUNT 232 K/uL (156-360)
[2017-12-10 06:28] LABS: CHLORIDE 112 MEQ/L (99-109); CREATININE 1.1 MG/DL (0.6-1.3); GFR ESTIMATE (CALCULATED) > 59 mL/min/ (58.99-99999); POTASSIUM 3.9 MEQ/L (3.7-5.4); SODIUM 148 MEQ/L (136-147); UREA NITROGEN (BUN) 35 mg/dL (9-23)
[2017-12-10 06:32] LABS: GLUCOSE 41 mg/dL (70-99)
[2017-12-10 07:48] VITALS: BP 129/74
[2017-12-10 10:05] LABS: APPEARANCE CLEAR ((CLEAR)); BILIRUBIN NEGATIVE; BLOOD NEGATIVE; COLOR YELLOW ((YELLOW)); GLUCOSE (STRIP) 50; KETONES NEGATIVE; LEUKOCYTES NEGATIVE; NITRITE NEGATIVE; PROTEIN (STRIP) 100; SPECIFIC GRAVITY 1.027 (1.000-1.030); UROBILINOGEN 0.2 MG/DL (0.2-1.0)
[2017-12-10 10:10] LABS: BACTERIA NONE SEEN /HPF; EPITHELIAL CELLS RARE /HPF; MUCUS NONE SEEN /LPF; RED BLOOD CELLS 0-5 /HPF (0-5); WHITE BLOOD CELLS 0-5 /HPF (0-5)
[2017-12-10 12:04] VITALS: BP 122/69
[2017-12-10 15:45] VITALS: BP 127/70
[2017-12-10 19:54] VITALS: BP 144/66
[2017-12-11] VITALS (8 sets, daily range): BP systolic 134–155; BP diastolic 70–83
[2017-12-11 06:32] LABS: HEMATOCRIT 33.3 % (38.0-50.0); HEMOGLOBIN 10.4 G/DL (12.5-16.6); MCH 28.3 PG (29.0-34.0); MCHC 31.2 G/DL (30.0-36.0); MCV 90.7 FL (86-99); NRBC (%) 0.4 /100 WBC (0-0); PLAT.SUFFICIENCY DECREASED; RBC DIS.WIDTH-CV 20.6 % (11.8-14.6); RBC DIS.WIDTH-SD 66.4 % (39-53); RED BLOOD COUNT 3.67 M/uL (4.00-5.50)
[2017-12-11 06:34] LABS: PLATELET COUNT 142 K/uL (156-360)
[2017-12-11 06:42] LABS: CHLORIDE 111 MEQ/L (99-109); CREATININE 1.2 MG/DL (0.6-1.3); GFR ESTIMATE (CALCULATED) > 59 mL/min/ (58.99-99999); POTASSIUM 4.3 MEQ/L (3.7-5.4); SODIUM 143 MEQ/L (136-147); UREA NITROGEN (BUN) 27 mg/dL (9-23)
[2017-12-11 06:43] LABS: GLUCOSE 157 mg/dL (70-99)
[2017-12-12 04:16] VITALS: BP 121/76
[2017-12-12 05:31] LABS: HEMATOCRIT 33.2 % (38.0-50.0); HEMOGLOBIN 10.5 G/DL (12.5-16.6); MCH 28.7 PG (29.0-34.0); MCHC 31.6 G/DL (30.0-36.0); MCV 90.7 FL (86-99); PLATELET COUNT 154 K/uL (156-360); RBC DIS.WIDTH-CV 20.7 % (11.8-14.6); RBC DIS.WIDTH-SD 66.6 % (39-53); RED BLOOD COUNT 3.66 M/uL (4.00-5.50); WHITE BLOOD COUNT 11.5 K/uL (4.1-10.2)
[2017-12-12 07:30] VITALS: BP 125/81
[2017-12-12 15:56] VITALS: BP 136/67
[2017-12-12 20:26] VITALS: BP 138/71
[2017-12-12 23:55] VITALS: BP 142/75
[2017-12-13 03:44] VITALS: BP 133/72
[2017-12-13 06:32] LABS: HEMATOCRIT 32.9 % (38.0-50.0); HEMOGLOBIN 10.3 G/DL (12.5-16.6); MCH 28.2 PG (29.0-34.0); MCHC 31.3 G/DL (30.0-36.0); MCV 90.1 FL (86-99); PLATELET COUNT 153 K/uL (156-360); RBC DIS.WIDTH-CV 20.2 % (11.8-14.6); RBC DIS.WIDTH-SD 65.6 % (39-53); RED BLOOD COUNT 3.65 M/uL (4.00-5.50); WHITE BLOOD COUNT 10.5 K/uL (4.1-10.2)
[2017-12-13 07:17] VITALS: BP 144/82
[2017-12-13 11:17] VITALS: BP 139/70
[2017-12-13 15:58] VITALS: BP 147/78
[2017-12-13 19:24] VITALS: BP 131/75
[2017-12-13 23:38] VITALS: BP 145/70
[2017-12-14 03:38] VITALS: BP 133/71
[2017-12-14 05:46] LABS: HEMATOCRIT 34.5 % (38.0-50.0); HEMOGLOBIN 10.8 G/DL (12.5-16.6); MCH 28.4 PG (29.0-34.0); MCHC 31.3 G/DL (30.0-36.0); MCV 90.8 FL (86-99); PLATELET COUNT 161 K/uL (156-360); RBC DIS.WIDTH-CV 20.2 % (11.8-14.6); RBC DIS.WIDTH-SD 65.4 % (39-53); WHITE BLOOD COUNT 10.3 K/uL (4.1-10.2)
[2017-12-14 06:05] LABS: CHLORIDE 108 MEQ/L (99-109); CREATININE 1.4 MG/DL (0.6-1.3); GFR ESTIMATE (CALCULATED) 53 mL/min/ (58.99-99999); GLUCOSE 146 mg/dL (70-99); POTASSIUM 4.5 MEQ/L (3.7-5.4); SODIUM 141 MEQ/L (136-147); UREA NITROGEN (BUN) 23 mg/dL (9-23)
[2017-12-14 08:20] VITALS: BP 142/77
[2017-12-14 15:44] VITALS: BP 127/72
[2017-12-15] VITALS: BP 137/70
[2017-12-15 08:00] VITALS: BP 118/72
[2017-12-15 15:31] VITALS: BP 127/71
[2017-12-15 23:32] VITALS: BP 131/65
[2017-12-16 08:13] VITALS: BP 150/92
[2017-12-16 16:27] VITALS: BP 134/63
[2017-12-17 00:18] VITALS: BP 137/64
[2017-12-17 07:36] VITALS: BP 133/67
== END 2017-12-17 14:55 | DRG 177 ==
LOC: EME 17:53 → EDOF 19:12 → 5SOUTH 19:12 → ENRESERV 19:29 → 5SOUTH 20:15
PROVIDERS: Hospitalist; Physician Assistant; Physician Assistant Medical
DX: J69.0 Pneumonitis due to inhalation of food and vomit (principal); J96.01 Acute respiratory failure with hypoxia; J44.1 Chronic obstructive pulmonary disease with (acute) exacerbation; L89.613 Pressure ulcer of right heel, stage 3; L89.620 Pressure ulcer of left heel, unstageable; R13.10 Dysphagia, unspecified; I13.0 Hypertensive heart and chronic kidney disease with heart failure and stage 1 through stage 4 chronic kidney disease, or unspecified chronic kidney disease; I50.22 Chronic systolic (congestive) heart failure; N18.9 Chronic kidney disease, unspecified; E11.22 Type 2 diabetes mellitus with diabetic chronic kidney disease; D69.6 Thrombocytopenia, unspecified; E11.42 Type 2 diabetes mellitus with diabetic polyneuropathy; E11.51 Type 2 diabetes mellitus with diabetic peripheral angiopathy without gangrene; E11.36 Type 2 diabetes mellitus with diabetic cataract; I25.5 Ischemic cardiomyopathy; D64.9 Anemia, unspecified; E78.5 Hyperlipidemia, unspecified; F03.90 Unspecified dementia, unspecified severity, without behavioral disturbance, psychotic disturbance, mood disturbance, and anxiety; H40.9 Unspecified glaucoma; I25.10 Atherosclerotic heart disease of native coronary artery without angina pectoris; F32.9 Major depressive disorder, single episode, unspecified; H54.62 Unqualified visual loss, left eye, normal vision right eye; Z99.81 Dependence on supplemental oxygen; I69.391 Dysphagia following cerebral infarction; I25.2 Old myocardial infarction; Z95.1 Presence of aortocoronary bypass graft; Z95.810 Presence of automatic (implantable) cardiac defibrillator; Z91.11 Patient's noncompliance with dietary regimen; Z89.411 Acquired absence of right great toe; Z87.01 Personal history of pneumonia (recurrent); Z87.891 Personal history of nicotine dependence; Z79.4 Long term (current) use of insulin; Z79.82 Long term (current) use of aspirin
CPT/HCPCS: 71046; 80048; 81003; 82948; 83605; 83735; 84484; 85025; 85027; 87040; 87502; 92526 GN; 92610 GN; 93005; 94640; 94640 76; 94667; 94668; 94799; 97530 GP; 99202; 99281; 99285; A6214; J0696; J1650; J1815; J2543; J7030; J7050; J7512

== ENCOUNTER 2018-01-16 10:28 | Emergency (ER) | payer OTHER ==
[~2018-01-16] VITALS: Ht 180.3 cm; Wt 76.8 kg
[~2018-01-16 10:28] MED LIST changes: +TYLENOL EXTRA500 MG PO
[2018-01-16 10:57] LABS: HEMATOCRIT 37.6 % (38.0-50.0); HEMOGLOBIN 12.3 G/DL (12.5-16.6); MCH 29.2 PG (29.0-34.0); MCHC 32.7 G/DL (30.0-36.0); MCV 89.3 FL (86-99); PLATELET COUNT 155 K/uL (156-360); RBC DIS.WIDTH-CV 17.2 % (11.8-14.6); RBC DIS.WIDTH-SD 56.1 % (39-53); RED BLOOD COUNT 4.21 M/uL (4.00-5.50)
[2018-01-16 11:07] LABS: CHLORIDE 111 mEq/L (99-109); POTASSIUM 4.2 mEq/L (3.7-5.4); SODIUM 142 mEq/L (136-147)
[2018-01-16 11:09] LABS: GLUCOSE 133 mg/dL (70-99)
[2018-01-16 11:13] LABS: CREATININE 1.4 mg/dL (0.6-1.3); GFR ESTIMATE (CALCULATED) 53 mL/min/ (58.99-99999)
[2018-01-16 11:14] LABS: UREA NITROGEN (BUN) 32 mg/dL (9-23)
[2018-01-16 12:11] LABS: TROP-I INTERPRETATION NEGATIVE; TROPONIN-I 0.07 ng/mL (0.0-0.30)
[2018-01-16] MEDS ORDERED: AUGMENTIN875 MG PO (14:41)
[2018-01-16 15:30] VITALS: BP 132/78
== END 2018-01-16 16:12 | disposition home or self-care (01) ==
LOC: EME 10:28
DX: R06.00 Dyspnea, unspecified (principal); T17.920A Food in respiratory tract, part unspecified causing asphyxiation, initial encounter; Z87.01 Personal history of pneumonia (recurrent); R53.1 Weakness; J44.9 Chronic obstructive pulmonary disease, unspecified; I13.0 Hypertensive heart and chronic kidney disease with heart failure and stage 1 through stage 4 chronic kidney disease, or unspecified chronic kidney disease; E11.22 Type 2 diabetes mellitus with diabetic chronic kidney disease; N18.9 Chronic kidney disease, unspecified; I50.9 Heart failure, unspecified; I25.2 Old myocardial infarction; F03.90 Unspecified dementia, unspecified severity, without behavioral disturbance, psychotic disturbance, mood disturbance, and anxiety; Z86.73 Personal history of transient ischemic attack (TIA), and cerebral infarction without residual deficits; Z95.1 Presence of aortocoronary bypass graft; Z95.810 Presence of automatic (implantable) cardiac defibrillator; Z79.4 Long term (current) use of insulin; Z79.82 Long term (current) use of aspirin; Z79.52 Long term (current) use of systemic steroids; Z87.891 Personal history of nicotine dependence
CPT/HCPCS: 31720; 71046; 80048; 84484; 85027; 93005; 94640; 99281; 99284; J1940

== ENCOUNTER 2018-01-22 21:30 | Inpatient (IN) | payer OTHER ==
[~2018-01-22] VITALS: Ht 170.2 cm; Wt 80.1 kg
[2018-01-22 22:22] LABS: BASOPHIL (%) 0.4 % (0-1); EOSINOPHIL (%) 2.3 % (0-5); EOSINOPHIL COUNT 0.2 K/uL (0-0.3); IMMATURE GRANULOCYTE (%) 1.1 % (0.0-0.7); LYMPHOCYTE (%) 24.5 % (15-42); LYMPHOCYTE COUNT 2.3 K/uL (1.0-2.8); MCH 28.6 PG (29.0-34.0); MCHC 31.7 G/DL (30.0-36.0); MCV 90.3 FL (86-99); MONOCYTE (%) 7.9 % (3-12); MONOCYTE COUNT 0.7 K/uL (0-0.8); NEUTROPHIL (%) 63.8 % (45-76); NEUTROPHIL COUNT 5.9 K/uL (1.8-6.4); PLATELET COUNT 185 K/uL (156-360); RBC DIS.WIDTH-CV 16.9 % (11.8-14.6); RBC DIS.WIDTH-SD 56.6 % (39-53); RED BLOOD COUNT 4.54 M/uL (4.00-5.50); WHITE BLOOD COUNT 9.3 K/uL (4.1-10.2)
[2018-01-22 22:33] LABS: CHLORIDE 109 mEq/L (99-109); POTASSIUM 4.4 mEq/L (3.7-5.4); SODIUM 144 mEq/L (136-147)
[2018-01-22 22:35] LABS: GLUCOSE 119 mg/dL (70-99)
[2018-01-22 22:38] LABS: CREATININE 1.4 mg/dL (0.6-1.3); GFR ESTIMATE (CALCULATED) 53 mL/min/ (58.99-99999)
[2018-01-22 22:39] LABS: UREA NITROGEN (BUN) 27 mg/dL (9-23)
[2018-01-22 23:21] LABS: ALBUMIN 4.2 g/dL (3.2-4.8)
[2018-01-22 23:23] LABS: TOTAL PROTEIN 7.7 g/dL (6.4-8.3)
[2018-01-22 23:25] LABS: TOTAL BILIRUBIN 0.3 mg/dL (0.0-1.0)
[2018-01-22 23:26] LABS: ALKALINE PHOSPHATASE 63 IU/L (3-129)
[2018-01-22 23:29] LABS: ALT (GPT) 24 IU/L (3-49); AST (GOT) 29 IU/L (2-34); DIRECT BILIRUBIN 0.1 mg/dL (0.0-0.3)
[2018-01-22 23:30] LABS: LIPASE 28 U/L (1.0-51.0)
[2018-01-22 23:35] LABS: TROP-I INTERPRETATION NEGATIVE; TROPONIN-I 0.05 ng/mL (0.0-0.30)
[2018-01-23 02:48] VITALS: BP 160/70
[2018-01-23 06:11] LABS: BASOPHIL (%) 0.4 % (0-1); EOSINOPHIL (%) 0.8 % (0-5); EOSINOPHIL COUNT 0.1 K/uL (0-0.3); HEMATOCRIT 36.1 % (38.0-50.0); HEMOGLOBIN 11.3 G/DL (12.5-16.6); IMMATURE GRANULOCYTE (%) 0.8 % (0.0-0.7); LYMPHOCYTE (%) 22.1 % (15-42); LYMPHOCYTE COUNT 1.6 K/uL (1.0-2.8); MCH 28.1 PG (29.0-34.0); MCHC 31.3 G/DL (30.0-36.0); MCV 89.8 FL (86-99); MONOCYTE (%) 8.8 % (3-12); MONOCYTE COUNT 0.7 K/uL (0-0.8); NEUTROPHIL (%) 67.1 % (45-76); PLATELET COUNT 161 K/uL (156-360); RBC DIS.WIDTH-CV 17.1 % (11.8-14.6); RBC DIS.WIDTH-SD 56.6 % (39-53); RED BLOOD COUNT 4.02 M/uL (4.00-5.50); WHITE BLOOD COUNT 7.4 K/uL (4.1-10.2)
[2018-01-23 06:31] LABS: TROP-I INTERPRETATION NEGATIVE; TROPONIN-I 0.07 ng/mL (0.0-0.30)
[2018-01-23 06:47] LABS: ALBUMIN 3.5 G/DL (3.2-4.8); ALKALINE PHOSPHATASE 49 IU/L (3-129); ALT (GPT) 17 IU/L (3-49); AST (GOT) 22 IU/L (2-34); CHLORIDE 112 MEQ/L (99-109); CREATININE 1.3 MG/DL (0.6-1.3); GFR ESTIMATE (CALCULATED) 58 mL/min/ (58.99-99999); GLUCOSE 118 mg/dL (70-99); POTASSIUM 4.1 MEQ/L (3.7-5.4); SODIUM 141 MEQ/L (136-147); TOTAL BILIRUBIN 0.4 MG/DL (0.0-1.0); TOTAL PROTEIN 5.8 G/DL (6.4-8.3); UREA NITROGEN (BUN) 25 mg/dL (9-23)
[2018-01-23 07:34] VITALS: BP 134/64
[2018-01-23 11:38] LABS: TROP-I INTERPRETATION NEGATIVE; TROPONIN-I 0.09 ng/mL (0.0-0.30)
[2018-01-23 11:49] VITALS: BP 141/63
[2018-01-23 16:24] VITALS: BP 130/73
[2018-01-23 21:12] VITALS: BP 152/75
[2018-01-23 23:57] VITALS: BP 144/67
[2018-01-24 03:32] VITALS: BP 153/80
[2018-01-24 06:50] VITALS: BP 140/62
[2018-01-24 11:35] VITALS: BP 120/68
[2018-01-24 16:18] VITALS: BP 133/63
[2018-01-24 19:51] VITALS: BP 136/67
[2018-01-25] VITALS (8 sets, daily range): BP systolic 108–144; BP diastolic 58–84
[2018-01-25 07:01] LABS: CHLORIDE 107 MEQ/L (99-109); CREATININE 1.4 MG/DL (0.6-1.3); GFR ESTIMATE (CALCULATED) 53 mL/min/ (58.99-99999); GLUCOSE 215 mg/dL (70-99); POTASSIUM 4.2 MEQ/L (3.7-5.4); SODIUM 141 MEQ/L (136-147); UREA NITROGEN (BUN) 30 mg/dL (9-23)
[2018-01-26 04:01] VITALS: BP 132/69
[2018-01-26 07:15] VITALS: BP 103/56
[2018-01-26] MEDS ORDERED: LISINOPRIL2.5 MG PO (07:45)
[2018-01-26] MEDS ORDERED: MEDROL DOSEPAK4 MG PO (07:45)
[2018-01-26] MEDS ORDERED: LACTOBACILLUS1 EACH PO (07:47)
[2018-01-26] MEDS ORDERED: LEVAQUIN500 MG PO (07:47)
[2018-01-26 08:36] LABS: HEMATOCRIT 40.7 % (38.0-50.0); HEMOGLOBIN 12.8 G/DL (12.5-16.6); MCH 27.9 PG (29.0-34.0); MCHC 31.4 G/DL (30.0-36.0); MCV 88.7 FL (86-99); PLATELET COUNT 162 K/uL (156-360); RBC DIS.WIDTH-CV 16.9 % (11.8-14.6); RBC DIS.WIDTH-SD 54.6 % (39-53); RED BLOOD COUNT 4.59 M/uL (4.00-5.50); WHITE BLOOD COUNT 10.1 K/uL (4.1-10.2)
[2018-01-26 10:01] LABS: CHLORIDE 109 MEQ/L (99-109); CREATININE 1.4 MG/DL (0.6-1.3); GFR ESTIMATE (CALCULATED) 53 mL/min/ (58.99-99999); GLUCOSE 308 mg/dL (70-99); POTASSIUM 4.7 MEQ/L (3.7-5.4); SODIUM 143 MEQ/L (136-147); UREA NITROGEN (BUN) 36 mg/dL (9-23)
[2018-01-26 11:06] VITALS: BP 118/67
== END 2018-01-26 16:08 | disposition home or self-care (01) | DRG 177 ==
LOC: EME 21:30 → EDOF 01-23 00:55 → 2EAST 01-23 00:55 → ENRESERV 01-23 00:56 → 2EAST 01-23 02:31
PROVIDERS: Hospitalist; Internal Medicine
DX: J69.0 Pneumonitis due to inhalation of food and vomit (principal); R13.10 Dysphagia, unspecified; I48.0 Paroxysmal atrial fibrillation; I25.5 Ischemic cardiomyopathy; R74.8 Abnormal levels of other serum enzymes; I13.0 Hypertensive heart and chronic kidney disease with heart failure and stage 1 through stage 4 chronic kidney disease, or unspecified chronic kidney disease; N18.3 Chronic kidney disease, stage 3 (moderate); I50.22 Chronic systolic (congestive) heart failure; J44.1 Chronic obstructive pulmonary disease with (acute) exacerbation; E11.22 Type 2 diabetes mellitus with diabetic chronic kidney disease; L89.613 Pressure ulcer of right heel, stage 3; L89.623 Pressure ulcer of left heel, stage 3; E11.42 Type 2 diabetes mellitus with diabetic polyneuropathy; H54.61 Unqualified visual loss, right eye, normal vision left eye; Z89.421 Acquired absence of other right toe(s); L89.620 Pressure ulcer of left heel, unstageable; Z91.19 Patient's noncompliance with other medical treatment and regimen; Z79.4 Long term (current) use of insulin; E78.5 Hyperlipidemia, unspecified; Z86.73 Personal history of transient ischemic attack (TIA), and cerebral infarction without residual deficits; M72.0 Palmar fascial fibromatosis [Dupuytren]; I25.2 Old myocardial infarction; Z87.891 Personal history of nicotine dependence; I25.10 Atherosclerotic heart disease of native coronary artery without angina pectoris; G93.41 Metabolic encephalopathy; Z87.01 Personal history of pneumonia (recurrent); Z95.1 Presence of aortocoronary bypass graft; Z95.810 Presence of automatic (implantable) cardiac defibrillator; F10.11 Alcohol abuse, in remission; Z90.49 Acquired absence of other specified parts of digestive tract; E11.51 Type 2 diabetes mellitus with diabetic peripheral angiopathy without gangrene
CPT/HCPCS: 71045; 71046; 71250; 80048; 80053; 80076; 82948; 83605; 83690; 83880; 84484; 85025; 85027; 87040; 87070; 87205; 92610 GN; 93005; 94010; 94640; 94640 76; 94667; 94668; 97530 GP; 99202; 99281; 99285; J1644; J1815; J1940; J2543; J2930; J7030; J7050; J7512

== ENCOUNTER 2018-01-28 20:32 | Inpatient (IN) | payer OTHER ==
[~2018-01-28] VITALS: Ht 180.3 cm; Wt 72.6 kg
[~2018-01-28 20:32] MED LIST changes: +LACTOBACILLUS1 EACH PO; +LEVAQUIN500 MG PO; +MEDROL DOSEPAK4 MG PO
[2018-01-28 21:04] LABS: HEMATOCRIT 42.6 % (38.0-50.0); HEMOGLOBIN 13.8 G/DL (12.5-16.6); MCH 29.2 PG (29.0-34.0); MCHC 32.4 G/DL (30.0-36.0); MCV 90.3 FL (86-99); NRBC (%) 0.4 /100 WBC (0-0); PLATELET COUNT 199 K/uL (156-360); RBC DIS.WIDTH-SD 56.4 % (39-53); RED BLOOD COUNT 4.72 M/uL (4.00-5.50); WHITE BLOOD COUNT 17.9 K/uL (4.1-10.2)
[2018-01-28 21:14] LABS: CHLORIDE 107 mEq/L (99-109); POTASSIUM 4.4 mEq/L (3.7-5.4); SODIUM 145 mEq/L (136-147)
[2018-01-28 21:17] LABS: GLUCOSE 143 mg/dL (70-99)
[2018-01-28 21:20] LABS: CREATININE 1.4 mg/dL (0.6-1.3); GFR ESTIMATE (CALCULATED) 53 mL/min/ (58.99-99999)
[2018-01-28 21:21] LABS: UREA NITROGEN (BUN) 43 mg/dL (9-23)
[2018-01-28 21:27] LABS: TROP-I INTERPRETATION NEGATIVE; TROPONIN-I 0.05 ng/mL (0.0-0.30)
[2018-01-28] MEDS ORDERED: NOVOLOG100 UNIT/1 SC ×2 (23:05→23:07)
[2018-01-28] MEDS ORDERED: ACIDOPHILUS LA1 EAC1 PO (23:09)
[2018-01-28] MEDS ORDERED: LEVAQUIN500 MG PO (23:10)
[2018-01-28] MEDS ORDERED: ZESTRIL2.5 MG PO (23:11)
[2018-01-28] MEDS ORDERED: MEDROL DOSEPAK4 MG PO (23:12)
[2018-01-29 05:45] LABS: BASOPHIL (%) 0.2 % (0-1); EOSINOPHIL (%) 0 % (0-5); HEMATOCRIT 37.1 % (38.0-50.0); HEMOGLOBIN 12.2 G/DL (12.5-16.6); IMMATURE GRANULOCYTE (%) 1.2 % (0.0-0.7); LYMPHOCYTE (%) 7.4 % (15-42); LYMPHOCYTE COUNT 1.2 K/uL (1.0-2.8); MCHC 32.9 G/DL (30.0-36.0); MCV 88.3 FL (86-99); MONOCYTE (%) 2.4 % (3-12); MONOCYTE COUNT 0.4 K/uL (0-0.8); NEUTROPHIL (%) 88.8 % (45-76); NEUTROPHIL COUNT 13.8 K/uL (1.8-6.4); PLATELET COUNT 155 K/uL (156-360); RBC DIS.WIDTH-CV 17.6 % (11.8-14.6); RBC DIS.WIDTH-SD 55.3 % (39-53); WHITE BLOOD COUNT 15.5 K/uL (4.1-10.2)
[2018-01-29 05:59] LABS: CHLORIDE 107 mEq/L (99-109); POTASSIUM 3.9 mEq/L (3.7-5.4); SODIUM 140 mEq/L (136-147)
[2018-01-29 06:01] LABS: GLUCOSE 152 mg/dL (70-99)
[2018-01-29 06:05] LABS: CREATININE 1.3 mg/dL (0.6-1.3); GFR ESTIMATE (CALCULATED) 58 mL/min/ (58.99-99999)
[2018-01-29 06:06] LABS: UREA NITROGEN (BUN) 42 mg/dL (9-23)
[2018-01-29 14:30] VITALS: BP 135/69
[2018-01-29 19:24] VITALS: BP 128/60
[2018-01-30] VITALS (7 sets, daily range): BP systolic 118–150; BP diastolic 62–73
[2018-01-30 05:50] LABS: HEMATOCRIT 34.9 % (38.0-50.0); HEMOGLOBIN 11.3 G/DL (12.5-16.6); MCH 28.8 PG (29.0-34.0); MCHC 32.4 G/DL (30.0-36.0); PLATELET COUNT 154 K/uL (156-360); RBC DIS.WIDTH-CV 17.9 % (11.8-14.6); RBC DIS.WIDTH-SD 56.3 % (39-53); RED BLOOD COUNT 3.92 M/uL (4.00-5.50)
[2018-01-30 06:26] LABS: CHLORIDE 106 MEQ/L (99-109); CREATININE 1.2 MG/DL (0.6-1.3); GFR ESTIMATE (CALCULATED) > 59 mL/min/ (58.99-99999); GLUCOSE 323 mg/dL (70-99); MAGNESIUM 2.2 mg/dl (1.3-2.7); SODIUM 140 MEQ/L (136-147); UREA NITROGEN (BUN) 47 mg/dL (9-23)
[2018-01-31 04:00] VITALS: BP 129/73
[2018-01-31 05:10] LABS: HEMATOCRIT 36.3 % (38.0-50.0); HEMOGLOBIN 11.8 G/DL (12.5-16.6); MCH 29.2 PG (29.0-34.0); MCHC 32.5 G/DL (30.0-36.0); MCV 89.9 FL (86-99); NRBC (%) 0.2 /100 WBC (0-0); PLATELET COUNT 179 K/uL (156-360); RBC DIS.WIDTH-CV 17.7 % (11.8-14.6); RBC DIS.WIDTH-SD 55.5 % (39-53); RED BLOOD COUNT 4.04 M/uL (4.00-5.50); WHITE BLOOD COUNT 11.4 K/uL (4.1-10.2)
[2018-01-31 06:06] LABS: CHLORIDE 108 MEQ/L (99-109); CREATININE 1.2 MG/DL (0.6-1.3); GFR ESTIMATE (CALCULATED) > 59 mL/min/ (58.99-99999); MAGNESIUM 2.2 mg/dl (1.3-2.7); POTASSIUM 3.9 MEQ/L (3.7-5.4); SODIUM 142 MEQ/L (136-147); UREA NITROGEN (BUN) 44 mg/dL (9-23)
[2018-01-31 06:12] LABS: GLUCOSE 115 mg/dL (70-99)
[2018-01-31 09:48] LABS: HEMOGLOBIN A1c (GLYCOHEMOGLOB) 8.4 % (Below 5.7)
[2018-01-31 10:19] VITALS: BP 132/74
[2018-01-31 12:24] VITALS: BP 120/68
[2018-01-31 16:15] VITALS: BP 117/61
[2018-01-31 18:56] VITALS: BP 125/60
[2018-01-31 23:35] VITALS: BP 117/60
[2018-02-01 04:25] VITALS: BP 142/74
[2018-02-01 05:12] LABS: HEMATOCRIT 36.5 % (38.0-50.0); HEMOGLOBIN 12.1 G/DL (12.5-16.6); MCH 30.3 PG (29.0-34.0); MCHC 33.2 G/DL (30.0-36.0); MCV 91.5 FL (86-99); PLATELET COUNT 177 K/uL (156-360); RBC DIS.WIDTH-CV 18.8 % (11.8-14.6); RBC DIS.WIDTH-SD 56.5 % (39-53); RED BLOOD COUNT 3.99 M/uL (4.00-5.50); WHITE BLOOD COUNT 8.2 K/uL (4.1-10.2)
[2018-02-01 05:40] LABS: CHLORIDE 106 MEQ/L (99-109); CREATININE 1.3 MG/DL (0.6-1.3); GFR ESTIMATE (CALCULATED) 58 mL/min/ (58.99-99999); GLUCOSE 197 mg/dL (70-99); MAGNESIUM 2.3 mg/dl (1.3-2.7); SODIUM 140 MEQ/L (136-147); UREA NITROGEN (BUN) 41 mg/dL (9-23)
[2018-02-01 09:24] VITALS: BP 128/66
[2018-02-01 11:51] VITALS: BP 114/69
[2018-02-01 17:44] VITALS: BP 122/67
[2018-02-01 20:06] VITALS: BP 128/67
[2018-02-02 00:51] VITALS: BP 133/73
[2018-02-02 04:48] VITALS: BP 145/74
[2018-02-02 07:53] VITALS: BP 143/77
[2018-02-02 13:08] VITALS: BP 130/70
[2018-02-02 15:41] VITALS: BP 109/65
[2018-02-02 20:00] VITALS: BP 126/62
[2018-02-03] VITALS (7 sets, daily range): BP systolic 112–138; BP diastolic 61–72
[2018-02-03 08:10] LABS: HEMATOCRIT 41.7 % (38.0-50.0); HEMOGLOBIN 13.2 G/DL (12.5-16.6); MCH 28.2 PG (29.0-34.0); MCHC 31.7 G/DL (30.0-36.0); MCV 89.1 FL (86-99); NRBC (%) 0.1 /100 WBC (0-0); PLATELET COUNT 184 K/uL (156-360); RBC DIS.WIDTH-CV 18.7 % (11.8-14.6); RBC DIS.WIDTH-SD 56.7 % (39-53); RED BLOOD COUNT 4.68 M/uL (4.00-5.50); WHITE BLOOD COUNT 15.9 K/uL (4.1-10.2)
[2018-02-03 08:43] LABS: CHLORIDE 102 MEQ/L (99-109); CREATININE 1.7 MG/DL (0.6-1.3); GFR ESTIMATE (CALCULATED) 43 mL/min/ (58.99-99999); POTASSIUM 3.7 MEQ/L (3.7-5.4); SODIUM 141 MEQ/L (136-147); UREA NITROGEN (BUN) 40 mg/dL (9-23)
[2018-02-03 08:44] LABS: GLUCOSE 98 mg/dL (70-99)
[2018-02-04 03:21] VITALS: BP 113/71
[2018-02-04 08:04] VITALS: BP 133/70
[2018-02-04 08:28] LABS: HEMATOCRIT 40.9 % (38.0-50.0); MCH 28.1 PG (29.0-34.0); MCHC 31.8 G/DL (30.0-36.0); MCV 88.3 FL (86-99); PLATELET COUNT 189 K/uL (156-360); RBC DIS.WIDTH-CV 17.8 % (11.8-14.6); RBC DIS.WIDTH-SD 56.7 % (39-53); RED BLOOD COUNT 4.63 M/uL (4.00-5.50); WHITE BLOOD COUNT 12.6 K/uL (4.1-10.2)
[2018-02-04 08:50] LABS: CHLORIDE 104 MEQ/L (99-109); CREATININE 1.7 MG/DL (0.6-1.3); GFR ESTIMATE (CALCULATED) 43 mL/min/ (58.99-99999); GLUCOSE 137 mg/dL (70-99); SODIUM 140 MEQ/L (136-147); UREA NITROGEN (BUN) 48 mg/dL (9-23)
[2018-02-04] MEDS ORDERED: FLUCONAZOLE200 MG PO (12:06)
[2018-02-04] MEDS ORDERED: MYCOSTATIN 100,60 ML PO (12:06)
[2018-02-04] MEDS ORDERED: ZITHROMAX500 MG PO (12:06)
[2018-02-04] MEDS ORDERED: FUROSEMIDE20 MG PO (12:06)
[2018-02-04] MEDS ORDERED: TRANSDERM-SCOP1 EACH TD (12:06)
[2018-02-04] MEDS ORDERED: AUGMENTIN875 MG PO (12:06)
[2018-02-04] MEDS ORDERED: KLOR-CON M1010 MEQ PO (12:09)
[2018-02-04] MEDS ORDERED: PREDNISONE10 MG PO (12:09)
[2018-02-04 12:16] VITALS: BP 106/67
[2018-02-04 15:50] VITALS: BP 112/65
== END 2018-02-04 17:55 | disposition home health service (06) | DRG 177 ==
LOC: EME 20:32 → EDOF 01-29 00:36 → 4EAST 01-29 00:36 → 5SOUTH 01-29 00:36 → ENRESERV 01-29 00:40 → 4EAST 01-29 14:23 → ENRESERV 02-02 21:13 → 5SOUTH 02-02 22:37
PROVIDERS: Hospitalist; Internal Medicine; Physician Assistant Medical
DX: J69.0 Pneumonitis due to inhalation of food and vomit (principal); J96.21 Acute and chronic respiratory failure with hypoxia; I50.23 Acute on chronic systolic (congestive) heart failure; L89.623 Pressure ulcer of left heel, stage 3; G93.41 Metabolic encephalopathy; I13.0 Hypertensive heart and chronic kidney disease with heart failure and stage 1 through stage 4 chronic kidney disease, or unspecified chronic kidney disease; J44.1 Chronic obstructive pulmonary disease with (acute) exacerbation; J44.0 Chronic obstructive pulmonary disease with (acute) lower respiratory infection; F33.9 Major depressive disorder, recurrent, unspecified; F41.9 Anxiety disorder, unspecified; I48.0 Paroxysmal atrial fibrillation; I25.5 Ischemic cardiomyopathy; N18.3 Chronic kidney disease, stage 3 (moderate); D63.1 Anemia in chronic kidney disease; E11.22 Type 2 diabetes mellitus with diabetic chronic kidney disease; R47.02 Dysphasia; R13.10 Dysphagia, unspecified; E11.36 Type 2 diabetes mellitus with diabetic cataract; E11.42 Type 2 diabetes mellitus with diabetic polyneuropathy; E11.51 Type 2 diabetes mellitus with diabetic peripheral angiopathy without gangrene; I27.20 Pulmonary hypertension, unspecified; J20.9 Acute bronchitis, unspecified; K21.9 Gastro-esophageal reflux disease without esophagitis; M72.0 Palmar fascial fibromatosis [Dupuytren]; F10.11 Alcohol abuse, in remission; Y90.9 Presence of alcohol in blood, level not specified; L89.620 Pressure ulcer of left heel, unstageable; E78.5 Hyperlipidemia, unspecified; E11.65 Type 2 diabetes mellitus with hyperglycemia; G30.9 Alzheimer's disease, unspecified; F02.80 Dementia in other diseases classified elsewhere, unspecified severity, without behavioral disturbance, psychotic disturbance, mood disturbance, and anxiety; I25.10 Atherosclerotic heart disease of native coronary artery without angina pectoris; Z79.4 Long term (current) use of insulin; Z91.11 Patient's noncompliance with dietary regimen; Z90.49 Acquired absence of other specified parts of digestive tract; Z91.19 Patient's noncompliance with other medical treatment and regimen; Z95.810 Presence of automatic (implantable) cardiac defibrillator; Z87.891 Personal history of nicotine dependence; Z95.1 Presence of aortocoronary bypass graft; Z89.411 Acquired absence of right great toe; Z90.01 Acquired absence of eye; I69.321 Dysphasia following cerebral infarction; I69.391 Dysphagia following cerebral infarction; I25.2 Old myocardial infarction; Z82.3 Family history of stroke; Z83.3 Family history of diabetes mellitus
CPT/HCPCS: 71045; 71046; 74220; 80048; 82948; 83036; 83605; 83735; 83880; 84145 90; 84484; 85025; 85027; 87040; 87070; 87205; 92526 GN; 92610 GN; 93005; 94640; 94640 76; 94667; 94668; 94760; 94799; 97530 GO; 97530 GP; 99202; 99281; 99285; J0295; J1644; J1815; J1940; J2543; J2920; J2930; J3370; J7040; J7050; J7512

== ENCOUNTER 2018-02-20 18:53 | Observation (INO) | payer OTHER ==
[~2018-02-20] VITALS: Ht 180.3 cm; Wt 75.1 kg
[~2018-02-20 18:53] MED LIST changes: +ACIDOPHILUS LA1 EAC1 PO; +FLUCONAZOLE200 MG PO; +KLOR-CON M1010 MEQ PO; +MYCOSTATIN 100,60 ML PO; +NOVOLOG100 UNIT/1 SC; +TRANSDERM-SCOP1 EACH TD; +ZESTRIL2.5 MG PO; +ZITHROMAX500 MG PO
[2018-02-20 20:22] LABS: BASOPHIL (%) 0.4 % (0-1); EOSINOPHIL (%) 0.6 % (0-5); EOSINOPHIL COUNT 0.1 K/uL (0-0.3); HEMATOCRIT 37.1 % (38.0-50.0); HEMOGLOBIN 11.9 G/DL (12.5-16.6); IMMATURE GRANULOCYTE (%) 1.2 % (0.0-0.7); LYMPHOCYTE (%) 27.4 % (15-42); LYMPHOCYTE COUNT 2.3 K/uL (1.0-2.8); MCH 28.7 PG (29.0-34.0); MCHC 32.1 G/DL (30.0-36.0); MCV 89.6 FL (86-99); MONOCYTE (%) 8.3 % (3-12); MONOCYTE COUNT 0.7 K/uL (0-0.8); NEUTROPHIL (%) 62.1 % (45-76); NEUTROPHIL COUNT 5.2 K/uL (1.8-6.4); PLATELET COUNT 157 K/uL (156-360); RBC DIS.WIDTH-CV 17.5 % (11.8-14.6); RBC DIS.WIDTH-SD 57.6 % (39-53); RED BLOOD COUNT 4.14 M/uL (4.00-5.50); WHITE BLOOD COUNT 8.4 K/uL (4.1-10.2)
[2018-02-20 20:35] LABS: CHLORIDE 105 mEq/L (99-109); POTASSIUM 3.9 mEq/L (3.7-5.4); SODIUM 142 mEq/L (136-147)
[2018-02-20 20:36] LABS: GLUCOSE 175 mg/dL (70-99)
[2018-02-20 20:40] LABS: CREATININE 2.2 mg/dL (0.6-1.3); GFR ESTIMATE (CALCULATED) 32 mL/min/ (58.99-99999)
[2018-02-20 20:41] LABS: UREA NITROGEN (BUN) 58 mg/dL (9-23)
[2018-02-20 21:12] LABS: APPEARANCE CLEAR ((CLEAR)); BILIRUBIN NEGATIVE; BLOOD NEGATIVE; COLOR YELLOW ((YELLOW)); GLUCOSE (STRIP) NEGATIVE; KETONES NEGATIVE; LEUKOCYTES NEGATIVE; NITRITE NEGATIVE; PROTEIN (STRIP) NEGATIVE; SPECIFIC GRAVITY 1.015 (1.000-1.030); UCUL ADDED? NO; UROBILINOGEN 0.2 MG/DL (0.2-1.0)
[2018-02-20] MEDS ORDERED: POTASSIUM CHLOR8 ME3 PO (23:48)
[2018-02-20] MEDS ORDERED: LASIX20 MG PO (23:49)
[2018-02-20] MEDS ORDERED: PREDNISONE5 MG PO (23:52)
[2018-02-21 01:46] VITALS: BP 140/63
[2018-02-21 05:29] LABS: BASOPHIL (%) 0.1 % (0-1); EOSINOPHIL (%) 1.6 % (0-5); EOSINOPHIL COUNT 0.1 K/uL (0-0.3); HEMATOCRIT 34.3 % (38.0-50.0); HEMOGLOBIN 10.9 G/DL (12.5-16.6); LYMPHOCYTE (%) 28.3 % (15-42); LYMPHOCYTE COUNT 2.2 K/uL (1.0-2.8); MCH 28.1 PG (29.0-34.0); MCHC 31.8 G/DL (30.0-36.0); MCV 88.4 FL (86-99); MONOCYTE COUNT 0.7 K/uL (0-0.8); NEUTROPHIL COUNT 4.7 K/uL (1.8-6.4); PLATELET COUNT 145 K/uL (156-360); RBC DIS.WIDTH-CV 17.4 % (11.8-14.6); RED BLOOD COUNT 3.88 M/uL (4.00-5.50); WHITE BLOOD COUNT 7.9 K/uL (4.1-10.2)
[2018-02-21 05:58] LABS: ALBUMIN 3.2 G/DL (3.2-4.8); ALKALINE PHOSPHATASE 46 IU/L (3-129); ALT (GPT) 11 IU/L (3-49); AST (GOT) 13 IU/L (2-34); CHLORIDE 109 MEQ/L (99-109); GFR ESTIMATE (CALCULATED) 49 mL/min/ (58.99-99999); POTASSIUM 3.9 MEQ/L (3.7-5.4); SODIUM 142 MEQ/L (136-147); TOTAL BILIRUBIN 0.6 MG/DL (0.0-1.0); TOTAL PROTEIN 6.1 G/DL (6.4-8.3); UREA NITROGEN (BUN) 48 mg/dL (9-23)
[2018-02-21 06:01] LABS: CREATININE 1.5 MG/DL (0.6-1.3); GLUCOSE 117 mg/dL (70-99)
[2018-02-21 07:50] VITALS: BP 107/59
[2018-02-21 11:20] VITALS: BP 126/67
[2018-02-21 12:22] VITALS: BP 133/64
[2018-02-21 15:39] VITALS: BP 114/63
[2018-02-21 19:30] VITALS: BP 147/68
[2018-02-22] VITALS: BP 132/64
[2018-02-22 04:00] VITALS: BP 136/68
[2018-02-22 07:59] VITALS: BP 110/54
[2018-02-22] MEDS ORDERED: SANTYL30 GM TP (10:29)
[2018-02-22] MEDS ORDERED: AUGMENTIN500 MG PO (10:33)
== END 2018-02-22 14:50 | disposition home or self-care (01) ==
LOC: EME 18:53 → EDOF 02-21 00:18 → 4SOUTH 02-21 00:18 → EDOF 02-21 00:18 → ENRESERV 02-21 00:20 → 4SOUTH 02-21 01:29 → ENPENDDIS 02-22 11:03 → 4SOUTH 02-22 14:50
PROVIDERS: Emergency Medicine; Internal Medicine
DX: J69.0 Pneumonitis due to inhalation of food and vomit (principal); R13.19 Other dysphagia; R09.02 Hypoxemia; Z91.19 Patient's noncompliance with other medical treatment and regimen; I25.10 Atherosclerotic heart disease of native coronary artery without angina pectoris; Z95.1 Presence of aortocoronary bypass graft; I13.0 Hypertensive heart and chronic kidney disease with heart failure and stage 1 through stage 4 chronic kidney disease, or unspecified chronic kidney disease; I50.22 Chronic systolic (congestive) heart failure; E11.22 Type 2 diabetes mellitus with diabetic chronic kidney disease; N18.3 Chronic kidney disease, stage 3 (moderate); Z95.810 Presence of automatic (implantable) cardiac defibrillator; J44.9 Chronic obstructive pulmonary disease, unspecified; E11.51 Type 2 diabetes mellitus with diabetic peripheral angiopathy without gangrene; E78.5 Hyperlipidemia, unspecified; Z99.81 Dependence on supplemental oxygen; L89.613 Pressure ulcer of right heel, stage 3; L89.620 Pressure ulcer of left heel, unstageable; I25.2 Old myocardial infarction; I48.91 Unspecified atrial fibrillation; F32.9 Major depressive disorder, single episode, unspecified; D64.9 Anemia, unspecified; Z87.891 Personal history of nicotine dependence; Z86.73 Personal history of transient ischemic attack (TIA), and cerebral infarction without residual deficits
CPT/HCPCS: 71045; 80048; 80053; 81003; 82948; 83605; 84145 90; 85025; 87040; 92610 GN; 94640; 94760; 94799; 99281; 99285; G0378; G8978 GP CM; G8979 GP CK; G8980 GP CM; G8987 GO CM; G8988 GO CK; G8989 GO CM; G8996 GN CK; G8997 GN CK; G8998 GN CK; J1644; J1956; J2543; J7050; J7512

== ENCOUNTER 2018-03-15 13:02 | Inpatient (IN) | payer OTHER ==
[~2018-03-15] VITALS: Ht 180.3 cm; Wt 80.0 kg
[~2018-03-15 13:02] MED LIST changes: +LASIX20 MG PO; +POTASSIUM CHLOR8 ME3 PO; +SANTYL30 GM TP
[2018-03-15 14:40] LABS: BASOPHIL (%) 0.3 % (0-1); EOSINOPHIL (%) 0.5 % (0-5); EOSINOPHIL COUNT 0.1 K/uL (0-0.3); HEMOGLOBIN 12.4 G/DL (12.5-16.6); IMMATURE GRANULOCYTE (%) 0.3 % (0.0-0.7); LYMPHOCYTE (%) 19.8 % (15-42); LYMPHOCYTE COUNT 2.4 K/uL (1.0-2.8); MCH 29.3 PG (29.0-34.0); MCHC 31.8 G/DL (30.0-36.0); MCV 92.2 FL (86-99); MONOCYTE (%) 5.9 % (3-12); MONOCYTE COUNT 0.7 K/uL (0-0.8); NEUTROPHIL (%) 73.2 % (45-76); NEUTROPHIL COUNT 8.9 K/uL (1.8-6.4); NRBC (%) 0.2 /100 WBC (0-0); PLATELET COUNT 201 K/uL (156-360); RBC DIS.WIDTH-SD 62.9 % (39-53); RED BLOOD COUNT 4.23 M/uL (4.00-5.50); WHITE BLOOD COUNT 12.2 K/uL (4.1-10.2)
[2018-03-15 14:52] LABS: ALBUMIN 4.2 g/dL (3.2-4.8)
[2018-03-15 14:53] LABS: CHLORIDE 107 mEq/L (99-109); POTASSIUM 5.1 mEq/L (3.7-5.4); SODIUM 143 mEq/L (136-147)
[2018-03-15 14:55] LABS: GLUCOSE 97 mg/dL (70-99)
[2018-03-15 14:57] LABS: TOTAL BILIRUBIN 0.6 mg/dL (0.0-1.0)
[2018-03-15 14:58] LABS: ALKALINE PHOSPHATASE 69 IU/L (3-129)
[2018-03-15 14:59] LABS: CREATININE 2.1 mg/dL (0.6-1.3); GFR ESTIMATE (CALCULATED) 33 mL/min/ (58.99-99999)
[2018-03-15 15:00] LABS: AST (GOT) 19 IU/L (2-34); UREA NITROGEN (BUN) 47 mg/dL (9-23)
[2018-03-15 15:02] LABS: ALT (GPT) 18 IU/L (3-49)
[2018-03-15 15:05] LABS: TROP-I INTERPRETATION NEGATIVE; TROPONIN-I 0.05 ng/mL (0.0-0.30)
[2018-03-15] MEDS ORDERED: FENOFIBRATE160 M1 PO (16:50)
[2018-03-15] MEDS ORDERED: AUGMENTIN500 MG PO (16:51)
[2018-03-15 16:55] LABS: APPEARANCE CLEAR ((CLEAR)); BILIRUBIN NEGATIVE; BLOOD NEGATIVE; COLOR YELLOW ((YELLOW)); GLUCOSE (STRIP) NEGATIVE; KETONES NEGATIVE; LEUKOCYTES NEGATIVE; NITRITE NEGATIVE; PROTEIN (STRIP) NEGATIVE; SPECIFIC GRAVITY 1.015 (1.000-1.030); UCUL ADDED? NO; UROBILINOGEN 0.2 MG/DL (0.2-1.0)
[2018-03-15 18:00] VITALS: BP 121/57
[2018-03-15 21:00] VITALS: BP 167/86
[2018-03-15 23:54] VITALS: BP 110/66
[2018-03-16 04:42] VITALS: BP 121/82
[2018-03-16 06:24] LABS: HEMATOCRIT 30.1 % (38.0-50.0); MCH 29.4 PG (29.0-34.0); MCHC 31.9 G/DL (30.0-36.0); RBC DIS.WIDTH-CV 18.9 % (11.8-14.6); RBC DIS.WIDTH-SD 63.9 % (39-53); WHITE BLOOD COUNT 11.4 K/uL (4.1-10.2)
[2018-03-16 06:28] LABS: HEMOGLOBIN 9.6 G/DL (12.5-16.6); RED BLOOD COUNT 3.27 M/uL (4.00-5.50)
[2018-03-16 06:42] LABS: CHLORIDE 110 MEQ/L (99-109); CREATININE 1.7 MG/DL (0.6-1.3); GFR ESTIMATE (CALCULATED) 43 mL/min/ (58.99-99999); GLUCOSE 77 mg/dL (70-99); SODIUM 142 MEQ/L (136-147); UREA NITROGEN (BUN) 32 mg/dL (9-23)
[2018-03-16 06:43] LABS: POTASSIUM 3.7 MEQ/L (3.7-5.4)
[2018-03-16 07:00] VITALS: BP 89/53
[2018-03-16 08:05] LABS: BASOPHIL (%) 0.3 % (0-1); EOSINOPHIL (%) 0.3 % (0-5); IMMATURE GRANULOCYTE (%) 0.4 % (0.0-0.7); LYMPHOCYTE (%) 22.1 % (15-42); LYMPHOCYTE COUNT 2.5 K/uL (1.0-2.8); MONOCYTE (%) 7.4 % (3-12); MONOCYTE COUNT 0.8 K/uL (0-0.8); NEUTROPHIL (%) 69.5 % (45-76); NEUTROPHIL COUNT 7.9 K/uL (1.8-6.4); PLAT.SUFFICIENCY ADEQUATE
[2018-03-16 08:06] LABS: PLATELET COUNT 135 K/uL (156-360)
[2018-03-16 11:05] VITALS: BP 90/53
[2018-03-16 15:18] VITALS: BP 134/99
[2018-03-16 19:35] VITALS: BP 103/52
[2018-03-16 23:39] VITALS: BP 144/53
[2018-03-17 06:25] LABS: BASOPHIL (%) 0.3 % (0-1); EOSINOPHIL COUNT 0.1 K/uL (0-0.3); HEMATOCRIT 27.9 % (38.0-50.0); HEMOGLOBIN 8.9 G/DL (12.5-16.6); IMMATURE GRANULOCYTE (%) 0.4 % (0.0-0.7); LYMPHOCYTE (%) 25.3 % (15-42); LYMPHOCYTE COUNT 2.3 K/uL (1.0-2.8); MCH 29.3 PG (29.0-34.0); MCHC 31.9 G/DL (30.0-36.0); MCV 91.8 FL (86-99); MONOCYTE (%) 6.4 % (3-12); MONOCYTE COUNT 0.6 K/uL (0-0.8); NEUTROPHIL (%) 66.6 % (45-76); NEUTROPHIL COUNT 5.9 K/uL (1.8-6.4); PLATELET COUNT 124 K/uL (156-360); RBC DIS.WIDTH-CV 18.9 % (11.8-14.6); RBC DIS.WIDTH-SD 63.5 % (39-53); RED BLOOD COUNT 3.04 M/uL (4.00-5.50); WHITE BLOOD COUNT 8.9 K/uL (4.1-10.2)
[2018-03-17 06:46] LABS: ALBUMIN 2.7 G/DL (3.2-4.8); ALKALINE PHOSPHATASE 44 IU/L (3-129); ALT (GPT) 9 IU/L (3-49); AST (GOT) 14 IU/L (2-34); CHLORIDE 113 MEQ/L (99-109); CREATININE 1.9 MG/DL (0.6-1.3); GFR ESTIMATE (CALCULATED) 37 mL/min/ (58.99-99999); POTASSIUM 3.7 MEQ/L (3.7-5.4); SODIUM 144 MEQ/L (136-147); TOTAL BILIRUBIN 0.4 MG/DL (0.0-1.0); TOTAL PROTEIN 4.9 G/DL (6.4-8.3); UREA NITROGEN (BUN) 28 mg/dL (9-23)
[2018-03-17 06:56] LABS: GLUCOSE 52 mg/dL (70-99)
[2018-03-17 07:33] VITALS: BP 99/54
[2018-03-17 09:33] VITALS: BP 102/55
[2018-03-17 11:28] VITALS: BP 109/58
[2018-03-17 21:30] VITALS: BP 108/56
[2018-03-18 05:58] LABS: BASOPHIL (%) 0.4 % (0-1); EOSINOPHIL COUNT 0.2 K/uL (0-0.3); HEMATOCRIT 27.8 % (38.0-50.0); HEMOGLOBIN 8.7 G/DL (12.5-16.6); IMMATURE GRANULOCYTE (%) 0.5 % (0.0-0.7); LYMPHOCYTE COUNT 1.9 K/uL (1.0-2.8); MCH 28.8 PG (29.0-34.0); MCHC 31.3 G/DL (30.0-36.0); MCV 92.1 FL (86-99); MONOCYTE (%) 7.2 % (3-12); MONOCYTE COUNT 0.6 K/uL (0-0.8); NEUTROPHIL (%) 64.9 % (45-76); NEUTROPHIL COUNT 4.9 K/uL (1.8-6.4); PLATELET COUNT 120 K/uL (156-360); RBC DIS.WIDTH-CV 18.6 % (11.8-14.6); RBC DIS.WIDTH-SD 62.5 % (39-53); RED BLOOD COUNT 3.02 M/uL (4.00-5.50); WHITE BLOOD COUNT 7.6 K/uL (4.1-10.2)
[2018-03-18 06:14] LABS: CHLORIDE 112 MEQ/L (99-109); CREATININE 1.6 MG/DL (0.6-1.3); GFR ESTIMATE (CALCULATED) 46 mL/min/ (58.99-99999); POTASSIUM 3.9 MEQ/L (3.7-5.4); SODIUM 141 MEQ/L (136-147); UREA NITROGEN (BUN) 23 mg/dL (9-23)
[2018-03-18 06:41] LABS: GLUCOSE 125 mg/dL (70-99)
[2018-03-18 07:28] VITALS: BP 106/56
[2018-03-18 10:20] LABS: COMMENTS - BLOOD GASES A+C+; DEVICE RA; PCO2 28 mm Hg (35-45); PO2 73 mm Hg (80-100); SITE RR; TOTAL RESP RATE 22 resp/min; pH 7.47 (7.35-7.45)
[2018-03-18 10:21] LABS: BASE EXCESS -2.4 mEq/L (-3 to +3); BICARBONATE 20.4 mEq/L (22-26); CARBOXY HGB 1.6 % (0-5); METHEMOGLOBIN 1.4 % (0-1.5)
[2018-03-18] MEDS ORDERED: DOCUSATE SODIU100 MG PO (11:42)
== END 2018-03-18 16:20 | disposition home health service (06) | DRG 177 ==
LOC: EME 13:02 → EDOF 16:20 → 5EAST 16:20 → ENRESERV 16:22 → 5EAST 17:17
PROVIDERS: Emergency Medicine; Hospitalist
DX: J69.0 Pneumonitis due to inhalation of food and vomit (principal); L89.622 Pressure ulcer of left heel, stage 2; L89.620 Pressure ulcer of left heel, unstageable; L89.610 Pressure ulcer of right heel, unstageable; E11.22 Type 2 diabetes mellitus with diabetic chronic kidney disease; J44.9 Chronic obstructive pulmonary disease, unspecified; I12.9 Hypertensive chronic kidney disease with stage 1 through stage 4 chronic kidney disease, or unspecified chronic kidney disease; N18.3 Chronic kidney disease, stage 3 (moderate); Z95.810 Presence of automatic (implantable) cardiac defibrillator; G93.41 Metabolic encephalopathy; E78.5 Hyperlipidemia, unspecified; I25.10 Atherosclerotic heart disease of native coronary artery without angina pectoris; M72.0 Palmar fascial fibromatosis [Dupuytren]; I25.2 Old myocardial infarction; I44.2 Atrioventricular block, complete; I25.5 Ischemic cardiomyopathy; F03.90 Unspecified dementia, unspecified severity, without behavioral disturbance, psychotic disturbance, mood disturbance, and anxiety; Z87.891 Personal history of nicotine dependence; Z95.1 Presence of aortocoronary bypass graft; R09.02 Hypoxemia; E87.2 Acidosis; I48.91 Unspecified atrial fibrillation; Z86.73 Personal history of transient ischemic attack (TIA), and cerebral infarction without residual deficits; E11.42 Type 2 diabetes mellitus with diabetic polyneuropathy; E11.51 Type 2 diabetes mellitus with diabetic peripheral angiopathy without gangrene; J98.11 Atelectasis; Z89.411 Acquired absence of right great toe; Z87.01 Personal history of pneumonia (recurrent); E11.36 Type 2 diabetes mellitus with diabetic cataract; H54.61 Unqualified visual loss, right eye, normal vision left eye
CPT/HCPCS: 36600; 71045; 71046; 74230; 80048; 80053; 80202; 81003; 82948; 83605; 84134; 84484; 85025; 87040; 87641; 92610 GN; 92611 GN; 93005; 94640; 94799; 99281; 99285; J1644; J1815; J2543; J3370; J7050; J7512

== ENCOUNTER 2018-03-25 19:46 | Inpatient (IN) | payer OTHER ==
[~2018-03-25] VITALS: Ht 180.3 cm; Wt 78.9 kg
[~2018-03-25 19:46] MED LIST changes: +DOCUSATE SODIU100 MG PO; +PREDNISONE2.5 MG PO
[2018-03-25 20:32] LABS: HEMATOCRIT 36.8 % (38.0-50.0); MCH 29.6 PG (29.0-34.0); MCHC 31.5 G/DL (30.0-36.0); MCV 93.9 FL (86-99); RBC DIS.WIDTH-CV 19.3 % (11.8-14.6); RBC DIS.WIDTH-SD 65.2 % (39-53); WHITE BLOOD COUNT 11.4 K/uL (4.1-10.2)
[2018-03-25 20:33] LABS: HEMOGLOBIN 11.6 G/DL (12.5-16.6); PLATELET COUNT 248 K/uL (156-360); RED BLOOD COUNT 3.92 M/uL (4.00-5.50)
[2018-03-25 20:38] LABS: CHLORIDE 107 mEq/L (99-109); POTASSIUM 5.1 mEq/L (3.7-5.4); SODIUM 142 mEq/L (136-147)
[2018-03-25 20:39] LABS: GLUCOSE 167 mg/dL (70-99)
[2018-03-25 20:43] LABS: CREATININE 1.5 mg/dL (0.6-1.3); GFR ESTIMATE (CALCULATED) 49 mL/min/ (58.99-99999)
[2018-03-25 20:44] LABS: UREA NITROGEN (BUN) 22 mg/dL (9-23)
[2018-03-25] MEDS ORDERED: AZITHROMYCIN500 M1 PO (23:38)
[2018-03-25] MEDS ORDERED: DUONEB 2.5-0.5 M3 ML AEROSOL (23:39)
[2018-03-25] MEDS ORDERED: NOVOLOG PE100 UNITS/ SC ×2 (23:41)
[2018-03-26] VITALS (8 sets, daily range): BP systolic 103–140; BP diastolic 60–82
[2018-03-26 04:23] LABS: APPEARANCE CLEAR ((CLEAR)); BILIRUBIN NEGATIVE; BLOOD NEGATIVE; COLOR YELLOW ((YELLOW)); GLUCOSE (STRIP) NEGATIVE; KETONES NEGATIVE; LEUKOCYTES NEGATIVE; NITRITE NEGATIVE; PROTEIN (STRIP) 30; SPECIFIC GRAVITY 1.014 (1.000-1.030); UCUL ADDED? NO; UROBILINOGEN 0.2 MG/DL (0.2-1.0)
[2018-03-27 04:01] VITALS: BP 124/63
[2018-03-27 05:19] LABS: BASOPHIL (%) 0.5 % (0-1); BASOPHIL COUNT 0.1 K/uL (0-0.1); EOSINOPHIL (%) 1.6 % (0-5); EOSINOPHIL COUNT 0.2 K/uL (0-0.3); HEMATOCRIT 32.8 % (38.0-50.0); HEMOGLOBIN 10.2 G/DL (12.5-16.6); IMMATURE GRANULOCYTE (%) 0.5 % (0.0-0.7); LYMPHOCYTE COUNT 2.9 K/uL (1.0-2.8); MCH 28.7 PG (29.0-34.0); MCHC 31.1 G/DL (30.0-36.0); MCV 92.1 FL (86-99); MONOCYTE (%) 5.8 % (3-12); MONOCYTE COUNT 0.6 K/uL (0-0.8); NEUTROPHIL (%) 64.6 % (45-76); NEUTROPHIL COUNT 6.9 K/uL (1.8-6.4); PLATELET COUNT 228 K/uL (156-360); RED BLOOD COUNT 3.56 M/uL (4.00-5.50); WHITE BLOOD COUNT 10.6 K/uL (4.1-10.2)
[2018-03-27 05:48] LABS: CHLORIDE 111 MEQ/L (99-109); CREATININE 1.4 MG/DL (0.6-1.3); GFR ESTIMATE (CALCULATED) 53 mL/min/ (58.99-99999); POTASSIUM 4.2 MEQ/L (3.7-5.4); SODIUM 140 MEQ/L (136-147); UREA NITROGEN (BUN) 21 mg/dL (9-23)
[2018-03-27 05:50] LABS: GLUCOSE 59 mg/dL (70-99)
[2018-03-27 07:59] VITALS: BP 119/62
[2018-03-27 11:55] VITALS: BP 123/65
[2018-03-27 15:30] VITALS: BP 136/76
[2018-03-28] VITALS: BP 132/67
[2018-03-28 07:16] VITALS: BP 106/67
[2018-03-28 16:12] VITALS: BP 104/59
[2018-03-28 20:32] VITALS: BP 120/68
[2018-03-28 22:30] VITALS: BP 134/68
[2018-03-28 23:52] VITALS: BP 145/72
[2018-03-29 07:30] VITALS: BP 104/57
[2018-03-29 09:14] VITALS: BP 118/71
[2018-03-29 15:41] VITALS: BP 94/55
[2018-03-29 16:40] VITALS: BP 112/61
[2018-03-30 00:49] VITALS: BP 121/62
[2018-03-30 07:05] VITALS: BP 114/66
[2018-03-30 16:00] VITALS: BP 130/72
[2018-03-30 23:49] VITALS: BP 141/78
[2018-03-31 07:45] VITALS: BP 123/74
[2018-03-31] MEDS ORDERED: AMOX TR-K CLV1 EAC4 PO (12:25)
[2018-03-31] MEDS ORDERED: LEVEMIR100 UNIT/2 SC (12:28)
[2018-03-31] MEDS ORDERED: SANTYL30 GM TP (12:29)
[2018-03-31] MEDS ORDERED: NOVOLOG 10100 UNITS/ SC (12:29)
[2018-03-31 16:08] VITALS: BP 110/56
== END 2018-03-31 16:19 | DRG 178 ==
LOC: EME 19:46 → 5SOUTH 23:51 → EDOF 23:51 → ENRESERVDT 03-26 00:04 → 5SOUTH 03-26 01:22 → ENRESERV 03-28 21:12 → 5EAST 03-28 22:10
PROVIDERS: Hospitalist; Internal Medicine
DX: J69.0 Pneumonitis due to inhalation of food and vomit (principal); J44.1 Chronic obstructive pulmonary disease with (acute) exacerbation; J96.10 Chronic respiratory failure, unspecified whether with hypoxia or hypercapnia; L89.610 Pressure ulcer of right heel, unstageable; L89.622 Pressure ulcer of left heel, stage 2; Z99.81 Dependence on supplemental oxygen; I13.0 Hypertensive heart and chronic kidney disease with heart failure and stage 1 through stage 4 chronic kidney disease, or unspecified chronic kidney disease; I50.9 Heart failure, unspecified; N18.3 Chronic kidney disease, stage 3 (moderate); E11.22 Type 2 diabetes mellitus with diabetic chronic kidney disease; E11.42 Type 2 diabetes mellitus with diabetic polyneuropathy; E11.51 Type 2 diabetes mellitus with diabetic peripheral angiopathy without gangrene; I48.91 Unspecified atrial fibrillation; I25.5 Ischemic cardiomyopathy; I25.10 Atherosclerotic heart disease of native coronary artery without angina pectoris; E78.5 Hyperlipidemia, unspecified; F03.90 Unspecified dementia, unspecified severity, without behavioral disturbance, psychotic disturbance, mood disturbance, and anxiety; H54.61 Unqualified visual loss, right eye, normal vision left eye; I25.2 Old myocardial infarction; Z95.810 Presence of automatic (implantable) cardiac defibrillator; Z95.1 Presence of aortocoronary bypass graft; Z89.411 Acquired absence of right great toe; F10.11 Alcohol abuse, in remission; F32.9 Major depressive disorder, single episode, unspecified; Z86.73 Personal history of transient ischemic attack (TIA), and cerebral infarction without residual deficits; Z87.891 Personal history of nicotine dependence; E11.649 Type 2 diabetes mellitus with hypoglycemia without coma
CPT/HCPCS: 71046; 80048; 81003; 82948; 83605; 85025; 85027; 87040; 87070; 87205; 87449; 92526 GN; 92610 GN; 94640; 94669; 94760; 94799; 97530 GO; 99281; 99285; A6260; J0692; J1650; J1815; J2543; J3370; J7512